=== PATIENT | male | born 1945 | race Caucasian/White ===

== ENCOUNTER 2018-02-25 14:25 | Inpatient (IN) | payer MEDICARE, MEDICAID ==
[2018-02-25] MEDS ORDERED: Acetaminophen 650 MG Supp RECTAL ONE (14:58)
--- NOTE | 2018-02-25 15:05 | CT ---
Head CT Technique: Multiple axial sections through the brain were obtained. Intravenous contrast was not utilized. Comparison: Prior head CT study of 05/01/16 and MRI brain of 05/03/16. Findings: Ventricles along with basal cisterns and sulci over the convexities are moderately prominent. Diminished density is noted within portions of the periventricular white matter compatible with small vessel ischemic demyelination change. Several small old infarcts are noted within the left occipital lobe. Several old lacunar infarcts are seen within the basal ganglia. No other abnormal parenchymal densities are seen. No evidence of intracranial hemorrhage. No midline shift or mass effect is seen. Bone window settings were reviewed which shows the visualized sinuses to appear clear. No acute calvarial abnormality is seen. Impression: 1. Senescent change as noted above. No acute intracranial abnormality is identified. Diagnostic code #2
[2018-02-25] MEDS ORDERED: Sodium Chloride 0.9% 1,000 ML IV ONE ×4 (15:19→18:05)
[2018-02-25] MEDS ORDERED: Albuterol/Ipratropium 3.0-0.5 MG/3 ML Neb Soln NEB ONE (15:26)
--- NOTE | 2018-02-25 15:54 | CR ---
Chest: Portable view of the chest was obtained. Comparison: Prior chest x-ray of 05/04/16. Heart size is slightly enlarged. Tortuous thoracic aorta is seen. Lungs are clear with no acute parenchymal densities. Bony structures are grossly intact. Impression: 1. Slight cardiomegaly. Nothing acute is appreciated on portable chest x-ray. Diagnostic code #2
[2018-02-25] MEDS ORDERED: cefTRIAXone 2 GM in Sodium Chloride 0.9% 100 ML IV ONE (17:18)
[2018-02-25] MEDS ORDERED: Pantoprazole 40 MG Vial IVPUSH ONE (17:57)
--- NOTE | 2018-02-25 18:09 | EDM.PDOC ---
ED HPI GENERAL MEDICAL PROBLEM - General Chief Complaint: Neuro Symptoms/Deficits Stated Complaint: AMBULANCE Time Seen by Provider: 02/25/18 14:49 Source of Information: Reports: Patient, Family, Usp Records History Limitations: Reports: Altered Mental Status - History of Present Illness INITIAL COMMENTS - FREE TEXT/NARRATIVE: The patient presents from [facility] by [facility] for an unresponsive episode. He was last known well about 12:30pm today. He went unresponsive and then he vomited what looked like blood. He has a fever or 103 when he arrived here. He had no seizure activity. He has no cough. He is alert now but will only answer yes or no and he will follow some commands. He is in the long-term because or a stroke with left sided weakness. He has no headache, chest pain, shortenss of breath, or cough. He has no abdominal pain. Onset: Sudden Duration: Minutes: Severity: Moderate Improves with: Reports: None Worsens with: Reports: None Associated Symptoms: Reports: Fever/Chills, Nausea/Vomiting. Denies: Chest Pain , Cough, Headaches, Shortness of Breath - Related Data Allergies Allergy/AdvReac Type Severity Reaction Status Date / Time No Known Allergies Allergy Verified 05/01/16 15:13 Home Meds: Home Meds Aspirin [Halfprin] 81 mg PO DAILY #30 tab.ec 05/07/16 [Rx] Captopril [Capoten] 12.5 mg PO Q8H #30 tablet 05/07/16 [Rx] Clopidogrel [Plavix] 75 mg PO DAILY #30 tablet 05/07/16 [Rx] Furosemide [Lasix] 10 mg PO DAILY #30 tablet 05/07/16 [Rx] Sertraline [Zoloft] 25 mg PO DAILY #30 tablet 05/07/16 [Rx] Simvastatin [Zocor] 10 mg PO BEDTIME #30 tablet 05/07/16 [Rx] Sulfamethoxazole/Trimethoprim [IJD: Sulfamethoxazole/Trimethoprim DS] 1 tab PO BID #14 tablet 05/07/16 [Rx] amLODIPine [Norvasc] 5 mg PO BEDTIME #30 tablet 05/07/16 [Rx] traZODone 50 mg PO BEDTIME #30 tablet 05/07/16 [Rx] Past Medical History - Past Health History Medical/Surgical History: Denies Medical/Surgical History HEENT History: Reports: Hard of Hearing Cardiovascular History: Reports: Hypertension Respiratory History: Reports: Asthma Other Respiratory History: thinks the asthma went away on its own;had it in high school Gastrointestinal History: Reports: Chronic Constipation Genitourinary History: Reports: Retention, Urinary Musculoskeletal History: Reports: Osteoarthritis Neurological History: Reports: CVA Other Neuro History: 2010 Psychiatric History: Reports: Depression Other Psychiatric History: insomnia - Past Surgical History HEENT Surgical History: Reports: Tonsillectomy Social & Family History - Family History Family Medical History: Noncontributory - Tobacco Use Smoking Status *Q: Unknown Ever Smoked - Caffeine Use Caffeine Use: Reports: None - Living Situation & Occupation Living situation: Reports: Single, Alone Occupation: Retired ED ROS GENERAL - Review of Systems Review Of Systems: See Below Constitutional: Reports: Fever, Chills HEENT: Reports: No Symptoms Respiratory: Reports: No Symptoms Cardiovascular: Reports: No Symptoms Endocrine: Reports: No Symptoms GI/Abdominal: Reports: Nausea, Vomiting. Denies: Abdominal Pain ED EXAM, NEURO - Physical Exam Exam: See Below Exam Limited By: No Limitations General Appearance: Alert, No Apparent Distress Ears: Normal External Exam Nose: Normal Inspection Head Exam: Atraumatic, Normocephalic Neck: Normal Inspection Respiratory/Chest: No Respiratory Distress, Rhonchi Cardiovascular: Regular Rate, Rhythm, No Edema, No Murmur GI/Abdominal: Soft, Non-Tender, No Organomegaly, No Mass Neurological: Alert, Other (Left sided weakness) EKG INTERPRETATION EKG Date: 02/25/18 Time: 14:59 Rhythm: Other (sinus tachycardia) Rate (Beats/Min): 115 [place]: Normal P-Wave: Present QRS: RBBB ST-T: Normal QT: Normal Course - Vital Signs Last Recorded V/S: Last Vital Signs Temp 103.9 F H 02/25/18 15:11 Pulse 122 H 02/25/18 14:35 Resp 40 H 02/25/18 14:35 BP 123/80 02/25/18 14:35 Pulse Ox 94 L 02/25/18 15:26 - Orders/Labs/Meds Orders: Active Orders 24 hr Category Date Time Status EKG Documentation Completion [RC] ASDIRECTED Care 02/25/18 15:27 Active RT Aerosol Therapy [RC] ASDIRECTED Care 02/25/18 15:26 Active CULTURE BLOOD [BC] Stat Lab 02/25/18 15:18 Received CULTURE BLOOD [BC] Stat Lab 02/25/18 15:29 Received CULTURE URINE [RM] Stat Lab 02/25/18 16:40 Received LACTIC ACID [CHEM] Stat Lab 02/25/18 17:58 Ordered UA W/MICROSCOPIC [URIN] Stat Lab 02/25/18 16:40 Results cefTRIAXone [Rocephin] 2 gm Med 02/25/18 17:18 Active Sodium Chloride 0.9% [Normal Saline] 100 ml IV ONETIME Blood Culture x2 Reflex Set [OM.PC] Stat Oth 02/25/18 14:57 Ordered EKG 12 Lead [EK] Stat Ther 02/25/18 15:26 Ordered Medication Orders Ceftriaxone Sodium 2 gm/ (Sodium Chloride) 100 mls @ 100 mls/hr IV ONETIME ONE Stop: 02/25/18 18:17 Labs: Laboratory Tests 02/25/18 02/25/18 02/25/18 Range/Units 14:38 14:38 14:38 WBC 8.90 (4.23-9.07) K/mm3 RBC 6.08 (4.63-6.08) M/mm3 Hgb 16.6 (13.7-17.5) gm/L Hct 50.5 (40.1-51.0) % MCV 83.1 (79.0-92.2) fl MCH 27.3 (25.7-32.2) pg MCHC 32.9 (32.2-35.5) g/dl RDW Std Deviation 43.7 (35.1-43.9) fL Plt Count 235 (163-337) K/mm3 MPV 9.7 (9.4-12.3) fl Neut % (Auto) 96.2 H (34.0-67.9) % Lymph % (Auto) 2.1 L (21.8-53.1) % [place] % (Auto) 1.5 L (5.3-12.2) % Eos % (Auto) 0 L (0.8-7.0) Baso % (Auto) 0.0 L (0.1-1.2) % Neut # (Auto) 8.56 H (1.78-5.38) K/mm3 Lymph # (Auto) 0.19 L (1.32-3.57) K/mm3 [place] # (Auto) 0.13 L (0.30-0.82) K/mm3 Eos # (Auto) 0.00 L (0.04-0.54) K/mm3 Baso # (Auto) 0.00 L (0.01-0.08) K/mm3 Manual Slide Review Abnormal smear Sodium 141 (136-145) mEq/L Potassium 3.7 (3.5-5.1) mEq/L Chloride 106 (98-107) mEq/L Carbon Dioxide 21 (21-32) mEq/L Anion Gap 17.7 H (5-15) BUN 41 H (7-18) mg/dL Creatinine 2.8 H (0.7-1.3) mg/dL Est Cr Clr Drug Dosing TNP Estimated GFR (MDRD) 22 (>60) mL/min BUN/Creatinine Ratio 14.6 (14-18) Glucose 160 H (83-115) mg/dL POC Glucose (83-110) mg/dL Lactic Acid 3.5 H (0.4-2.0) mmol/L Calcium 9.1 (8.5-10.1) mg/dL Magnesium 2.2 (1.8-2.4) mg/dl Total Bilirubin 1.4 H (0.2-1.0) mg/dL AST 25 (15-37) U/L ALT 19 (16-63) U/L Alkaline Phosphatase 92 (46-116) U/L Troponin I 0.017 (0.00-0.056) ng/mL Total Protein 6.9 (6.4-8.2) g/dl Albumin 3.6 (3.4-5.0) g/dl Globulin 3.3 gm/dL Albumin/Globulin Ratio 1.1 (1-2) Urine Color (Yellow) Urine Appearance (Clear) Urine pH (5.0-8.0) Ur Specific [place] (1.005-1.030) Urine Protein (Negative) Urine Glucose (UA) (Negative) Urine Ketones (Negative) Urine Occult Blood (Negative) Urine Nitrite (Negative) Urine Bilirubin (Negative) Urine Urobilinogen (0.2-1.0) Ur Leukocyte Esterase (Negative) 02/25/18 02/25/18 Range/Units 14:40 16:40 WBC (4.23-9.07) K/mm3 RBC (4.63-6.08) M/mm3 Hgb (13.7-17.5) gm/L Hct (40.1-51.0) % MCV (79.0-92.2) fl MCH (25.7-32.2) pg MCHC (32.2-35.5) g/dl RDW Std Deviation (35.1-43.9) fL Plt Count (163-337) K/mm3 MPV (9.4-12.3) fl Neut % (Auto) (34.0-67.9) % Lymph % (Auto) (21.8-53.1) % [place] % (Auto) (5.3-12.2) % Eos % (Auto) (0.8-7.0) Baso % (Auto) (0.1-1.2) % Neut # (Auto) (1.78-5.38) K/mm3 Lymph # (Auto) (1.32-3.57) K/mm3 [place] # (Auto) (0.30-0.82) K/mm3 Eos # (Auto) (0.04-0.54) K/mm3 Baso # (Auto) (0.01-0.08) K/mm3 Manual Slide Review Sodium (136-145) mEq/L Potassium (3.5-5.1) mEq/L Chloride (98-107) mEq/L Carbon Dioxide (21-32) mEq/L Anion Gap (5-15) BUN (7-18) mg/dL Creatinine (0.7-1.3) mg/dL Est Cr Clr Drug Dosing Estimated GFR (MDRD) (>60) mL/min BUN/Creatinine Ratio (14-18) Glucose (83-115) mg/dL POC Glucose 144 H (83-110) mg/dL Lactic Acid (0.4-2.0) mmol/L Calcium (8.5-10.1) mg/dL Magnesium (1.8-2.4) mg/dl Total Bilirubin (0.2-1.0) mg/dL AST (15-37) U/L ALT (16-63) U/L Alkaline Phosphatase (46-116) U/L Troponin I (0.00-0.056) ng/mL Total Protein (6.4-8.2) g/dl Albumin (3.4-5.0) g/dl Globulin gm/dL Albumin/Globulin Ratio (1-2) Urine Color Yellow (Yellow) Urine Appearance Cloudy H (Clear) Urine pH 7.0 (5.0-8.0) Ur Specific [place] 1.020 (1.005-1.030) Urine Protein 1+ H (Negative) Urine Glucose (UA) Negative (Negative) Urine Ketones Trace H (Negative) Urine Occult Blood 3+ H (Negative) Urine Nitrite Negative (Negative) Urine Bilirubin Negative (Negative) Urine Urobilinogen 0.2 (0.2-1.0) Ur Leukocyte Esterase 3+ H (Negative) Meds: Medications Generic Name Dose Route Start Last Admin Trade Name Freq PRN Reason Stop Dose Admin Ceftriaxone Sodium 2 gm/ 100 mls @ 100 mls/hr 02/25/18 17:18 Sodium Chloride IV 02/25/18 18:17 ONETIME ONE Discontinued Medications Generic Name Dose Route Start Last Admin Trade Name Freq PRN Reason Stop Dose Admin Acetaminophen 650 mg 02/25/18 14:58 02/25/18 15:11 Tylenol RECTAL 02/25/18 14:59 650 mg NOW ONE Administration Albuterol/Ipratropium 3 ml 02/25/18 15:26 02/25/18 15:28 Duoneb 3.0-0.5 Mg/3 Ml NEB 02/25/18 15:27 3 ml ONETIME ONE Administration Sodium Chloride 1,000 mls @ 1,000 mls/hr 02/25/18 15:19 02/25/18 16:10 Normal Saline IV 02/25/18 16:18 Not Given ONETIME ONE Sodium Chloride 1,000 mls @ 999 mls/hr 02/25/18 15:36 02/25/18 15:43 Normal Saline IV 02/25/18 16:36 999 mls/hr ONETIME ONE Administration Sodium Chloride 1,000 mls @ 999 mls/hr 02/25/18 16:53 02/25/18 16:55 Normal Saline IV 02/25/18 17:53 999 mls/hr ONETIME ONE Administration Pantoprazole Sodium 80 mg 02/25/18 17:57 Protonix Iv IVPUSH 02/25/18 17:58 .BOLUS ONE - Re-Assessments/Exams Free Text/Narrative Re-Assessment/Exam: 02/25/18 18:16 A stroke alert was called. The last time known well was 12:30 today. His temp was very high at 103.9. I am worried he is septic. I ordered a CT of his head , CXR, labs, blood cultures, UA and tylenol. His CT shows no acute changes. His CXR looks good. He did have some rhonchi when he came in and I ordered a duoneb. That did help. His CBC looked good but there was a predominance of neutrophils. His anion gap was elevated at 17.7. His creatinine was elevated at 2.8. His glucose was elevated at 160. His lactic acid was elevated at 3.5. I ordered a 30mL/kg bolus which is about 3120mls. His total bili was a little high at 1.4. his troponin was negative. His UA shows a UTI. I have ordered a urine culture. I also ordered some protonix for the hematemisis. He has a UTI and sepsis. His BP has been running low at times. He is still getting the 30ml/kg bolus. I feel he needs to be admitted. I called Dr Burroughs and he agreed to the admission. I did order rocephin after the blood culture and UA. Departure - Departure Time of Disposition: 18:25 Disposition: Admitted As Inpatient 66 Condition: Poor Clinical Impression: Unresponsive episode Sepsis Qualifiers: Sepsis type: sepsis due to unspecified organism Qualified Code(s): A41.9 - Sepsis, unspecified organism UTI (urinary tract infection) Qualifiers: Urinary tract infection type: site unspecified Hematuria presence: without hematuria Qualified Code(s): N39.0 - Urinary tract infection, site not specified Hypotension Qualifiers: Hypotension type: other hypotension type Qualified Code(s): I95.89 - Other hypotension Hematemesis Qualifiers: Nausea presence: with nausea Qualified Code(s): K92.0 - Hematemesis - Discharge Information Referrals: Richard Salazar MD [Primary Care Provider] - - My Orders Last 24 Hours: My Active Orders 02/25/18 14:57 Blood Culture x2 Reflex Set [OM.PC] Stat 02/25/18 15:18 CULTURE BLOOD [BC] Stat 02/25/18 15:26 RT Aerosol Therapy [RC] ASDIRECTED EKG 12 Lead [EK] Stat 02/25/18 15:27 EKG Documentation Completion [RC] ASDIRECTED 02/25/18 15:29 CULTURE BLOOD [BC] Stat 02/25/18 16:40 CULTURE URINE [RM] Stat UA W/MICROSCOPIC [URIN] Stat 02/25/18 17:18 cefTRIAXone [Rocephin] 2 gm Sodium Chloride 0.9% [Normal Saline] 100 ml IV ONETIME 02/25/18 17:58 LACTIC ACID [CHEM] Stat - Assessment/Plan Last 24 Hours: My Active Orders 02/25/18 14:57 Blood Culture x2 Reflex Set [OM.PC] Stat 02/25/18 15:18 CULTURE BLOOD [BC] Stat 02/25/18 15:26 RT Aerosol Therapy [RC] ASDIRECTED EKG 12 Lead [EK] Stat 02/25/18 15:27 EKG Documentation Completion [RC] ASDIRECTED 02/25/18 15:29 CULTURE BLOOD [BC] Stat 02/25/18 16:40 CULTURE URINE [RM] Stat UA W/MICROSCOPIC [URIN] Stat 02/25/18 17:18 cefTRIAXone [Rocephin] 2 gm Sodium Chloride 0.9% [Normal Saline] 100 ml IV ONETIME 02/25/18 17:58 LACTIC ACID [CHEM] Stat
[2018-02-25] MEDS ORDERED: Sodium Chloride 0.9% 1,000 ML IV SCH (19:00)
[2018-02-25] MEDS: Sodium Chloride 0.9% 1,000 ML IV SCH (19:07)
[2018-02-25] MEDS ORDERED: Bisacodyl 10 MG Supp RECTAL PRN (19:19)
[2018-02-25] MEDS ORDERED: LORazepam 2 MG/ML SDV IVPUSH PRN (19:19)
[2018-02-25] MEDS ORDERED: Sennosides 8.6 MG Tab PO PRN (19:19)
[2018-02-25] MEDS ORDERED: Metoprolol Tartrate 5 MG/5 ML SDV IVPUSH PRN (19:19)
[2018-02-25] MEDS ORDERED: Nicotine 21 MG/24 Hr Patch TRDERM PRN (19:19)
[2018-02-25] MEDS ORDERED: LORazepam 2 MG/ML SDV IV PRN (19:23)
[2018-02-25] MEDS ORDERED: Polyethylene Glycol 3350 Powder 17 GM Packet PO PRN (19:23)
[2018-02-25] MEDS ORDERED: Ondansetron 4 MG/2 ML SDV IV PRN (19:23)
[2018-02-25] MEDS ORDERED: HYDROmorphone 0.5 MG/0.5 ML SYRINGE IVPUSH PRN (19:23)
[2018-02-25] MEDS ORDERED: Acetaminophen/HYDROcodone 325-5 MG Tab PO PRN (19:23)
[2018-02-25] MEDS ORDERED: Bisacodyl 5 MG Tab PO PRN (19:23)
[2018-02-25] MEDS ORDERED: Promethazine 6.25 MG in Sodium Chloride 0.9% 50 ML IV PRN (19:23)
[2018-02-25] MEDS ORDERED: Docusate Sodium 100 MG Cap PO PRN (19:23)
[2018-02-25] MEDS ORDERED: Acetaminophen/Butalbital/Caffeine 325-50-40 MG Tab PO PRN (19:37)
[2018-02-25] MEDS ORDERED: Aluminum Hydroxide/Magnesium Hydroxide/Simethicone Susp 30 ML Cup PO PRN (19:44)
--- NOTE | 2018-02-25 20:14 | PCM.HP ---
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 No report of seizure activity. Patient is a very poor historian. HPI was obtained via secondary sources. On presentation to ED he was found to have a temperature of 103, tachycardia with a HR of 115 on EKG and Tachypneic with a RR of 40. His initial work up in ED shows a CBC remarkable for neutrophils of 26.2%, lymphocytes of 2.1%, monocytes of 1.5%, and eosinophils/basophils of 0%. His chemistry is significant for anion gap of 17.7, BUN of 41, creatinine of 2.8, glucose of 160 , lactic acid of 3.5, and total bilirubin of 1.4. His UA is strongly suggestive of urinary tract infection. His head CT scan report reads senescent change. No acute intra-cranial abnormality is identified. Patient is being admitted primarily for Sepsis secondary to UTI. He is full code - Related Data Allergies/Adverse Reactions: Allergies Allergy/AdvReac Type Severity Reaction Status Date / Time No Known Allergies Allergy Verified 05/01/16 15:13 Home Medications: Home Meds Clopidogrel [Plavix] 75 mg PO DAILY #30 tablet 05/07/16 [Rx] Furosemide [Lasix] 10 mg PO DAILY #30 tablet 05/07/16 [Rx] Simvastatin [Zocor] 10 mg PO BEDTIME #30 tablet 05/07/16 [Rx] Bisacodyl [Dulcolax] 10 mg RECTAL DAILY PRN 02/25/18 [History] Captopril [Capoten] 6.25 mg PO Q8H 02/25/18 [History] Mag Hydrox/Al Hydrox/Simeth [Liquid Antacid Suspension] 30 ml PO DAILY PRN 02/25 [History] Metoprolol Succinate 25 mg PO DAILY 02/25/18 [History] Sennosides [Senna] 2 tab PO DAILY 02/25/18 [History] Sennosides [Senna] 2 tab PO DAILY PRN 02/25/18 [History] Tamsulosin [Flomax] 2 cap PO DAILY 02/25/18 [History] traZODone 25 mg PO BEDTIME 02/25/18 [History] Past Medical History - Past Health History Medical/Surgical History: Denies Medical/Surgical History HEENT History: Reports: Hard of Hearing Cardiovascular History: Reports: Hypertension Respiratory History: Reports: Asthma Other Respiratory History: thinks the asthma went away on its own;had it in high school Gastrointestinal History: Reports: Chronic Constipation Genitourinary History: Reports: Retention, Urinary Musculoskeletal History: Reports: Osteoarthritis Neurological History: Reports: CVA Other Neuro History: 2010 Psychiatric History: Reports: Depression Other Psychiatric History: insomnia - Past Surgical History HEENT Surgical History: Reports: Tonsillectomy Social & Family History - Family History Family Medical History: Noncontributory - Tobacco Use Smoking Status *Q: Unknown Ever Smoked - Caffeine Use Caffeine Use: Reports: None - Living Situation & Occupation Living situation: Reports: Single, Alone Occupation: Retired H&P Review of Systems - Review of Systems: Review Of Systems: ROS reveals no pertinent complaints other than HPI. Exam - Exam Exam: See Below - Vital Signs Vital Signs: Last Vital Signs Temp 38.6 C H 02/25/18 19:33 Pulse 122 H 02/25/18 14:35 Resp 40 H 02/25/18 14:35 BP 123/80 02/25/18 14:35 Pulse Ox 94 L 02/25/18 15:26 Weight: 104.326 kg - Exam General: Alert, Cooperative. No: Mild Distress HEENT: Conjunctiva Clear, EOMI, Hearing Intact, Nares Patent, Normal Nasal Septum, Posterior Pharynx Clear, Pupils Equal, Pupils Reactive. No: Mucosa Moist & Ina Neck: Supple, Trachea Midline Lungs: Normal Respiratory Effort, Decreased Breath Sounds Cardiovascular: Tachycardia GI/Abdominal Exam: Normal Bowel Sounds, Soft, Non-Tender, No Organomegaly, No Distention, No Abnormal Bruit (Male) Exam: Circumcised, Cremasteric Reflex, Scrotal Swelling (mild), Scrotum Tenderness (R). No: Normal Prostate, Hernia, Inguinal Lymphadenopathy, Penile Lesions, Scrotum Tenderness (L), Suprapubic Fullness, Testicular Mass, Testicular Tenderness (L), Testicular Tenderness (R), Urethral Discharge Rectal (Males) Exam: Normal Rectal Tone, BPH. No: Prostate Nodule Back Exam: Normal Inspection, Decreased Range of Motion, Muscle Spasm Extremities: Limited Range of Motion, Other (trace edema on left lower extremity ). No: Non-Tender, Megan's Sign, Leg Pain, Redness Peripheral Pulses: 2+: Posterior Tibial (R), Dorsalis Pedis (L), Dorsalis Pedis (R) Skin: Warm, Dry, Intact, Rash (b/l groin and intergluteal cleft), Other ( hyperpigmentation on b/l lower extremity). No: Ecchymosis Neurological: Abnormal Gait. No: Normal Speech, Sensation Intact Neuro Extensive - Mental Status: Other (baseline hemiplegia and hemiparesis) Neuro Extensive - Motor, Sensory, Reflexes: Abnormal Gait, Other (has dysphonia and somewhat garbled speech). No: CN II-XII Intact (very limited and difficult to assess given his baseline neurological deficits) Psychiatric: Alert. No: Normal Affect, Suicidal Ideation - Patient Data Lab Results Last 24 hrs: Laboratory Results - last 24 hr 02/25/18 02/25/18 02/25/18 Range/Units 14:38 14:38 14:38 WBC 8.90 (4.23-9.07) K/mm3 RBC 6.08 (4.63-6.08) M/mm3 Hgb 16.6 (13.7-17.5) gm/L Hct 50.5 (40.1-51.0) % MCV 83.1 (79.0-92.2) fl MCH 27.3 (25.7-32.2) pg MCHC 32.9 (32.2-35.5) g/dl RDW Std Deviation 43.7 (35.1-43.9) fL Plt Count 235 (163-337) K/mm3 MPV 9.7 (9.4-12.3) fl Neut % (Auto) 96.2 H (34.0-67.9) % Lymph % (Auto) 2.1 L (21.8-53.1) % [place] % (Auto) 1.5 L (5.3-12.2) % Eos % (Auto) 0 L (0.8-7.0) Baso % (Auto) 0.0 L (0.1-1.2) % Neut # (Auto) 8.56 H (1.78-5.38) K/mm3 Lymph # (Auto) 0.19 L (1.32-3.57) K/mm3 [place] # (Auto) 0.13 L (0.30-0.82) K/mm3 Eos # (Auto) 0.00 L (0.04-0.54) K/mm3 Baso # (Auto) 0.00 L (0.01-0.08) K/mm3 Manual Slide Review Abnormal smear Sodium 141 (136-145) mEq/L Potassium 3.7 (3.5-5.1) mEq/L Chloride 106 (98-107) mEq/L Carbon Dioxide 21 (21-32) mEq/L Anion Gap 17.7 H (5-15) BUN 41 H (7-18) mg/dL Creatinine 2.8 H (0.7-1.3) mg/dL Est Cr Clr Drug Dosing TNP Estimated GFR (MDRD) 22 (>60) mL/min BUN/Creatinine Ratio 14.6 (14-18) Glucose 160 H (83-115) mg/dL POC Glucose (83-110) mg/dL Lactic Acid 3.5 H (0.4-2.0) mmol/L Calcium 9.1 (8.5-10.1) mg/dL Magnesium 2.2 (1.8-2.4) mg/dl Total Bilirubin 1.4 H (0.2-1.0) mg/dL AST 25 (15-37) U/L ALT 19 (16-63) U/L Alkaline Phosphatase 92 (46-116) U/L Troponin I 0.017 (0.00-0.056) ng/mL Total Protein 6.9 (6.4-8.2) g/dl Albumin 3.6 (3.4-5.0) g/dl Globulin 3.3 gm/dL Albumin/Globulin Ratio 1.1 (1-2) Urine Color (Yellow) Urine Appearance (Clear) Urine pH (5.0-8.0) Ur Specific Myra (1.005-1.030) Urine Protein (Negative) Urine Glucose (UA) (Negative) Urine Ketones (Negative) Urine Occult Blood (Negative) Urine Nitrite (Negative) Urine Bilirubin (Negative) Urine Urobilinogen (0.2-1.0) Ur Leukocyte Esterase (Negative) Urine RBC (0-5) /hpf Urine WBC (0-5) /hpf Urine WBC Clumps (NOT SEEN) /hpf Ur Epithelial Cells (0-5) /hpf Urine Bacteria (FEW) /hpf Urine Mucus (FEW) /hpf 02/25/18 02/25/18 02/25/18 Range/Units 14:40 16:40 18:15 WBC (4.23-9.07) K/mm3 RBC (4.63-6.08) M/mm3 Hgb (13.7-17.5) gm/L Hct (40.1-51.0) % MCV (79.0-92.2) fl MCH (25.7-32.2) pg MCHC (32.2-35.5) g/dl RDW Std Deviation (35.1-43.9) fL Plt Count (163-337) K/mm3 MPV (9.4-12.3) fl Neut % (Auto) (34.0-67.9) % Lymph % (Auto) (21.8-53.1) % [place] % (Auto) (5.3-12.2) % Eos % (Auto) (0.8-7.0) Baso % (Auto) (0.1-1.2) % Neut # (Auto) (1.78-5.38) K/mm3 Lymph # (Auto) (1.32-3.57) K/mm3 [place] # (Auto) (0.30-0.82) K/mm3 Eos # (Auto) (0.04-0.54) K/mm3 Baso # (Auto) (0.01-0.08) K/mm3 Manual Slide Review Sodium (136-145) mEq/L Potassium (3.5-5.1) mEq/L Chloride (98-107) mEq/L Carbon Dioxide (21-32) mEq/L Anion Gap (5-15) BUN (7-18) mg/dL Creatinine (0.7-1.3) mg/dL Est Cr Clr Drug Dosing Estimated GFR (MDRD) (>60) mL/min BUN/Creatinine Ratio (14-18) Glucose (83-115) mg/dL POC Glucose 144 H (83-110) mg/dL Lactic Acid 1.7 (0.4-2.0) mmol/L Calcium (8.5-10.1) mg/dL Magnesium (1.8-2.4) mg/dl Total Bilirubin (0.2-1.0) mg/dL AST (15-37) U/L ALT (16-63) U/L Alkaline Phosphatase (46-116) U/L Troponin I (0.00-0.056) ng/mL Total Protein (6.4-8.2) g/dl Albumin (3.4-5.0) g/dl Globulin gm/dL Albumin/Globulin Ratio (1-2) Urine Color Yellow (Yellow) Urine Appearance Cloudy H (Clear) Urine pH 7.0 (5.0-8.0) Ur Specific Myra 1.020 (1.005-1.030) Urine Protein 1+ H (Negative) Urine Glucose (UA) Negative (Negative) Urine Ketones Trace H (Negative) Urine Occult Blood 3+ H (Negative) Urine Nitrite Negative (Negative) Urine Bilirubin Negative (Negative) Urine Urobilinogen 0.2 (0.2-1.0) Ur Leukocyte Esterase 3+ H (Negative) Urine RBC 40-50 H (0-5) /hpf Urine WBC 40-50 H (0-5) /hpf Urine WBC Clumps Few (NOT SEEN) /hpf Ur Epithelial Cells 0-5 (0-5) /hpf Urine Bacteria Many H (FEW) /hpf Urine Mucus Moderate H (FEW) /hpf Result Diagrams: 02/26/18 06:07 02/26/18 06:07 EKG INTERPRETATION EKG Date: 02/25/18 Time: 14:59 Rhythm: Other (Sinus Tachycardia) Rate (Beats/Min): 115 Phil Campbell: Normal P-Wave: Present QRS: RBBB ST-T: Normal QT: Normal Problem List Initiated/Reviewed/Updated: Yes Orders Last 24hrs: Active Orders 24 hr Category Date Time Status Patient Status [ADT] Routine ADT 02/25/18 19:32 Active Cardiac Monitoring [RC] CONTINUOUS Care 02/25/18 19:23 Active EKG Documentation Completion [RC] ASDIRECTED Care 02/25/18 15:27 Active Patel Catheter Insertion [Insert Urinary Catheter] [OM. Care 02/25/18 19:30 Ordered PC] Q24H Height and Weight [RC] DAILY Care 02/25/18 19:23 Active Intake and Output [RC] QSHIFT Care 02/25/18 19:23 Active Oxygen Therapy [RC] PRN Care 02/25/18 19:23 Active RT Aerosol Therapy [RC] ASDIRECTED Care 02/25/18 15:26 Active RT Aerosol Therapy [RC] ASDIRECTED Care 02/25/18 19:30 Active Up With Assistance [RC] ASDIRECTED Care 02/25/18 19:23 Active Up ad Luz [RC] ASDIRECTED Care 02/25/18 19:23 Active Urinary Catheter Assessment [RC] ASDIRECTED Care 02/25/18 19:24 Active VTE/DVT Education [RC] PER UNIT ROUTINE Care 02/25/18 19:23 Active Vital Signs [RC] Q4H Care 02/25/18 19:23 Active Consult to Case Management/Hearing Aid Assembly Supervisor [CONS] Cons 02/25/18 19:23 Active Routine OT Evaluation and Treatment [CONS] Routine Cons 02/25/18 19:23 Active PT Evaluation and Treatment [CONS] Routine Cons 02/25/18 19:23 Active Heart Healthy Diet [DIET] Diet 02/25/18 Dinner Active BASIC METABOLIC PANEL,BMP [CHEM] AM Lab 02/26/18 05:11 Ordered BASIC METABOLIC PANEL,BMP [CHEM] AM Lab 02/27/18 05:11 Ordered BASIC METABOLIC PANEL,BMP [CHEM] AM Lab 02/28/18 05:11 Ordered BASIC METABOLIC PANEL,BMP [CHEM] AM Lab 03/01/18 05:11 Ordered BASIC METABOLIC PANEL,BMP [CHEM] AM Lab 03/02/18 05:11 Ordered C-REACTIVE PROTEIN [CHEM] AM Lab 02/26/18 05:11 Ordered C-REACTIVE PROTEIN [CHEM] AM Lab 02/27/18 05:11 Ordered C-REACTIVE PROTEIN [CHEM] AM Lab 02/28/18 05:11 Ordered C-REACTIVE PROTEIN [CHEM] AM Lab 03/01/18 05:11 Ordered C-REACTIVE PROTEIN [CHEM] AM Lab 03/02/18 05:11 Ordered CBC WITH AUTO DIFF [HEME] AM Lab 02/26/18 05:11 Ordered CBC WITH AUTO DIFF [HEME] AM Lab 02/27/18 05:11 Ordered CBC WITH AUTO DIFF [HEME] AM Lab 02/28/18 05:11 Ordered CBC WITH AUTO DIFF [HEME] AM Lab 03/01/18 05:11 Ordered CBC WITH AUTO DIFF [HEME] AM Lab 03/02/18 05:11 Ordered CULTURE BLOOD [BC] Stat Lab 02/25/18 15:18 Received CULTURE BLOOD [BC] Stat Lab 02/25/18 15:29 Received CULTURE URINE [RM] Stat Lab 02/25/18 16:40 Received MAGNESIUM [CHEM] AM Lab 02/26/18 05:11 Ordered MAGNESIUM [CHEM] AM Lab 02/27/18 05:11 Ordered MAGNESIUM [CHEM] AM Lab 02/28/18 05:11 Ordered MAGNESIUM [CHEM] AM Lab 03/01/18 05:11 Ordered MAGNESIUM [CHEM] AM Lab 03/02/18 05:11 Ordered Acetaminophen/Butalbital/Caff [Fioricet 325-50-40 MG] Med 02/25/18 19:37 Active 1 tab PO Q6H PRN Acetaminophen/HYDROcodone [[place] 325-5 MG] Med 02/25/18 19:23 Active 1 tab PO Q4H PRN Albuterol/Ipratropium [DuoNeb 3.0-0.5 MG/3 ML] Med 02/25/18 19:23 Active 3 ml NEB Q4H PRN Alum Hydrox/Mag Hydrox/Simeth [Mag-Al Plus] Med 02/25/18 19:44 Active 30 ml PO DAILY PRN Bisacodyl [Dulcolax] Med 02/25/18 19:19 Active 10 mg RECTAL DAILY PRN Bisacodyl [Dulcolax] Med 02/25/18 19:23 Active 5 mg PO DAILY PRN Captopril [Capoten] Med 02/28/18 09:00 Active 6.25 mg PO Q8H Clopidogrel [Plavix] Med 02/26/18 09:00 Active 75 mg PO DAILY Docusate Sodium [Colace] Med 02/25/18 19:23 Active 100 mg PO BID PRN Docusate Sodium/Sennosides [Senna Plus] Med 02/25/18 19:23 Active 1 tab PO BID PRN Doxazosin [Cardura] Med 02/25/18 21:00 Active 2 mg PO BID Finasteride [Proscar] Med 02/25/18 21:00 Active 5 mg PO BEDTIME Furosemide [Lasix] Med 02/28/18 09:00 Active 10 mg PO DAILY HYDROmorphone [Dilaudid] Med 02/25/18 19:23 Active 0.25 mg IVPUSH Q2H PRN Heparin Sodium Med 02/25/18 19:30 Active 5,000 units SUBCUT Q8H LORazepam [Ativan] Med 02/25/18 19:23 Active 1 mg IV Q6H PRN LORazepam [Ativan] Med 02/25/18 19:19 Active 2 mg IVPUSH Q4H PRN Magnesium Rep Pharmacy to Dose [Pharmacy to Dose - Med 02/25/18 19:30 Pending Magnesium Replacement] 1 dose .XX ASDIRECTED Metoprolol Succinate [Toprol XL] Med 02/26/18 09:00 Active 25 mg PO DAILY Metoprolol Tartrate [Lopressor] Med 02/25/18 19:19 Active 5 mg IVPUSH Q4H PRN Nicotine [Habitrol] Med 02/25/18 19:19 Active 21 mg TRDERM DAILY PRN Ondansetron [Zofran] Med 02/25/18 19:23 Active 4 mg IV Q6H PRN Polyethylene Glycol 3350 [MiraLAX] Med 02/25/18 19:23 Active 17 gm PO DAILY PRN Potassium Rep Pharmacy to Dose [Pharmacy to Dose - Med 02/25/18 19:30 Pending Potassium Replacement] 1 dose .XX ASDIRECTED Promethazine [Phenergan] 6.25 mg Med 02/25/18 19:23 Active Sodium Chloride 0.9% [Normal Saline] 50 ml IV Q6H Saccharomyces Boulardii [Florastor] Med 02/26/18 09:00 Active 250 mg PO DAILY Sennosides [Senna] Med 02/26/18 09:00 Active 17.2 mg PO DAILY Sennosides [Senna] Med 02/25/18 19:19 Active 17.2 mg PO DAILY PRN Simvastatin [Zocor] Med 02/25/18 21:00 Active 10 mg PO BEDTIME Sodium Chloride 0.9% [Normal Saline] 1,000 ml Med 02/25/18 19:00 Active IV ASDIRECTED Sodium Chloride 0.9% [Normal Saline] 1,000 ml Med 02/25/18 19:00 Active IV ASDIRECTED Tamsulosin [Flomax] Med 02/25/18 21:00 Active 0.8 mg PO BID cefTRIAXone [Rocephin] 1 gm Med 02/26/18 09:00 Active Sodium Chloride 0.9% [Normal Saline] 100 ml IV Q24H hydrALAZINE [Apresoline] Med 02/25/18 19:19 Active 20 mg IVPUSH Q4H PRN traZODone Med 02/25/18 21:00 Active 25 mg PO BEDTIME Blood Culture x2 Reflex Set [OM.PC] Stat Oth 02/25/18 14:57 Ordered Resuscitation Status Routine Resus Stat 02/25/18 19:23 Ordered EKG 12 Lead [EK] Stat Ther 02/25/18 15:26 Ordered Medication Orders Acetaminophen/Butalbital/Caffeine (Fioricet 325-50-40 Mg) 1 tab PO Q6H PRN PRN Reason: Headache Hydrocodone Bitart/Acetaminophen ([place] 325-5 Mg) 1 tab PO Q4H PRN PRN Reason: Pain (moderate 4-6) Al Hydroxide/Mg Hydroxide (Mag-Al Plus) 30 ml PO DAILY PRN PRN Reason: INDIGESTION Albuterol/Ipratropium (Duoneb 3.0-0.5 Mg/3 Ml) 3 ml NEB Q4H PRN PRN Reason: Shortness Of Breath/wheezing Bisacodyl (Dulcolax) 10 mg RECTAL DAILY PRN PRN Reason: Constipation Bisacodyl (Dulcolax) 5 mg PO DAILY PRN PRN Reason: Constipation Captopril (Capoten) 6.25 mg PO Q8H [facility] Clopidogrel Bisulfate (Plavix) 75 mg PO DAILY [facility] Docusate Sodium (Colace) 100 mg PO BID PRN PRN Reason: Constipation Doxazosin Mesylate (Cardura) 2 mg PO BID [facility] Finasteride (Proscar) 5 mg PO BEDTIME [facility] Furosemide (Lasix) 10 mg PO DAILY [facility] Heparin Sodium (Porcine) (Heparin Sodium) 5,000 units SUBCUT Q8H [facility] Hydralazine HCl (Apresoline) 20 mg IVPUSH Q4H PRN PRN Reason: Hypertension Hydromorphone HCl (Dilaudid) 0.25 mg IVPUSH Q2H PRN PRN Reason: Pain (severe 7-10) Sodium Chloride (Normal Saline) 1,000 mls @ 150 mls/hr IV ASDIRECTED [facility] Last Admin: 02/25/18 19:07 Dose: 150 mls/hr Sodium Chloride (Normal Saline) 1,000 mls @ 150 mls/hr IV ASDIRECTED [facility] Ceftriaxone Sodium 1 gm/ (Sodium Chloride) 100 mls @ 200 mls/hr IV Q24H [facility] Promethazine HCl 6.25 mg/ (Sodium Chloride) 50.25 mls @ 100 mls/hr IV Q6H PRN PRN Reason: Nausea/Vomiting Lorazepam (Ativan) 2 mg IVPUSH Q4H PRN PRN Reason: Seizures Lorazepam (Ativan) 1 mg IV Q6H PRN PRN Reason: Anxiety Magnesium Sulfate (Pharmacy To Dose - Magnesium Replacement) 1 dose .XX ASDIRECTED [facility] Metoprolol Succinate (Toprol Xl) 25 mg PO DAILY [facility] Metoprolol Tartrate (Lopressor) 5 mg IVPUSH Q4H PRN PRN Reason: Tachycardia Nicotine (Habitrol) 21 mg TRDERM DAILY PRN PRN Reason: Nicotine Dependence Ondansetron HCl (Zofran) 4 mg IV Q6H PRN PRN Reason: Nausea/Vomiting Polyethylene Glycol (Miralax) 17 gm PO DAILY PRN PRN Reason: Constipation Potassium Chloride (Pharmacy To Dose - Potassium Replacement) 1 dose .XX ASDIRECTED [facility] Saccharomyces Boulardii (Florastor) 250 mg PO DAILY [facility] Senna (Senna) 17.2 mg PO DAILY [facility] Senna (Senna) 17.2 mg PO DAILY PRN PRN Reason: Constipation Senna/Docusate Sodium (Senna Plus) 1 tab PO BID PRN PRN Reason: Constipation Simvastatin (Zocor) 10 mg PO BEDTIME [facility] Tamsulosin HCl (Flomax) 0.8 mg PO BID [facility] Trazodone HCl (Trazodone) 25 mg PO BEDTIME [facility] Assessment/Plan Comment:: Assessment/Plan: Acute: AMS - 2/2 Metabolic Encephalopathy - Head CT scan showed no acute abnormal findings - UA is strongly suggestive of UTI - She seems to be more responsive Sepsis w/ Hypotension - 2/2 UTI - Tachypneic with RR of 40, Hypoxic 88% on RA, Tachycardic with HR of 122, Febrile with a Temp as high as 39.9 C, and Hypotension of 97/60 mmHg - LA is 3.5 --> pending repeat level - WBC is normal - Currently aggressively hydrating - Blood Culture x2 - IV Rocephin 1 gram daily UTI - Risk factors: Urinary Retention, Immobility, Incontinence, Wears Pads, Hygiene Issues - Skin irritation and in the groin; smegma around his penis; foul smell Non-Oliguric Renal Failure - Risk factors: Urinary Retention, Immobility, Obstructive Uropathy, Hx/o CVA and BPH - Only on flomax daily - Currently hydration - Hold ACEI and Lasix - Patel catheter to monitor Is/Os - Avoid Neprhotic Agent - Renal U/S in AM Severe Urinary Retention - 2/2 Obstructive and Reflux Uropathy - Had over 1500ml after straight cath in ED - Prostate is enlarged but smooth - Change Flomax 0.4 mg po to BID, and add Finasteride 5 mg po HS and Doxazosin 2 mg po BID Dehydration - 2/2 Intravascular Volume Depletion - Skin turgor is delayed and oral membranes are dry - IV hydration - Monitor Is/Os Skin Breakdown - Redness and Irritation on his groin and intergluteal cleft - Risk factors: incontinence and wears pad - Skin breakdown protocol Chronic: Impaired Hearing (Sensori-neural hearing loss) 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
[2018-02-25] MEDS ORDERED: Tamsulosin 0.4 MG Cap.ER PO SCH (21:00)
[2018-02-25] MEDS: Heparin Sodium 5,000 Units/ML Vial SUBCUT SCH (21:00)
[2018-02-25] MEDS: Finasteride 5 MG Tab PO SCH (21:01)
[2018-02-25] MEDS: traZODone 50 MG Tab PO SCH (21:01)
[2018-02-25] MEDS: Tamsulosin 0.4 MG Cap.ER PO SCH (21:01)
[2018-02-25] MEDS: Doxazosin 2 MG Tab PO SCH (21:01)
[2018-02-25] MEDS: Simvastatin 10 MG Tab PO SCH (21:01)
[2018-02-26] MEDS: Heparin Sodium 5,000 Units/ML Vial SUBCUT SCH ×3 (02:44→20:14)
[2018-02-26] MEDS: Sodium Chloride 0.9% 1,000 ML IV SCH ×3 (02:47→18:00)
[2018-02-26] MEDS ORDERED: HYDROmorphone 0.5 MG/0.5 ML Syringe IVPUSH PRN (07:15)
[2018-02-26] MEDS: Saccharomyces Boulardii (Probiotic) 250 MG Cap PO SCH (08:38)
[2018-02-26] MEDS: Doxazosin 2 MG Tab PO SCH ×2 (08:38→20:14)
[2018-02-26] MEDS: Clopidogrel 75 MG Tab PO SCH (08:38)
[2018-02-26] MEDS: Tamsulosin 0.4 MG Cap.ER PO SCH ×2 (08:38→20:14)
[2018-02-26] MEDS: Sennosides 8.6 MG Tab PO SCH (08:38)
[2018-02-26] MEDS ORDERED: cefTRIAXone 1 GM in Sodium Chloride 0.9% 100 ML IV SCH (09:00)
[2018-02-26] MEDS ORDERED: Furosemide 20 MG Tab PO SCH (09:00)
[2018-02-26] MEDS: Metoprolol Succinate 25 MG Tab.ER PO SCH (09:10)
--- NOTE | 2018-02-26 10:15 | US ---
Renal ultrasound: Multiple real-time images of the kidneys were obtained. Comparison: No prior renal imaging. Findings: Extrarenal pelvis is noted within the right kidney which is felt to be incidental. Right kidney otherwise appears normal by ultrasound exam. Left kidney shows no hydronephrosis. Small echogenic finding is seen within the lower pole either due to calcification or small angiomyolipoma. No additional abnormality is seen within the left kidney. Resistivity indices are normal within both kidneys. Patel catheter seen within the bladder. Impression: 1. Extrarenal pelvis within the right kidney which is felt to be incidental. 2. Small echogenic area within the lower left kidney also felt to be incidental as described above. 3. Renal ultrasound is otherwise unremarkable. Diagnostic code #2
--- NOTE | 2018-02-26 11:22 | PCM.PN ---
<Shelley Lezama - Last Filed: 02/26/18 11:06> - General Info Date of Service: 02/26/18 Admission Dx/Problem (Free Text): Admission Diagnosis/Problem Admission Diagnosis/Problem UTI, Urinary tract infectious disease Functional Status: Reports: Pain Controlled - Review of Systems General: Reports: No Symptoms HEENT: Reports: No Symptoms Pulmonary: Reports: No Symptoms Cardiovascular: Reports: No Symptoms Gastrointestinal: Reports: No Symptoms Genitourinary: Reports: No Symptoms Musculoskeletal: Reports: No Symptoms Skin: Reports: No Symptoms Neurological: Reports: No Symptoms Psychiatric: Reports: No Symptoms Systems Review Comment:: Patient denies any pain or symptoms. Slept well with no issues through the night. He is feeling better than he was yesterday. He has no questions or concerns currently. - Patient Data Vitals - Most Recent: Last Vital Signs Temp 99.0 F 02/26/18 07:47 Pulse 74 02/26/18 09:10 Resp 25 H 02/26/18 07:47 BP 91/63 02/26/18 09:10 Pulse Ox 97 02/26/18 07:47 Weight - Most Recent: 91.172 kg I&O - Last 24 Hours: Intake & Output 02/25/18 02/26/18 02/26/18 22:59 06:59 14:59 Intake Total 180 2033 120 Output Total 1200 650 125 Balance -1020 1383 -5 Lab Results Last 24 Hours: Laboratory Results - last 24 hr 02/25/18 02/25/18 02/25/18 Range/Units 14:38 14:38 14:38 WBC 8.90 (4.23-9.07) K/mm3 RBC 6.08 (4.63-6.08) M/mm3 Hgb 16.6 (13.7-17.5) gm/L Hct 50.5 (40.1-51.0) % MCV 83.1 (79.0-92.2) fl MCH 27.3 (25.7-32.2) pg MCHC 32.9 (32.2-35.5) g/dl RDW Std Deviation 43.7 (35.1-43.9) fL Plt Count 235 (163-337) K/mm3 MPV 9.7 (9.4-12.3) fl Neut % (Auto) 96.2 H (34.0-67.9) % Lymph % (Auto) 2.1 L (21.8-53.1) % [place] % (Auto) 1.5 L (5.3-12.2) % Eos % (Auto) 0 L (0.8-7.0) Baso % (Auto) 0.0 L (0.1-1.2) % Neut # (Auto) 8.56 H (1.78-5.38) K/mm3 Lymph # (Auto) 0.19 L (1.32-3.57) K/mm3 [place] # (Auto) 0.13 L (0.30-0.82) K/mm3 Eos # (Auto) 0.00 L (0.04-0.54) K/mm3 Baso # (Auto) 0.00 L (0.01-0.08) K/mm3 Manual Slide Review Abnormal smear Sodium 141 (136-145) mEq/L Potassium 3.7 (3.5-5.1) mEq/L Chloride 106 (98-107) mEq/L Carbon Dioxide 21 (21-32) mEq/L Anion Gap 17.7 H (5-15) BUN 41 H (7-18) mg/dL Creatinine 2.8 H (0.7-1.3) mg/dL Est Cr Clr Drug Dosing TNP Estimated GFR (MDRD) 22 (>60) mL/min BUN/Creatinine Ratio 14.6 (14-18) Glucose 160 H (83-115) mg/dL POC Glucose (83-110) mg/dL Lactic Acid 3.5 H (0.4-2.0) mmol/L Calcium 9.1 (8.5-10.1) mg/dL Magnesium 2.2 (1.8-2.4) mg/dl Total Bilirubin 1.4 H (0.2-1.0) mg/dL AST 25 (15-37) U/L ALT 19 (16-63) U/L Alkaline Phosphatase 92 (46-116) U/L Troponin I 0.017 (0.00-0.056) ng/mL C-Reactive Protein (<1.0) mg/dL Total Protein 6.9 (6.4-8.2) g/dl Albumin 3.6 (3.4-5.0) g/dl Globulin 3.3 gm/dL Albumin/Globulin Ratio 1.1 (1-2) Urine Color (Yellow) Urine Appearance (Clear) Urine pH (5.0-8.0) Ur Specific [place] (1.005-1.030) Urine Protein (Negative) Urine Glucose (UA) (Negative) Urine Ketones (Negative) Urine Occult Blood (Negative) Urine Nitrite (Negative) Urine Bilirubin (Negative) Urine Urobilinogen (0.2-1.0) Ur Leukocyte Esterase (Negative) Urine RBC (0-5) /hpf Urine WBC (0-5) /hpf Urine WBC Clumps (NOT SEEN) /hpf Ur Epithelial Cells (0-5) /hpf Urine Bacteria (FEW) /hpf Urine Mucus (FEW) /hpf 02/25/18 02/25/18 02/25/18 Range/Units 14:40 16:40 18:15 WBC (4.23-9.07) K/mm3 RBC (4.63-6.08) M/mm3 Hgb (13.7-17.5) gm/L Hct (40.1-51.0) % MCV (79.0-92.2) fl MCH (25.7-32.2) pg MCHC (32.2-35.5) g/dl RDW Std Deviation (35.1-43.9) fL Plt Count (163-337) K/mm3 MPV (9.4-12.3) fl Neut % (Auto) (34.0-67.9) % Lymph % (Auto) (21.8-53.1) % [place] % (Auto) (5.3-12.2) % Eos % (Auto) (0.8-7.0) Baso % (Auto) (0.1-1.2) % Neut # (Auto) (1.78-5.38) K/mm3 Lymph # (Auto) (1.32-3.57) K/mm3 [place] # (Auto) (0.30-0.82) K/mm3 Eos # (Auto) (0.04-0.54) K/mm3 Baso # (Auto) (0.01-0.08) K/mm3 Manual Slide Review Sodium (136-145) mEq/L Potassium (3.5-5.1) mEq/L Chloride (98-107) mEq/L Carbon Dioxide (21-32) mEq/L Anion Gap (5-15) BUN (7-18) mg/dL Creatinine (0.7-1.3) mg/dL Est Cr Clr Drug Dosing Estimated GFR (MDRD) (>60) mL/min BUN/Creatinine Ratio (14-18) Glucose (83-115) mg/dL POC Glucose 144 H (83-110) mg/dL Lactic Acid 1.7 (0.4-2.0) mmol/L Calcium (8.5-10.1) mg/dL Magnesium (1.8-2.4) mg/dl Total Bilirubin (0.2-1.0) mg/dL AST (15-37) U/L ALT (16-63) U/L Alkaline Phosphatase (46-116) U/L Troponin I (0.00-0.056) ng/mL C-Reactive Protein (<1.0) mg/dL Total Protein (6.4-8.2) g/dl Albumin (3.4-5.0) g/dl Globulin gm/dL Albumin/Globulin Ratio (1-2) Urine Color Yellow (Yellow) Urine Appearance Cloudy H (Clear) Urine pH 7.0 (5.0-8.0) Ur Specific [place] 1.020 (1.005-1.030) Urine Protein 1+ H (Negative) Urine Glucose (UA) Negative (Negative) Urine Ketones Trace H (Negative) Urine Occult Blood 3+ H (Negative) Urine Nitrite Negative (Negative) Urine Bilirubin Negative (Negative) Urine Urobilinogen 0.2 (0.2-1.0) Ur Leukocyte Esterase 3+ H (Negative) Urine RBC 40-50 H (0-5) /hpf Urine WBC 40-50 H (0-5) /hpf Urine WBC Clumps Few (NOT SEEN) /hpf Ur Epithelial Cells 0-5 (0-5) /hpf Urine Bacteria Many H (FEW) /hpf Urine Mucus Moderate H (FEW) /hpf 02/26/18 02/26/18 Range/Units 06:07 06:07 WBC 33.27 H (4.23-9.07) K/mm3 RBC 4.68 (4.63-6.08) M/mm3 Hgb 13.0 L (13.7-17.5) gm/L Hct 40.6 (40.1-51.0) % MCV 86.8 (79.0-92.2) fl MCH 27.8 (25.7-32.2) pg MCHC 32.0 L (32.2-35.5) g/dl RDW Std Deviation 45.8 H (35.1-43.9) fL Plt Count 194 (163-337) K/mm3 MPV 10.3 (9.4-12.3) fl Neut % (Auto) 87.4 H (34.0-67.9) % Lymph % (Auto) 4.8 L (21.8-53.1) % [place] % (Auto) 6.6 (5.3-12.2) % Eos % (Auto) 0 L (0.8-7.0) Baso % (Auto) 0.1 (0.1-1.2) % Neut # (Auto) 29.07 H (1.78-5.38) K/mm3 Lymph # (Auto) 1.60 (1.32-3.57) K/mm3 [place] # (Auto) 2.19 H (0.30-0.82) K/mm3 Eos # (Auto) 0.01 L (0.04-0.54) K/mm3 Baso # (Auto) 0.02 (0.01-0.08) K/mm3 Manual Slide Review Abnormal smear Sodium 145 (136-145) mEq/L Potassium 4.4 (3.5-5.1) mEq/L Chloride 112 H (98-107) mEq/L Carbon Dioxide 24 (21-32) mEq/L Anion Gap 13.4 (5-15) BUN 46 H (7-18) mg/dL Creatinine 2.6 H (0.7-1.3) mg/dL Est Cr Clr Drug Dosing 27.35 Estimated GFR (MDRD) 24 (>60) mL/min BUN/Creatinine Ratio 17.7 (14-18) Glucose 101 (83-115) mg/dL POC Glucose (83-110) mg/dL Lactic Acid (0.4-2.0) mmol/L Calcium 7.9 L (8.5-10.1) mg/dL Magnesium 2.0 (1.8-2.4) mg/dl Total Bilirubin (0.2-1.0) mg/dL AST (15-37) U/L ALT (16-63) U/L Alkaline Phosphatase (46-116) U/L Troponin I (0.00-0.056) ng/mL C-Reactive Protein 21.6 H* (<1.0) mg/dL Total Protein (6.4-8.2) g/dl Albumin (3.4-5.0) g/dl Globulin gm/dL Albumin/Globulin Ratio (1-2) Urine Color (Yellow) Urine Appearance (Clear) Urine pH (5.0-8.0) Ur Specific [place] (1.005-1.030) Urine Protein (Negative) Urine Glucose (UA) (Negative) Urine Ketones (Negative) Urine Occult Blood (Negative) Urine Nitrite (Negative) Urine Bilirubin (Negative) Urine Urobilinogen (0.2-1.0) Ur Leukocyte Esterase (Negative) Urine RBC (0-5) /hpf Urine WBC (0-5) /hpf Urine WBC Clumps (NOT SEEN) /hpf Ur Epithelial Cells (0-5) /hpf Urine Bacteria (FEW) /hpf Urine Mucus (FEW) /hpf Heladio Results Last 24 Hours: Microbiology 02/25/18 16:40 Urine Culture - Preliminary Urine, Catheterized Gram Negative Rods 02/25/18 15:29 Aerobic Blood Culture - Preliminary Blood - Venous - Lab Draw Gram Negative Rods Anaerobic Blood Culture - Preliminary Gram Negative Rods 02/25/18 15:18 Aerobic Blood Culture - Preliminary Blood - Venous Gram Negative Rods Anaerobic Blood Culture - Preliminary Gram Negative Rods Med Orders - Current: Current Medications Acetaminophen/Butalbital/Caffeine (Fioricet 325-50-40 Mg) 1 tab PO Q6H PRN PRN Reason: Headache Hydrocodone Bitart/Acetaminophen ([place] 325-5 Mg) 1 tab PO Q4H PRN PRN Reason: Pain (moderate 4-6) Al Hydroxide/Mg Hydroxide (Mag-Al Plus) 30 ml PO DAILY PRN PRN Reason: INDIGESTION Albuterol/Ipratropium (Duoneb 3.0-0.5 Mg/3 Ml) 3 ml NEB Q4H PRN PRN Reason: Shortness Of Breath/wheezing Bisacodyl (Dulcolax) 10 mg RECTAL DAILY PRN PRN Reason: Constipation Bisacodyl (Dulcolax) 5 mg PO DAILY PRN PRN Reason: Constipation Captopril (Capoten) 6.25 mg PO Q8H [facility] Clopidogrel Bisulfate (Plavix) 75 mg PO DAILY [facility] Last Admin: 02/26/18 08:38 Dose: 75 mg Docusate Sodium (Colace) 100 mg PO BID PRN PRN Reason: Constipation Doxazosin Mesylate (Cardura) 2 mg PO BID [facility] Last Admin: 02/26/18 08:38 Dose: 2 mg Finasteride (Proscar) 5 mg PO BEDTIME [facility] Last Admin: 02/25/18 21:01 Dose: 5 mg Furosemide (Lasix) 10 mg PO DAILY [facility] Heparin Sodium (Porcine) (Heparin Sodium) 5,000 units SUBCUT Q8H [facility] Last Admin: 02/26/18 11:00 Dose: 5,000 units Hydralazine HCl (Apresoline) 20 mg IVPUSH Q4H PRN PRN Reason: Hypertension Hydromorphone HCl (Dilaudid) 0.25 mg IVPUSH Q2H PRN PRN Reason: Pain (severe 7-10) Ceftriaxone Sodium 1 gm/ (Sodium Chloride) 100 mls @ 200 mls/hr IV Q24H [facility] Last Admin: 02/26/18 08:35 Dose: 200 mls/hr Promethazine HCl 6.25 mg/ (Sodium Chloride) 50.25 mls @ 100 mls/hr IV Q6H PRN PRN Reason: Nausea/Vomiting Sodium Chloride (Normal Saline) 1,000 mls @ 125 mls/hr IV ASDIRECTED [facility] Last Admin: 02/26/18 10:05 Dose: 125 mls/hr Lorazepam (Ativan) 2 mg IVPUSH Q4H PRN PRN Reason: Seizures Lorazepam (Ativan) 1 mg IV Q6H PRN PRN Reason: Anxiety Magnesium Sulfate (Pharmacy To Dose - Magnesium Replacement) 0 dose .XX ASDIRECTED PRN PRN Reason: RX TO DOSE MAG Metoprolol Succinate (Toprol Xl) 25 mg PO DAILY [facility] Last Admin: 02/26/18 09:10 Dose: Not Given Metoprolol Tartrate (Lopressor) 5 mg IVPUSH Q4H PRN PRN Reason: Tachycardia Nicotine (Habitrol) 21 mg TRDERM DAILY PRN PRN Reason: Nicotine Dependence Ondansetron HCl (Zofran) 4 mg IV Q6H PRN PRN Reason: Nausea/Vomiting Polyethylene Glycol (Miralax) 17 gm PO DAILY PRN PRN Reason: Constipation Potassium Chloride (Pharmacy To Dose - Potassium Replacement) 0 dose .XX ASDIRECTED PRN PRN Reason: RX TO DOSE K Saccharomyces Boulardii (Florastor) 250 mg PO DAILY [facility] Last Admin: 02/26/18 08:38 Dose: 250 mg Senna (Senna) 17.2 mg PO DAILY [facility] Last Admin: 02/26/18 08:38 Dose: 17.2 mg Senna (Senna) 17.2 mg PO DAILY PRN PRN Reason: Constipation Senna/Docusate Sodium (Senna Plus) 1 tab PO BID PRN PRN Reason: Constipation Simvastatin (Zocor) 10 mg PO BEDTIME [facility] Last Admin: 02/25/18 21:01 Dose: 10 mg Tamsulosin HCl (Flomax) 0.4 mg PO BID [facility] Last Admin: 02/26/18 08:38 Dose: 0.4 mg Trazodone HCl (Trazodone) 25 mg PO BEDTIME [facility] Last Admin: 02/25/18 21:01 Dose: 25 mg Discontinued Medications Acetaminophen (Tylenol) 650 mg RECTAL NOW ONE Stop: 02/25/18 14:59 Last Admin: 02/25/18 15:11 Dose: 650 mg Albuterol/Ipratropium (Duoneb 3.0-0.5 Mg/3 Ml) 3 ml NEB ONETIME ONE Stop: 02/25/18 15:27 Last Admin: 02/25/18 15:28 Dose: 3 ml Captopril (Capoten) 6.25 mg PO Q8H [facility] Furosemide (Lasix) 10 mg PO DAILY [facility] Hydromorphone HCl (Dilaudid) 0.25 mg IVPUSH Q2H PRN PRN Reason: Pain (severe 7-10) Sodium Chloride (Normal Saline) 1,000 mls @ 1,000 mls/hr IV ONETIME ONE Stop: 02/25/18 16:18 Last Admin: 02/25/18 16:10 Dose: Not Given Sodium Chloride (Normal Saline) 1,000 mls @ 999 mls/hr IV ONETIME ONE Stop: 02/25/18 16:36 Last Admin: 02/25/18 15:43 Dose: 999 mls/hr Sodium Chloride (Normal Saline) 1,000 mls @ 999 mls/hr IV ONETIME ONE Stop: 02/25/18 17:53 Last Admin: 02/25/18 16:55 Dose: 999 mls/hr Ceftriaxone Sodium 2 gm/ (Sodium Chloride) 100 mls @ 100 mls/hr IV ONETIME ONE Stop: 02/25/18 18:17 Last Admin: 02/25/18 18:05 Dose: 100 mls/hr Sodium Chloride (Normal Saline) 1,000 mls @ 999 mls/hr IV ONETIME ONE Stop: 02/25/18 19:05 Last Admin: 02/25/18 17:55 Dose: 999 mls/hr Sodium Chloride (Normal Saline) 1,000 mls @ 150 mls/hr IV ASDIRECTED [facility] Last Admin: 02/26/18 02:47 Dose: 150 mls/hr Sodium Chloride (Normal Saline) 1,000 mls @ 150 mls/hr IV ASDIRECTED [facility] Last Admin: 02/25/18 21:00 Dose: 150 mls/hr Pantoprazole Sodium (Protonix Iv) 80 mg IVPUSH .BOLUS ONE Stop: 02/25/18 17:58 Last Admin: 02/25/18 18:15 Dose: 80 mg Tamsulosin HCl (Flomax) 0.8 mg PO BID [facility] - Exam Quality Assessment: Supplemental Oxygen, Urine Catheter, DVT Prophylaxis General: Alert, Cooperative, No Acute Distress HEENT: Pupils Equal, Pupils Reactive, EOMI, Mucous Membr. Moist/[place] Neck: Supple, Trachea Midline Lungs: Clear to Auscultation, Normal Respiratory Effort Cardiovascular: Regular Rate, Regular Rhythm GI/Abdominal Exam: Normal Bowel Sounds, Soft, Non-Tender (Male) Exam: Deferred Extremities: Non-Tender, Pedal Edema (mild) Peripheral Pulses: 2+: Radial (L), Radial (R), Posterior Tibial (L), Posterior Tibial (R) Skin: Rash (groin) Neurological: Other (speech difficulty; hx of CVA) Psy/Mental Status: Normal Affect, Normal Mood Physical Findings Comments:: Patient is pleasant and cooperative. He appears comfortable and in no apparent distress. He does not communicate other than responding yes or no. He has supplemental oxygen and urinary catheter. Rash present in groin region. Mild peripheral edema of legs. No other abnormalities noted. - Problem List & Annotations (1) Sepsis SNOMED Code(s): 53120694 Code(s): A41.9 - SEPSIS, UNSPECIFIED ORGANISM Status: Acute Current Visit : Yes Qualifiers: Sepsis type: sepsis due to unspecified organism Qualified Code(s): A41.9 - Sepsis, unspecified organism (2) UTI (urinary tract infection) SNOMED Code(s): 33521116 Code(s): N39.0 - URINARY TRACT INFECTION, SITE NOT SPECIFIED Status: Acute Current Visit: Yes Qualifiers: Urinary tract infection type: site unspecified Hematuria presence: without hematuria Qualified Code(s): N39.0 - Urinary tract infection, site not specified - Problem List Review Problem List Initiated/Reviewed/Updated: Yes - Plan Plan:: Assessment/Plan: Acute: AMS, improving * 2/2 Metabolic Encephalopathy * Head CT scan showed no acute abnormal findings * UA is strongly suggestive of UTI * He seems to be more responsive today * Still having difficulty communicating - consult speech therapy Sepsis w/ Hypotension * 2/2 UTI * Vitals on admission: RR of 40, Hypoxic 88% on RA, Tachycardic with HR of 122, Febrile with a Temp as high as 39.9 C, and Hypotension of 97/60 mmHg * Today: RR 25; O2 97%; HR 74; temp 37.2; BP 91/63 * LA 3.5 --> 1.7 * WBC normal on admission; now elevated at 33.27 * IV hydration has been successful * Blood culture grew gram negative rods - repeat blood culture in 24 hrs * Continue IV Rocephin 1 gram daily UTI * Risk factors: Urinary Retention, Immobility, Incontinence, Wears Pads, Hygiene Issues * Skin irritation and in the groin; smegma around his penis; foul smell * Urine culture grew gram negative rods Non-Oliguric Renal Failure * Risk factors: Urinary Retention, Immobility, Obstructive Uropathy, Hx/o CVA and BPH * Only on flomax daily * Currently hydrating * Hold ACEI and Lasix * Patel catheter to monitor Is/Os * Avoid Nephrotic Agent * Renal U/S was benign Severe Urinary Retention * 2/2 Obstructive and Reflux Uropathy * Prostate is enlarged but smooth * Change Flomax 0.4 mg po to BID, and add Finasteride 5 mg po HS and Doxazosin 2 mg po BID Dehydration * 2/2 Intravascular Volume Depletion * Skin turgor is delayed and oral membranes are dry * IV hydration * Monitor Is/Os Skin Breakdown * Redness and Irritation on his groin and intergluteal cleft * Risk factors: incontinence and wears pad * Skin breakdown protocol Chronic: Impaired Hearing ([place]-neural hearing loss) Impaired Speech/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 Dr. Burroughs has examined the patient and reviewed the note. <Balbir Burroughs T - Last Filed: 02/26/18 14:47> - Patient Data Vitals - Most Recent: Last Vital Signs Temp 38.3 C H 02/26/18 14:15 Pulse 74 02/26/18 09:10 Resp 32 H 02/26/18 12:00 BP 108/71 02/26/18 12:00 Pulse Ox 96 02/26/18 12:00 I&O - Last 24 Hours: Intake & Output 02/25/18 02/26/18 02/26/18 22:59 06:59 14:59 Intake Total 180 2033 240 Output Total 1200 650 300 Balance -1020 1383 -60 Lab Results Last 24 Hours: Laboratory Results - last 24 hr 02/25/18 02/25/18 02/25/18 Range/Units 14:38 14:38 14:38 WBC 8.90 (4.23-9.07) K/mm3 RBC 6.08 (4.63-6.08) M/mm3 Hgb 16.6 (13.7-17.5) gm/L Hct 50.5 (40.1-51.0) % MCV 83.1 (79.0-92.2) fl MCH 27.3 (25.7-32.2) pg MCHC 32.9 (32.2-35.5) g/dl RDW Std Deviation 43.7 (35.1-43.9) fL Plt Count 235 (163-337) K/mm3 MPV 9.7 (9.4-12.3) fl Neut % (Auto) 96.2 H (34.0-67.9) % Lymph % (Auto) 2.1 L (21.8-53.1) % [place] % (Auto) 1.5 L (5.3-12.2) % Eos % (Auto) 0 L (0.8-7.0) Baso % (Auto) 0.0 L (0.1-1.2) % Neut # (Auto) 8.56 H (1.78-5.38) K/mm3 Lymph # (Auto) 0.19 L (1.32-3.57) K/mm3 [place] # (Auto) 0.13 L (0.30-0.82) K/mm3 Eos # (Auto) 0.00 L (0.04-0.54) K/mm3 Baso # (Auto) 0.00 L (0.01-0.08) K/mm3 Manual Slide Review Abnormal smear Sodium 141 (136-145) mEq/L Potassium 3.7 (3.5-5.1) mEq/L Chloride 106 (98-107) mEq/L Carbon Dioxide 21 (21-32) mEq/L Anion Gap 17.7 H (5-15) BUN 41 H (7-18) mg/dL Creatinine 2.8 H (0.7-1.3) mg/dL Est Cr Clr Drug Dosing TNP Estimated GFR (MDRD) 22 (>60) mL/min BUN/Creatinine Ratio 14.6 (14-18) Glucose 160 H (83-115) mg/dL POC Glucose (83-110) mg/dL Lactic Acid 3.5 H (0.4-2.0) mmol/L Calcium 9.1 (8.5-10.1) mg/dL Magnesium 2.2 (1.8-2.4) mg/dl Total Bilirubin 1.4 H (0.2-1.0) mg/dL AST 25 (15-37) U/L ALT 19 (16-63) U/L Alkaline Phosphatase 92 (46-116) U/L Troponin I 0.017 (0.00-0.056) ng/mL C-Reactive Protein (<1.0) mg/dL Total Protein 6.9 (6.4-8.2) g/dl Albumin 3.6 (3.4-5.0) g/dl Globulin 3.3 gm/dL Albumin/Globulin Ratio 1.1 (1-2) Urine Color (Yellow) Urine Appearance (Clear) Urine pH (5.0-8.0) Ur Specific [place] (1.005-1.030) Urine Protein (Negative) Urine Glucose (UA) (Negative) Urine Ketones (Negative) Urine Occult Blood (Negative) Urine Nitrite (Negative) Urine Bilirubin (Negative) Urine Urobilinogen (0.2-1.0) Ur Leukocyte Esterase (Negative) Urine RBC (0-5) /hpf Urine WBC (0-5) /hpf Urine WBC Clumps (NOT SEEN) /hpf Ur Epithelial Cells (0-5) /hpf Urine Bacteria (FEW) /hpf Urine Mucus (FEW) /hpf 02/25/18 02/25/18 02/25/18 Range/Units 14:40 16:40 18:15 WBC (4.23-9.07) K/mm3 RBC (4.63-6.08) M/mm3 Hgb (13.7-17.5) gm/L Hct (40.1-51.0) % MCV (79.0-92.2) fl MCH (25.7-32.2) pg MCHC (32.2-35.5) g/dl RDW Std Deviation (35.1-43.9) fL Plt Count (163-337) K/mm3 MPV (9.4-12.3) fl Neut % (Auto) (34.0-67.9) % Lymph % (Auto) (21.8-53.1) % [place] % (Auto) (5.3-12.2) % Eos % (Auto) (0.8-7.0) Baso % (Auto) (0.1-1.2) % Neut # (Auto) (1.78-5.38) K/mm3 Lymph # (Auto) (1.32-3.57) K/mm3 [place] # (Auto) (0.30-0.82) K/mm3 Eos # (Auto) (0.04-0.54) K/mm3 Baso # (Auto) (0.01-0.08) K/mm3 Manual Slide Review Sodium (136-145) mEq/L Potassium (3.5-5.1) mEq/L Chloride (98-107) mEq/L Carbon Dioxide (21-32) mEq/L Anion Gap (5-15) BUN (7-18) mg/dL Creatinine (0.7-1.3) mg/dL Est Cr Clr Drug Dosing Estimated GFR (MDRD) (>60) mL/min BUN/Creatinine Ratio (14-18) Glucose (83-115) mg/dL POC Glucose 144 H (83-110) mg/dL Lactic Acid 1.7 (0.4-2.0) mmol/L Calcium (8.5-10.1) mg/dL Magnesium (1.8-2.4) mg/dl Total Bilirubin (0.2-1.0) mg/dL AST (15-37) U/L ALT (16-63) U/L Alkaline Phosphatase (46-116) U/L Troponin I (0.00-0.056) ng/mL C-Reactive Protein (<1.0) mg/dL Total Protein (6.4-8.2) g/dl Albumin (3.4-5.0) g/dl Globulin gm/dL Albumin/Globulin Ratio (1-2) Urine Color Yellow (Yellow) Urine Appearance Cloudy H (Clear) Urine pH 7.0 (5.0-8.0) Ur Specific [place] 1.020 (1.005-1.030) Urine Protein 1+ H (Negative) Urine Glucose (UA) Negative (Negative) Urine Ketones Trace H (Negative) Urine Occult Blood 3+ H (Negative) Urine Nitrite Negative (Negative) Urine Bilirubin Negative (Negative) Urine Urobilinogen 0.2 (0.2-1.0) Ur Leukocyte Esterase 3+ H (Negative) Urine RBC 40-50 H (0-5) /hpf Urine WBC 40-50 H (0-5) /hpf Urine WBC Clumps Few (NOT SEEN) /hpf Ur Epithelial Cells 0-5 (0-5) /hpf Urine Bacteria Many H (FEW) /hpf Urine Mucus Moderate H (FEW) /hpf 02/26/18 02/26/18 Range/Units 06:07 06:07 WBC 33.27 H (4.23-9.07) K/mm3 RBC 4.68 (4.63-6.08) M/mm3 Hgb 13.0 L (13.7-17.5) gm/L Hct 40.6 (40.1-51.0) % MCV 86.8 (79.0-92.2) fl MCH 27.8 (25.7-32.2) pg MCHC 32.0 L (32.2-35.5) g/dl RDW Std Deviation 45.8 H (35.1-43.9) fL Plt Count 194 (163-337) K/mm3 MPV 10.3 (9.4-12.3) fl Neut % (Auto) 87.4 H (34.0-67.9) % Lymph % (Auto) 4.8 L (21.8-53.1) % [place] % (Auto) 6.6 (5.3-12.2) % Eos % (Auto) 0 L (0.8-7.0) Baso % (Auto) 0.1 (0.1-1.2) % Neut # (Auto) 29.07 H (1.78-5.38) K/mm3 Lymph # (Auto) 1.60 (1.32-3.57) K/mm3 [place] # (Auto) 2.19 H (0.30-0.82) K/mm3 Eos # (Auto) 0.01 L (0.04-0.54) K/mm3 Baso # (Auto) 0.02 (0.01-0.08) K/mm3 Manual Slide Review Abnormal smear Sodium 145 (136-145) mEq/L Potassium 4.4 (3.5-5.1) mEq/L Chloride 112 H (98-107) mEq/L Carbon Dioxide 24 (21-32) mEq/L Anion Gap 13.4 (5-15) BUN 46 H (7-18) mg/dL Creatinine 2.6 H (0.7-1.3) mg/dL Est Cr Clr Drug Dosing 27.35 Estimated GFR (MDRD) 24 (>60) mL/min BUN/Creatinine Ratio 17.7 (14-18) Glucose 101 (83-115) mg/dL POC Glucose (83-110) mg/dL Lactic Acid (0.4-2.0) mmol/L Calcium 7.9 L (8.5-10.1) mg/dL Magnesium 2.0 (1.8-2.4) mg/dl Total Bilirubin (0.2-1.0) mg/dL AST (15-37) U/L ALT (16-63) U/L Alkaline Phosphatase (46-116) U/L Troponin I (0.00-0.056) ng/mL C-Reactive Protein 21.6 H* (<1.0) mg/dL Total Protein (6.4-8.2) g/dl Albumin (3.4-5.0) g/dl Globulin gm/dL Albumin/Globulin Ratio (1-2) Urine Color (Yellow) Urine Appearance (Clear) Urine pH (5.0-8.0) Ur Specific [place] (1.005-1.030) Urine Protein (Negative) Urine Glucose (UA) (Negative) Urine Ketones (Negative) Urine Occult Blood (Negative) Urine Nitrite (Negative) Urine Bilirubin (Negative) Urine Urobilinogen (0.2-1.0) Ur Leukocyte Esterase (Negative) Urine RBC (0-5) /hpf Urine WBC (0-5) /hpf Urine WBC Clumps (NOT SEEN) /hpf Ur Epithelial Cells (0-5) /hpf Urine Bacteria (FEW) /hpf Urine Mucus (FEW) /hpf Hel[facility] Results Last 24 Hours: Microbiology 02/25/18 16:40 Urine Culture - Preliminary Urine, Catheterized Gram Negative Rods 02/25/18 15:29 Aerobic Blood Culture - Preliminary Blood - Venous - Lab Draw Gram Negative Rods Anaerobic Blood Culture - Preliminary Gram Negative Rods 02/25/18 15:18 Aerobic Blood Culture - Preliminary Blood - Venous Gram Negative Rods Anaerobic Blood Culture - Preliminary Gram Negative Rods Med Orders - Current: Current Medications Acetaminophen (Tylenol) 650 mg PO Q6H PRN PRN Reason: Fever Last Admin: 02/26/18 13:29 Dose: 650 mg Acetaminophen/Butalbital/Caffeine (Fioricet 325-50-40 Mg) 1 tab PO Q6H PRN PRN Reason: Headache Hydrocodone Bitart/Acetaminophen ([place] 325-5 Mg) 1 tab PO Q4H PRN PRN Reason: Pain (moderate 4-6) Al Hydroxide/Mg Hydroxide (Mag-Al Plus) 30 ml PO DAILY PRN PRN Reason: INDIGESTION Albuterol/Ipratropium (Duoneb 3.0-0.5 Mg/3 Ml) 3 ml NEB Q4H PRN PRN Reason: Shortness Of Breath/wheezing Bisacodyl (Dulcolax) 10 mg RECTAL DAILY PRN PRN Reason: Constipation Bisacodyl (Dulcolax) 5 mg PO DAILY PRN PRN Reason: Constipation Captopril (Capoten) 6.25 mg PO Q8H [facility] Clopidogrel Bisulfate (Plavix) 75 mg PO DAILY [facility] Last Admin: 02/26/18 08:38 Dose: 75 mg Docusate Sodium (Colace) 100 mg PO BID PRN PRN Reason: Constipation Doxazosin Mesylate (Cardura) 2 mg PO BID [facility] Last Admin: 02/26/18 08:38 Dose: 2 mg Finasteride (Proscar) 5 mg PO BEDTIME [facility] Last Admin: 02/25/18 21:01 Dose: 5 mg Furosemide (Lasix) 10 mg PO DAILY [facility] Heparin Sodium (Porcine) (Heparin Sodium) 5,000 units SUBCUT Q8H [facility] Last Admin: 02/26/18 11:00 Dose: 5,000 units Hydralazine HCl (Apresoline) 20 mg IVPUSH Q4H PRN PRN Reason: Hypertension Hydromorphone HCl (Dilaudid) 0.25 mg IVPUSH Q2H PRN PRN Reason: Pain (severe 7-10) Ceftriaxone Sodium 1 gm/ (Sodium Chloride) 100 mls @ 200 mls/hr IV Q24H [facility] Last Admin: 02/26/18 08:35 Dose: 200 mls/hr Promethazine HCl 6.25 mg/ (Sodium Chloride) 50.25 mls @ 100 mls/hr IV Q6H PRN PRN Reason: Nausea/Vomiting Sodium Chloride (Normal Saline) 1,000 mls @ 125 mls/hr IV ASDIRECTED [facility] Last Admin: 02/26/18 10:05 Dose: 125 mls/hr Lorazepam (Ativan) 2 mg IVPUSH Q4H PRN PRN Reason: Seizures Lorazepam (Ativan) 1 mg IV Q6H PRN PRN Reason: Anxiety Magnesium Sulfate (Pharmacy To Dose - Magnesium Replacement) 0 dose .XX ASDIRECTED PRN PRN Reason: RX TO DOSE MAG Metoprolol Succinate (Toprol Xl) 25 mg PO DAILY [facility] Last Admin: 02/26/18 09:10 Dose: Not Given Metoprolol Tartrate (Lopressor) 5 mg IVPUSH Q4H PRN PRN Reason: Tachycardia Nicotine (Habitrol) 21 mg TRDERM DAILY PRN PRN Reason: Nicotine Dependence Ondansetron HCl (Zofran) 4 mg IV Q6H PRN PRN Reason: Nausea/Vomiting Polyethylene Glycol (Miralax) 17 gm PO DAILY PRN PRN Reason: Constipation Potassium Chloride (Pharmacy To Dose - Potassium Replacement) 0 dose .XX ASDIRECTED PRN PRN Reason: RX TO DOSE K Saccharomyces Boulardii (Florastor) 250 mg PO DAILY [facility] Last Admin: 02/26/18 08:38 Dose: 250 mg Senna (Senna) 17.2 mg PO DAILY [facility] Last Admin: 02/26/18 08:38 Dose: 17.2 mg Senna (Senna) 17.2 mg PO DAILY PRN PRN Reason: Constipation Senna/Docusate Sodium (Senna Plus) 1 tab PO BID PRN PRN Reason: Constipation Simvastatin (Zocor) 10 mg PO BEDTIME [facility] Last Admin: 02/25/18 21:01 Dose: 10 mg Tamsulosin HCl (Flomax) 0.4 mg PO BID [facility] Last Admin: 02/26/18 08:38 Dose: 0.4 mg Trazodone HCl (Trazodone) 25 mg PO BEDTIME [facility] Last Admin: 02/25/18 21:01 Dose: 25 mg Discontinued Medications Acetaminophen (Tylenol) 650 mg RECTAL NOW ONE Stop: 02/25/18 14:59 Last Admin: 02/25/18 15:11 Dose: 650 mg Albuterol/Ipratropium (Duoneb 3.0-0.5 Mg/3 Ml) 3 ml NEB ONETIME ONE Stop: 02/25/18 15:27 Last Admin: 02/25/18 15:28 Dose: 3 ml Captopril (Capoten) 6.25 mg PO Q8H [facility] Furosemide (Lasix) 10 mg PO DAILY [facility] Hydromorphone HCl (Dilaudid) 0.25 mg IVPUSH Q2H PRN PRN Reason: Pain (severe 7-10) Sodium Chloride (Normal Saline) 1,000 mls @ 1,000 mls/hr IV ONETIME ONE Stop: 02/25/18 16:18 Last Admin: 02/25/18 16:10 Dose: Not Given Sodium Chloride (Normal Saline) 1,000 mls @ 999 mls/hr IV ONETIME ONE Stop: 02/25/18 16:36 Last Admin: 02/25/18 15:43 Dose: 999 mls/hr Sodium Chloride (Normal Saline) 1,000 mls @ 999 mls/hr IV ONETIME ONE Stop: 02/25/18 17:53 Last Admin: 02/25/18 16:55 Dose: 999 mls/hr Ceftriaxone Sodium 2 gm/ (Sodium Chloride) 100 mls @ 100 mls/hr IV ONETIME ONE Stop: 02/25/18 18:17 Last Admin: 02/25/18 18:05 Dose: 100 mls/hr Sodium Chloride (Normal Saline) 1,000 mls @ 999 mls/hr IV ONETIME ONE Stop: 02/25/18 19:05 Last Admin: 02/25/18 17:55 Dose: 999 mls/hr Sodium Chloride (Normal Saline) 1,000 mls @ 150 mls/hr IV ASDIRECTED [facility] Last Admin: 02/26/18 02:47 Dose: 150 mls/hr Sodium Chloride (Normal Saline) 1,000 mls @ 150 mls/hr IV ASDIRECTED [facility] Last Admin: 02/25/18 21:00 Dose: 150 mls/hr Pantoprazole Sodium (Protonix Iv) 80 mg IVPUSH .BOLUS ONE Stop: 02/25/18 17:58 Last Admin: 02/25/18 18:15 Dose: 80 mg Tamsulosin HCl (Flomax) 0.8 mg PO BID HERNANDO - My Orders Last 24 Hours: My Active Orders 02/25/18 19:19 Bisacodyl [Dulcolax] 10 mg RECTAL DAILY PRN LORazepam [Ativan] 2 mg IVPUSH Q4H PRN Metoprolol Tartrate [Lopressor] 5 mg IVPUSH Q4H PRN Nicotine [Habitrol] 21 mg TRDERM DAILY PRN Sennosides [Senna] 17.2 mg PO DAILY PRN hydrALAZINE [Apresoline] 20 mg IVPUSH Q4H PRN 02/25/18 19:23 Height and Weight [RC] 04 Intake and Output [RC] Q2HR Oxygen Therapy [RC] PRN Up With Assistance [RC] ASDIRECTED VTE/DVT Education [RC] Vital Signs [RC] Q4HR Consult to Case Management/Fine Artist [CONS] Routine OT Evaluation and Treatment [CONS] Routine PT Evaluation and Treatment [CONS] Routine Acetaminophen/HYDROcodone [Raven 325-5 MG] 1 tab PO Q4H PRN Albuterol/Ipratropium [DuoNeb 3.0-0.5 MG/3 ML] 3 ml NEB Q4H PRN Bisacodyl [Dulcolax] 5 mg PO DAILY PRN Docusate Sodium [Colace] 100 mg PO BID PRN Docusate Sodium/Sennosides [Senna Plus] 1 tab PO BID PRN LORazepam [Ativan] 1 mg IV Q6H PRN Ondansetron [Zofran] 4 mg IV Q6H PRN Polyethylene Glycol 3350 [MiraLAX] 17 gm PO DAILY PRN Promethazine [Phenergan] 6.25 mg Sodium Chloride 0.9% [Normal Saline] 50 ml IV Q6H Resuscitation Status Routine 02/25/18 19:30 Heparin Sodium 5,000 units SUBCUT Q8H Magnesium Rep Pharmacy to Dose [Pharmacy to Dose - Magnesium Replacement] 0 dose .XX ASDIRECTED PRN Potassium Rep Pharmacy to Dose [Pharmacy to Dose - Potassium Replacement] 0 dose .XX ASDIRECTED PRN 02/25/18 19:37 Acetaminophen/Butalbital/Caff [Fioricet 325-50-40 MG] 1 tab PO Q6H PRN 02/25/18 19:44 Alum Hydrox/Mag Hydrox/Simeth [Mag-Al Plus] 30 ml PO DAILY PRN 02/25/18 20:35 Urinary Catheter Assessment [RC] Q4HR 02/25/18 20:36 Precautions [COMM] Routine 02/25/18 20:45 Insert Patel Catheter [Insert Urinary Catheter] [OM.PC] Q24H 02/25/18 21:00 Doxazosin [Cardura] 2 mg PO BID Finasteride [Proscar] 5 mg PO BEDTIME Simvastatin [Zocor] 10 mg PO BEDTIME Tamsulosin [Flomax] 0.4 mg PO BID traZODone 25 mg PO BEDTIME 02/25/18 Dinner Heart Healthy Diet [DIET] 02/26/18 07:15 HYDROmorphone [Dilaudid] 0.25 mg IVPUSH Q2H PRN 02/26/18 09:00 Clopidogrel [Plavix] 75 mg PO DAILY Metoprolol Succinate [Toprol XL] 25 mg PO DAILY Saccharomyces Boulardii [Florastor] 250 mg PO DAILY Sennosides [Senna] 17.2 mg PO DAILY cefTRIAXone [Rocephin] 1 gm Sodium Chloride 0.9% [Normal Saline] 100 ml IV Q24H 02/26/18 10:15 Sodium Chloride 0.9% [Normal Saline] 1,000 ml IV ASDIRECTED 02/26/18 10:30 EKG 12 Lead [EK] Routine 02/26/18 12:48 Acetaminophen [Tylenol] 650 mg PO Q6H PRN 02/27/18 05:11 BASIC METABOLIC PANEL,BMP [CHEM] AM C-REACTIVE PROTEIN [CHEM] AM CBC WITH AUTO DIFF [HEME] AM MAGNESIUM [CHEM] AM 02/28/18 05:11 BASIC METABOLIC PANEL,BMP [CHEM] AM C-REACTIVE PROTEIN [CHEM] AM CBC WITH AUTO DIFF [HEME] AM MAGNESIUM [CHEM] AM 02/28/18 09:00 Captopril [Capoten] 6.25 mg PO Q8H Furosemide [Lasix] 10 mg PO DAILY 03/01/18 05:11 BASIC METABOLIC PANEL,BMP [CHEM] AM C-REACTIVE PROTEIN [CHEM] AM CBC WITH AUTO DIFF [HEME] AM MAGNESIUM [CHEM] AM 03/02/18 05:11 BASIC METABOLIC PANEL,BMP [CHEM] AM C-REACTIVE PROTEIN [CHEM] AM CBC WITH AUTO DIFF [HEME] AM MAGNESIUM [CHEM] AM - Plan Plan:: The patient was seen and examined at bedside in concert with the medical student. The assessment and plans were discussed and agreed upon with me. No significant overnight or acute issues. He looks much better clinically this AM. His blood culture came back positive for GNRs. He is more engaging and he now talks. He is afebrile but his WBC is now 33K. Acute: AMS, Improving * 2/2 Metabolic Encephalopathy * Head CT scan showed no acute abnormal findings * UA is strongly suggestive of UTI * He seems to be more responsive today * Still having difficulty communicating - consult speech therapy Bacteremia w/ Hypotension, Improved * 2/2 UTI * Vitals on admission: RR of 40, Hypoxic 88% on RA, Tachycardic with HR of 122, Febrile with a Temp as high as 39.9 C, and Hypotension of 97/60 mmHg * Today: RR 25; O2 97%; HR 74; temp 37.2; BP 91/63 * LA 3.5 --> 1.7 * WBC normal on admission; now elevated at 33.27 * IV hydration has been successful * Blood culture grew gram negative rods - repeat blood culture in 24 hrs * Continue IV Rocephin 1 gram daily; if he gets worse--> will switch to BS Zosyn /Levaquin UTI * Risk factors: Urinary Retention, Immobility, Incontinence, Wears Pads, Hygiene Issues * Skin irritation and in the groin; smegma around his penis; foul smell * Urine culture grew gram negative rods Non-Oliguric Renal Failure, Slowly improving * Risk factors: Urinary Retention, Immobility, Obstructive Uropathy, Hx/o CVA and BPH * Only on flomax daily--> changed to BID * Currently hydrating * Hold ACEI and Lasix * Patel catheter to monitor Is/Os * Avoid Nephrotic Agent * Renal U/S was benign Severe Urinary Retention * 2/2 Obstructive and Reflux Uropathy * Prostate is enlarged but smooth * Change Flomax 0.4 mg po to BID, and add Finasteride 5 mg po HS and Doxazosin 2 mg po BID Skin Breakdown * Redness and Irritation on his groin and intergluteal cleft * Risk factors: incontinence and wears pad * Skin breakdown protocol Resolved: S/p Dehydration * 2/2 Intravascular Volume Depletion * Skin turgor is delayed and oral membranes are dry * IV hydration * Monitor Is/Os Chronic: Impaired Hearing (Sensori-neural hearing loss) Impaired Speech/Dysphonia 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
[2018-02-26] MEDS: Acetaminophen 325 MG Tab PO PRN (13:29)
[2018-02-26] MEDS ORDERED: Piperacillin/Tazobactam 4.5 GM in Sodium Chloride 0.9% 100 ML IV ONE (15:00)
[2018-02-26] MEDS ORDERED: Levofloxacin/Dextrose 5%-Water 500 MG in Premix Bag 1 BAG IV ONE (15:30)
[2018-02-26] MEDS: Albuterol/Ipratropium 3.0-0.5 MG/3 ML Neb Soln NEB PRN (16:17)
[2018-02-26] MEDS: Finasteride 5 MG Tab PO SCH (20:14)
[2018-02-26] MEDS: Simvastatin 10 MG Tab PO SCH (20:14)
[2018-02-26] MEDS: traZODone 50 MG Tab PO SCH (20:14)
[2018-02-26] MEDS: Piperacillin/Tazobactam 4.5 GM in Sodium Chloride 0.9% 100 ML IV SCH (22:54)
[2018-02-27] MEDS: Sodium Chloride 0.9% 1,000 ML IV SCH ×3 (01:59→18:51)
[2018-02-27] MEDS: Heparin Sodium 5,000 Units/ML Vial SUBCUT SCH ×3 (03:20→20:16)
[2018-02-27] MEDS: Piperacillin/Tazobactam 4.5 GM in Sodium Chloride 0.9% 100 ML IV SCH (06:05)
[2018-02-27] MEDS: Tamsulosin 0.4 MG Cap.ER PO SCH ×2 (08:26→20:16)
[2018-02-27] MEDS: Saccharomyces Boulardii (Probiotic) 250 MG Cap PO SCH (08:26)
[2018-02-27] MEDS: Sennosides 8.6 MG Tab PO SCH (08:27)
[2018-02-27] MEDS: Doxazosin 2 MG Tab PO SCH ×2 (08:27→20:16)
[2018-02-27] MEDS: Clopidogrel 75 MG Tab PO SCH (08:27)
[2018-02-27] MEDS: Metoprolol Succinate 25 MG Tab.ER PO SCH (08:27)
[2018-02-27] MEDS ORDERED: diphenhydrAMINE 50 MG Cap PO ONE (08:55)
[2018-02-27] MEDS ORDERED: methylPREDNISolone Sodium Succinate 40 MG/1 ML SDV IVPUSH ONE (09:30)
[2018-02-27] MEDS ORDERED: Famotidine 20 MG/2 ML SDV IVPUSH STA (09:30)
--- NOTE | 2018-02-27 09:45 | PCM.PN ---
<Shelley Lezama - Last Filed: 02/27/18 10:45> - General Info Date of Service: 02/27/18 Admission Dx/Problem (Free Text): Admission Diagnosis/Problem Admission Diagnosis/Problem UTI, Urinary tract infectious disease Functional Status: Reports: Pain Controlled, Tolerating Diet - Review of Systems General: Reports: No Symptoms HEENT: Reports: No Symptoms Pulmonary: Reports: No Symptoms Cardiovascular: Reports: No Symptoms Gastrointestinal: Reports: No Symptoms Genitourinary: Reports: No Symptoms Musculoskeletal: Reports: No Symptoms Skin: Reports: No Symptoms Neurological: Reports: No Symptoms Psychiatric: Reports: No Symptoms Systems Review Comment:: Patient is doing well. Slept well through the night with no new issues. He reports no pain and no symptoms. - Patient Data Vitals - Most Recent: Last Vital Signs Temp 98.4 F 02/27/18 08:00 Pulse 71 02/27/18 08:27 Resp 20 02/27/18 08:00 BP 141/88 H 02/27/18 08:27 Pulse Ox 100 02/27/18 08:00 Weight - Most Recent: 96.162 kg I&O - Last 24 Hours: Intake & Output 02/26/18 02/27/18 02/27/18 22:59 06:59 14:59 Intake Total 4406 1368 200 Output Total 394 810 Balance 4012 558 200 Lab Results Last 24 Hours: Laboratory Results - last 24 hr 02/27/18 02/27/18 Range/Units 06:09 06:09 WBC 24.09 H (4.23-9.07) K/mm3 RBC 4.60 L (4.63-6.08) M/mm3 Hgb 12.6 L (13.7-17.5) gm/L Hct 39.7 L (40.1-51.0) % MCV 86.3 (79.0-92.2) fl MCH 27.4 (25.7-32.2) pg MCHC 31.7 L (32.2-35.5) g/dl RDW Std Deviation 46.6 H (35.1-43.9) fL Plt Count 176 (163-337) K/mm3 MPV 10.6 (9.4-12.3) fl Neut % (Auto) 88.5 H (34.0-67.9) % Lymph % (Auto) 4.9 L (21.8-53.1) % [place] % (Auto) 5.1 L (5.3-12.2) % Eos % (Auto) 0.8 (0.8-7.0) Baso % (Auto) 0.1 (0.1-1.2) % Neut # (Auto) 21.29 H (1.78-5.38) K/mm3 Lymph # (Auto) 1.19 L (1.32-3.57) K/mm3 [place] # (Auto) 1.24 H (0.30-0.82) K/mm3 Eos # (Auto) 0.20 (0.04-0.54) K/mm3 Baso # (Auto) 0.03 (0.01-0.08) K/mm3 Manual Slide Review Abnormal smear Sodium 147 H (136-145) mEq/L Potassium 3.9 (3.5-5.1) mEq/L Chloride 115 H (98-107) mEq/L Carbon Dioxide 24 (21-32) mEq/L Anion Gap 11.9 (5-15) BUN 54 H (7-18) mg/dL Creatinine 1.8 H (0.7-1.3) mg/dL Est Cr Clr Drug Dosing 39.51 mL/min Estimated GFR (MDRD) 37 (>60) mL/min BUN/Creatinine Ratio 30.0 H (14-18) Glucose 97 (83-115) mg/dL Calcium 7.9 L (8.5-10.1) mg/dL Magnesium 2.2 (1.8-2.4) mg/dl C-Reactive Protein 22.4 H* (<1.0) mg/dL Heladio Results Last 24 Hours: Microbiology 02/25/18 16:40 Urine Culture - Preliminary Urine, Catheterized Escherichia Coli 02/25/18 15:29 Aerobic Blood Culture - Preliminary Blood - Venous - Lab Draw Gram Negative Rods Anaerobic Blood Culture - Preliminary Gram Negative Rods 02/25/18 15:18 Aerobic Blood Culture - Preliminary Blood - Venous Gram Negative Rods Anaerobic Blood Culture - Preliminary Gram Negative Rods Med Orders - Current: Current Medications Acetaminophen (Tylenol) 650 mg PO Q6H PRN PRN Reason: Fever Last Admin: 02/26/18 13:29 Dose: 650 mg Acetaminophen/Butalbital/Caffeine (Fioricet 325-50-40 Mg) 1 tab PO Q6H PRN PRN Reason: Headache Hydrocodone Bitart/Acetaminophen ([place] 325-5 Mg) 1 tab PO Q4H PRN PRN Reason: Pain (moderate 4-6) Al Hydroxide/Mg Hydroxide (Mag-Al Plus) 30 ml PO DAILY PRN PRN Reason: INDIGESTION Albuterol/Ipratropium (Duoneb 3.0-0.5 Mg/3 Ml) 3 ml NEB Q4H PRN PRN Reason: Shortness Of Breath/wheezing Last Admin: 02/26/18 16:17 Dose: 3 ml Bisacodyl (Dulcolax) 10 mg RECTAL DAILY PRN PRN Reason: Constipation Bisacodyl (Dulcolax) 5 mg PO DAILY PRN PRN Reason: Constipation Captopril (Capoten) 6.25 mg PO Q8H [facility] Clopidogrel Bisulfate (Plavix) 75 mg PO DAILY [facility] Last Admin: 02/27/18 08:27 Dose: 75 mg Docusate Sodium (Colace) 100 mg PO BID PRN PRN Reason: Constipation Doxazosin Mesylate (Cardura) 2 mg PO BID [facility] Last Admin: 02/27/18 08:27 Dose: 2 mg Famotidine (Pepcid) 20 mg PO BID [facility] Stop: 02/28/18 09:01 Finasteride (Proscar) 5 mg PO BEDTIME [facility] Last Admin: 02/26/18 20:14 Dose: 5 mg Furosemide (Lasix) 10 mg PO DAILY [facility] Heparin Sodium (Porcine) (Heparin Sodium) 5,000 units SUBCUT Q8H [facility] Last Admin: 02/27/18 03:20 Dose: 5,000 units Hydralazine HCl (Apresoline) 20 mg IVPUSH Q4H PRN PRN Reason: Hypertension Hydromorphone HCl (Dilaudid) 0.25 mg IVPUSH Q2H PRN PRN Reason: Pain (severe 7-10) Promethazine HCl 6.25 mg/ (Sodium Chloride) 50.25 mls @ 100 mls/hr IV Q6H PRN PRN Reason: Nausea/Vomiting Sodium Chloride (Normal Saline) 1,000 mls @ 125 mls/hr IV ASDIRECTED [facility] Last Admin: 02/27/18 01:59 Dose: 125 mls/hr Levofloxacin/Dextrose 500 mg/ (Premix) 100 mls @ 100 mls/hr IV Q24H [facility] Lorazepam (Ativan) 2 mg IVPUSH Q4H PRN PRN Reason: Seizures Lorazepam (Ativan) 1 mg IV Q6H PRN PRN Reason: Anxiety Magnesium Sulfate (Pharmacy To Dose - Magnesium Replacement) 0 dose .XX ASDIRECTED PRN PRN Reason: RX TO DOSE MAG Metoprolol Succinate (Toprol Xl) 25 mg PO DAILY [facility] Last Admin: 02/27/18 08:27 Dose: 25 mg Metoprolol Tartrate (Lopressor) 5 mg IVPUSH Q4H PRN PRN Reason: Tachycardia Nicotine (Habitrol) 21 mg TRDERM DAILY PRN PRN Reason: Nicotine Dependence Ondansetron HCl (Zofran) 4 mg IV Q6H PRN PRN Reason: Nausea/Vomiting Polyethylene Glycol (Miralax) 17 gm PO DAILY PRN PRN Reason: Constipation Potassium Chloride (Pharmacy To Dose - Potassium Replacement) 0 dose .XX ASDIRECTED PRN PRN Reason: RX TO DOSE K Saccharomyces Boulardii (Florastor) 250 mg PO DAILY [facility] Last Admin: 02/27/18 08:26 Dose: 250 mg Senna (Senna) 17.2 mg PO DAILY [facility] Last Admin: 02/27/18 08:27 Dose: Not Given Senna (Senna) 17.2 mg PO DAILY PRN PRN Reason: Constipation Senna/Docusate Sodium (Senna Plus) 1 tab PO BID PRN PRN Reason: Constipation Simvastatin (Zocor) 10 mg PO BEDTIME [facility] Last Admin: 02/26/18 20:14 Dose: 10 mg Tamsulosin HCl (Flomax) 0.4 mg PO BID [facility] Last Admin: 02/27/18 08:26 Dose: 0.4 mg Trazodone HCl (Trazodone) 25 mg PO BEDTIME [facility] Last Admin: 02/26/18 20:14 Dose: 25 mg Discontinued Medications Acetaminophen (Tylenol) 650 mg RECTAL NOW ONE Stop: 02/25/18 14:59 Last Admin: 02/25/18 15:11 Dose: 650 mg Albuterol/Ipratropium (Duoneb 3.0-0.5 Mg/3 Ml) 3 ml NEB ONETIME ONE Stop: 02/25/18 15:27 Last Admin: 02/25/18 15:28 Dose: 3 ml Captopril (Capoten) 6.25 mg PO Q8H [facility] Diphenhydramine HCl (Benadryl) 50 mg PO ONETIME ONE Stop: 02/27/18 08:56 Last Admin: 02/27/18 08:54 Dose: 50 mg Famotidine (Pepcid) 20 mg IVPUSH ONETIME STA Stop: 02/27/18 09:31 Furosemide (Lasix) 10 mg PO DAILY [facility] Hydromorphone HCl (Dilaudid) 0.25 mg IVPUSH Q2H PRN PRN Reason: Pain (severe 7-10) Sodium Chloride (Normal Saline) 1,000 mls @ 1,000 mls/hr IV ONETIME ONE Stop: 02/25/18 16:18 Last Admin: 02/25/18 16:10 Dose: Not Given Sodium Chloride (Normal Saline) 1,000 mls @ 999 mls/hr IV ONETIME ONE Stop: 02/25/18 16:36 Last Admin: 02/25/18 15:43 Dose: 999 mls/hr Sodium Chloride (Normal Saline) 1,000 mls @ 999 mls/hr IV ONETIME ONE Stop: 02/25/18 17:53 Last Admin: 02/25/18 16:55 Dose: 999 mls/hr Ceftriaxone Sodium 2 gm/ (Sodium Chloride) 100 mls @ 100 mls/hr IV ONETIME ONE Stop: 02/25/18 18:17 Last Admin: 02/25/18 18:05 Dose: 100 mls/hr Sodium Chloride (Normal Saline) 1,000 mls @ 999 mls/hr IV ONETIME ONE Stop: 02/25/18 19:05 Last Admin: 02/25/18 17:55 Dose: 999 mls/hr Sodium Chloride (Normal Saline) 1,000 mls @ 150 mls/hr IV ASDIRECTED [facility] Last Admin: 02/26/18 02:47 Dose: 150 mls/hr Sodium Chloride (Normal Saline) 1,000 mls @ 150 mls/hr IV ASDIRECTED [facility] Last Admin: 02/25/18 21:00 Dose: 150 mls/hr Ceftriaxone Sodium 1 gm/ (Sodium Chloride) 100 mls @ 200 mls/hr IV Q24H [facility] Last Admin: 02/26/18 08:35 Dose: 200 mls/hr Levofloxacin/Dextrose 500 mg/ (Premix) 100 mls @ 100 mls/hr IV ONETIME ONE Stop: 02/26/18 16:29 Last Admin: 02/26/18 15:26 Dose: 100 mls/hr Piperacillin Sod/Tazobactam (Sod 4.5 gm/ Sodium Chloride) 100 mls @ 200 mls/hr IV ONETIME ONE Stop: 02/26/18 15:29 Last Admin: 02/26/18 15:27 Dose: 200 mls/hr Piperacillin Sod/Tazobactam (Sod 4.5 gm/ Sodium Chloride) 100 mls @ 25 mls/hr IV Q8H [facility] Last Admin: 02/27/18 06:05 Dose: 25 mls/hr Methylprednisolone Sodium Succinate (Solu-Medrol) 40 mg IVPUSH ONETIME ONE Stop: 02/27/18 09:31 Pantoprazole Sodium (Protonix Iv) 80 mg IVPUSH .BOLUS ONE Stop: 02/25/18 17:58 Last Admin: 02/25/18 18:15 Dose: 80 mg Tamsulosin HCl (Flomax) 0.8 mg PO BID [facility] - Exam Quality Assessment: Supplemental Oxygen, Urine Catheter, DVT Prophylaxis General: Alert, Cooperative, No Acute Distress HEENT: Pupils Equal, Pupils Reactive, EOMI, Mucous Membr. Moist/[place] Neck: Supple, Trachea Midline Lungs: Clear to Auscultation, Normal Respiratory Effort Cardiovascular: Regular Rate, Regular Rhythm GI/Abdominal Exam: Normal Bowel Sounds, Soft, Non-Tender, No Distention (Male) Exam: Deferred Extremities: Normal Inspection, Non-Tender, No Pedal Edema Peripheral Pulses: 2+: Radial (L), Radial (R), Posterior Tibial (L), Posterior Tibial (R) Skin: Warm, Dry, Intact, Other (rash groin) Neurological: No New Focal Deficit, Other (hx of CVA; speech deficit) Psy/Mental Status: Alert, Normal Affect, Normal Mood Physical Findings Comments:: Patient appears to be doing well today. He is alert and sitting up in his chair. He does not communicate other than nodding, hand gestures, responding yes /no. He has a urinary catheter and supplemental oxygen. Rash is still present in groin region. He also developed a rash on his trunk, arms, and legs after recieving last rocephin dose - this is now completely resolved. No other abnormalities found upon exam. - Problem List & Annotations (1) Sepsis SNOMED Code(s): 52270337 Code(s): A41.9 - SEPSIS, UNSPECIFIED ORGANISM Status: Acute Current Visit : Yes Qualifiers: Sepsis type: sepsis due to unspecified organism Qualified Code(s): A41.9 - Sepsis, unspecified organism (2) UTI (urinary tract infection) SNOMED Code(s): 39478765 Code(s): N39.0 - URINARY TRACT INFECTION, SITE NOT SPECIFIED Status: Acute Current Visit: Yes Qualifiers: Urinary tract infection type: site unspecified Hematuria presence: without hematuria Qualified Code(s): N39.0 - Urinary tract infection, site not specified - Problem List Review Problem List Initiated/Reviewed/Updated: Yes - Plan Plan:: Acute: AMS, Improving * 2/2 Metabolic Encephalopathy * Head CT scan showed no acute abnormal findings * UA is strongly suggestive of UTI * He seems to be more responsive - saw speech therapy today Bacteremia w/ Hypotension, Improved * 2/2 UTI * Vitals on admission: RR of 40, Hypoxic 88% on RA, Tachycardic with HR of 122, Febrile with a Temp as high as 39.9 C, and Hypotension of 97/60 mmHg * Today: RR 20; O2 100%; HR 71; temp 37.2; BP 141/88 * LA 3.5 --> 1.7 * WBC normal on admission; 33.27 yesterday --> 24.09 today * IV hydration has been successful * Blood culture grew gram negative rods - repeat blood culture this afternoon after 1500 * Developed rash on trunk, arms, and legs after dose of zosyn this AM - given benadryl, famotodine, and steroids; continue levaquin UTI * Risk factors: Urinary Retention, Immobility, Incontinence, Wears Pads, Hygiene Issues * Skin irritation and in the groin; smegma around his penis; foul smell * Urine culture grew gram negative rods - E. coli, rhodes-sensitive Non-Oliguric Renal Failure, Slowly improving * Risk factors: Urinary Retention, Immobility, Obstructive Uropathy, Hx/o CVA and BPH * Only on flomax daily--> changed to BID * Currently hydrating * Hold ACEI and Lasix * Paz catheter to monitor Is/Os * Avoid Nephrotic Agent * Renal U/S was benign * BUN/Cr ratio 30 * GFR 24 --> 37 Severe Urinary Retention * 2/2 Obstructive and Reflux Uropathy * Prostate is enlarged but smooth * Change Flomax 0.4 mg po to BID, and add Finasteride 5 mg po HS and Doxazosin 2 mg po BID Skin Breakdown * Redness and Irritation on his groin and intergluteal cleft * Risk factors: incontinence and wears pad * Skin breakdown protocol Resolved: S/p Dehydration * 2/2 Intravascular Volume Depletion * Skin turgor is delayed and oral membranes are dry * IV hydration * Monitor Is/Os Chronic: Impaired Hearing (Sens[place]-neural hearing loss) 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 Dr. Burroughs has examined the patient and reviewed the note. <Balbir Burroughs T - Last Filed: 02/27/18 13:26> - Patient Data Vitals - Most Recent: Last Vital Signs Temp 36.9 C 02/27/18 08:00 Pulse 71 02/27/18 08:27 Resp 20 02/27/18 08:00 BP 141/88 H 02/27/18 08:27 Pulse Ox 100 02/27/18 08:00 I&O - Last 24 Hours: Intake & Output 02/26/18 02/27/18 02/27/18 22:59 06:59 14:59 Intake Total 4406 1368 2480 Output Total 394 810 400 Balance 4012 558 2080 Lab Results Last 24 Hours: Laboratory Results - last 24 hr 02/27/18 02/27/18 Range/Units 06:09 06:09 WBC 24.09 H (4.23-9.07) K/mm3 RBC 4.60 L (4.63-6.08) M/mm3 Hgb 12.6 L (13.7-17.5) gm/L Hct 39.7 L (40.1-51.0) % MCV 86.3 (79.0-92.2) fl MCH 27.4 (25.7-32.2) pg MCHC 31.7 L (32.2-35.5) g/dl RDW Std Deviation 46.6 H (35.1-43.9) fL Plt Count 176 (163-337) K/mm3 MPV 10.6 (9.4-12.3) fl Neut % (Auto) 88.5 H (34.0-67.9) % Lymph % (Auto) 4.9 L (21.8-53.1) % [place] % (Auto) 5.1 L (5.3-12.2) % Eos % (Auto) 0.8 (0.8-7.0) Baso % (Auto) 0.1 (0.1-1.2) % Neut # (Auto) 21.29 H (1.78-5.38) K/mm3 Lymph # (Auto) 1.19 L (1.32-3.57) K/mm3 [place] # (Auto) 1.24 H (0.30-0.82) K/mm3 Eos # (Auto) 0.20 (0.04-0.54) K/mm3 Baso # (Auto) 0.03 (0.01-0.08) K/mm3 Manual Slide Review Abnormal smear Sodium 147 H (136-145) mEq/L Potassium 3.9 (3.5-5.1) mEq/L Chloride 115 H (98-107) mEq/L Carbon Dioxide 24 (21-32) mEq/L Anion Gap 11.9 (5-15) BUN 54 H (7-18) mg/dL Creatinine 1.8 H (0.7-1.3) mg/dL Est Cr Clr Drug Dosing 39.51 mL/min Estimated GFR (MDRD) 37 (>60) mL/min BUN/Creatinine Ratio 30.0 H (14-18) Glucose 97 (83-115) mg/dL Calcium 7.9 L (8.5-10.1) mg/dL Magnesium 2.2 (1.8-2.4) mg/dl C-Reactive Protein 22.4 H* (<1.0) mg/dL Heladio Results Last 24 Hours: Microbiology 02/25/18 16:40 Urine Culture - Preliminary Urine, Catheterized Escherichia Coli Med Orders - Current: Current Medications Acetaminophen (Tylenol) 650 mg PO Q6H PRN PRN Reason: Fever Last Admin: 02/26/18 13:29 Dose: 650 mg Acetaminophen/Butalbital/Caffeine (Fioricet 325-50-40 Mg) 1 tab PO Q6H PRN PRN Reason: Headache Hydrocodone Bitart/Acetaminophen ([place] 325-5 Mg) 1 tab PO Q4H PRN PRN Reason: Pain (moderate 4-6) Al Hydroxide/Mg Hydroxide (Mag-Al Plus) 30 ml PO DAILY PRN PRN Reason: INDIGESTION Albuterol/Ipratropium (Duoneb 3.0-0.5 Mg/3 Ml) 3 ml NEB Q4H PRN PRN Reason: Shortness Of Breath/wheezing Last Admin: 02/26/18 16:17 Dose: 3 ml Bisacodyl (Dulcolax) 10 mg RECTAL DAILY PRN PRN Reason: Constipation Bisacodyl (Dulcolax) 5 mg PO DAILY PRN PRN Reason: Constipation Captopril (Capoten) 6.25 mg PO Q8H [facility] Clopidogrel Bisulfate (Plavix) 75 mg PO DAILY [facility] Last Admin: 02/27/18 08:27 Dose: 75 mg Docusate Sodium (Colace) 100 mg PO BID PRN PRN Reason: Constipation Doxazosin Mesylate (Cardura) 2 mg PO BID [facility] Last Admin: 02/27/18 08:27 Dose: 2 mg Famotidine (Pepcid) 20 mg PO BID [facility] Stop: 02/28/18 09:01 Finasteride (Proscar) 5 mg PO BEDTIME [facility] Last Admin: 02/26/18 20:14 Dose: 5 mg Furosemide (Lasix) 10 mg PO DAILY [facility] Heparin Sodium (Porcine) (Heparin Sodium) 5,000 units SUBCUT Q8H [facility] Last Admin: 02/27/18 10:31 Dose: 5,000 units Hydralazine HCl (Apresoline) 20 mg IVPUSH Q4H PRN PRN Reason: Hypertension Hydromorphone HCl (Dilaudid) 0.25 mg IVPUSH Q2H PRN PRN Reason: Pain (severe 7-10) Promethazine HCl 6.25 mg/ (Sodium Chloride) 50.25 mls @ 100 mls/hr IV Q6H PRN PRN Reason: Nausea/Vomiting Sodium Chloride (Normal Saline) 1,000 mls @ 125 mls/hr IV ASDIRECTED [facility] Last Admin: 02/27/18 10:25 Dose: 125 mls/hr Levofloxacin/Dextrose 500 mg/ (Premix) 100 mls @ 100 mls/hr IV Q24H [facility] Lorazepam (Ativan) 2 mg IVPUSH Q4H PRN PRN Reason: Seizures Lorazepam (Ativan) 1 mg IV Q6H PRN PRN Reason: Anxiety Magnesium Sulfate (Pharmacy To Dose - Magnesium Replacement) 0 dose .XX ASDIRECTED PRN PRN Reason: RX TO DOSE MAG Metoprolol Succinate (Toprol Xl) 25 mg PO DAILY [facility] Last Admin: 02/27/18 08:27 Dose: 25 mg Metoprolol Tartrate (Lopressor) 5 mg IVPUSH Q4H PRN PRN Reason: Tachycardia Nicotine (Habitrol) 21 mg TRDERM DAILY PRN PRN Reason: Nicotine Dependence Ondansetron HCl (Zofran) 4 mg IV Q6H PRN PRN Reason: Nausea/Vomiting Polyethylene Glycol (Miralax) 17 gm PO DAILY PRN PRN Reason: Constipation Potassium Chloride (Pharmacy To Dose - Potassium Replacement) 0 dose .XX ASDIRECTED PRN PRN Reason: RX TO DOSE K Saccharomyces Boulardii (Florastor) 250 mg PO DAILY [facility] Last Admin: 02/27/18 08:26 Dose: 250 mg Senna (Senna) 17.2 mg PO DAILY [facility] Last Admin: 02/27/18 08:27 Dose: Not Given Senna (Senna) 17.2 mg PO DAILY PRN PRN Reason: Constipation Senna/Docusate Sodium ([place] Plus) 1 tab PO BID PRN PRN Reason: Constipation Simvastatin (Zocor) 10 mg PO BEDTIME [facility] Last Admin: 02/26/18 20:14 Dose: 10 mg Tamsulosin HCl (Flomax) 0.4 mg PO BID [facility] Last Admin: 02/27/18 08:26 Dose: 0.4 mg Trazodone HCl (Trazodone) 25 mg PO BEDTIME [facility] Last Admin: 02/26/18 20:14 Dose: 25 mg Discontinued Medications Acetaminophen (Tylenol) 650 mg RECTAL NOW ONE Stop: 02/25/18 14:59 Last Admin: 02/25/18 15:11 Dose: 650 mg Albuterol/Ipratropium (Duoneb 3.0-0.5 Mg/3 Ml) 3 ml NEB ONETIME ONE Stop: 02/25/18 15:27 Last Admin: 02/25/18 15:28 Dose: 3 ml Captopril (Capoten) 6.25 mg PO Q8H [facility] Diphenhydramine HCl (Benadryl) 50 mg PO ONETIME ONE Stop: 02/27/18 08:56 Last Admin: 02/27/18 08:54 Dose: 50 mg Famotidine (Pepcid) 20 mg IVPUSH ONETIME [facility] Stop: 02/27/18 09:31 Last Admin: 02/27/18 09:52 Dose: 20 mg Furosemide (Lasix) 10 mg PO DAILY [facility] Hydromorphone HCl (Dilaudid) 0.25 mg IVPUSH Q2H PRN PRN Reason: Pain (severe 7-10) Sodium Chloride (Normal Saline) 1,000 mls @ 1,000 mls/hr IV ONETIME ONE Stop: 02/25/18 16:18 Last Admin: 02/25/18 16:10 Dose: Not Given Sodium Chloride (Normal Saline) 1,000 mls @ 999 mls/hr IV ONETIME ONE Stop: 02/25/18 16:36 Last Admin: 02/25/18 15:43 Dose: 999 mls/hr Sodium Chloride (Normal Saline) 1,000 mls @ 999 mls/hr IV ONETIME ONE Stop: 02/25/18 17:53 Last Admin: 02/25/18 16:55 Dose: 999 mls/hr Ceftriaxone Sodium 2 gm/ (Sodium Chloride) 100 mls @ 100 mls/hr IV ONETIME ONE Stop: 02/25/18 18:17 Last Admin: 02/25/18 18:05 Dose: 100 mls/hr Sodium Chloride (Normal Saline) 1,000 mls @ 999 mls/hr IV ONETIME ONE Stop: 02/25/18 19:05 Last Admin: 02/25/18 17:55 Dose: 999 mls/hr Sodium Chloride (Normal Saline) 1,000 mls @ 150 mls/hr IV ASDIRECTED [facility] Last Admin: 02/26/18 02:47 Dose: 150 mls/hr Sodium Chloride (Normal Saline) 1,000 mls @ 150 mls/hr IV ASDIRECTED [facility] Last Admin: 02/25/18 21:00 Dose: 150 mls/hr Ceftriaxone Sodium 1 gm/ (Sodium Chloride) 100 mls @ 200 mls/hr IV Q24H [facility] Last Admin: 02/26/18 08:35 Dose: 200 mls/hr Levofloxacin/Dextrose 500 mg/ (Premix) 100 mls @ 100 mls/hr IV ONETIME ONE Stop: 02/26/18 16:29 Last Admin: 02/26/18 15:26 Dose: 100 mls/hr Piperacillin Sod/Tazobactam (Sod 4.5 gm/ Sodium Chloride) 100 mls @ 200 mls/hr IV ONETIME ONE Stop: 02/26/18 15:29 Last Admin: 02/26/18 15:27 Dose: 200 mls/hr Piperacillin Sod/Tazobactam (Sod 4.5 gm/ Sodium Chloride) 100 mls @ 25 mls/hr IV Q8H [facility] Last Admin: 02/27/18 06:05 Dose: 25 mls/hr Methylprednisolone Sodium Succinate (Solu-Medrol) 40 mg IVPUSH ONETIME ONE Stop: 02/27/18 09:31 Last Admin: 02/27/18 09:51 Dose: 40 mg Pantoprazole Sodium (Protonix Iv) 80 mg IVPUSH .BOLUS ONE Stop: 02/25/18 17:58 Last Admin: 02/25/18 18:15 Dose: 80 mg Tamsulosin HCl (Flomax) 0.8 mg PO BID [facility] - My Orders Last 24 Hours: My Active Orders 02/26/18 12:48 Acetaminophen [Tylenol] 650 mg PO Q6H PRN 02/26/18 17:46 Consult to Speech Language Pathology [MACHINE BUILDER Evaluation and Treatment] [CONS] Routine 02/27/18 10:33 Patient Status [ADT] Routine 02/27/18 15:00 CULTURE BLOOD [BC] Routine CULTURE BLOOD [BC] Routine Blood Culture x2 Reflex Set [OM.PC] PER UNIT ROUTINE 02/27/18 15:30 Levofloxacin/Dextrose 5%-Water [Levaquin in D5W 500 MG/100 ML] 500 mg Premix Bag 1 bag IV Q24H 02/27/18 21:00 Famotidine [Pepcid] 20 mg PO BID 02/28/18 05:11 BASIC METABOLIC PANEL,BMP [CHEM] AM C-REACTIVE PROTEIN [CHEM] AM CBC WITH AUTO DIFF [HEME] AM MAGNESIUM [CHEM] AM 02/28/18 09:00 Captopril [Capoten] 6.25 mg PO Q8H Furosemide [Lasix] 10 mg PO DAILY 03/01/18 05:11 BASIC METABOLIC PANEL,BMP [CHEM] AM C-REACTIVE PROTEIN [CHEM] AM CBC WITH AUTO DIFF [HEME] AM MAGNESIUM [CHEM] AM 03/02/18 05:11 BASIC METABOLIC PANEL,BMP [CHEM] AM C-REACTIVE PROTEIN [CHEM] AM CBC WITH AUTO DIFF [HEME] AM MAGNESIUM [CHEM] AM - Plan Plan:: The patient was seen and examined at bedside in concert with the medical student. The assessment and plans were discussed and agreed upon with me. No overnight issues. His pressures have been better. However developed skin rash this morning and received oral benadryl. He reports no complaints. Assessment/Plan: Acute: Bacteremia w/o Hypotension * 2/2 UTI * Vitals on admission: RR of 40, Hypoxic 88% on RA, Tachycardic with HR of 122, Febrile with a Temp as high as 39.9 C, and Hypotension of 97/60 mmHg * Today: RR 20; O2 100%; HR 71; temp 37.2; BP 141/88 * LA 3.5 --> 1.7 * WBC normal on admission; 33.27 yesterday --> 24.09 today * IV hydration has been successful * Blood culture grew gram negative rods - repeat blood culture this afternoon after 1500 * Continue IV Levaquin Hypersensitivity Reaction * Developed rash on trunk, arms, and legs after dose of zosyn this AM * Given benadryl, famotodine, and steroids * Will flag Zosyn as part of his ADR/Allergies UTI 2/2 E. coli * Risk factors: Urinary Retention, Immobility, Incontinence, Wears Pads, Hygiene Issues * Skin irritation and in the groin; smegma around his penis; foul smell * Urine culture grew gram negative rods - E. coli, rhodes-sensitive Non-Oliguric Renal Failure, Continue to Improve * Risk factors: Urinary Retention, Immobility, Obstructive Uropathy, Hx/o CVA and BPH * Only on flomax daily--> changed to BID * Currently hydrating * Hold ACEI and Lasix * Paz catheter to monitor Is/Os * Continue to Avoid Nephrotic Agent * Renal U/S was benign * BUN/Cr ratio 30; Cr 2.8 --> now 1.8 * GFR 24 --> now 37 Severe Urinary Retention, Stable * 2/2 Obstructive and Reflux Uropathy * Prostate is enlarged but smooth * Change Flomax 0.4 mg po to BID, and add Finasteride 5 mg po HS and Doxazosin 2 mg po BID * Will clamp his paz cath and measure residual urine; we might be able to d/c his paz catheter Skin Breakdown * Redness and Irritation on his groin and intergluteal cleft * Risk factors: incontinence and wears pad * Skin breakdown protocol Resolved: S/p Dehydration * 2/2 Intravascular Volume Depletion * Skin turgor is delayed and oral membranes are dry * IV hydration * Monitor Is/Os S/p AMS, At baseline * 2/2 Metabolic Encephalopathy * Head CT scan showed no acute abnormal findings * UA is strongly suggestive of UTI * He seems to be more responsive - saw speech therapy today Chronic: Impaired Hearing (Sensori-neural hearing loss) Impaired Speech/Dysphonia 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 No family members present at bedside.
[2018-02-27] MEDS: hydrALAZINE 20 MG/ML SDV IVPUSH PRN (14:50)
[2018-02-27] MEDS ORDERED: Levofloxacin/Dextrose 5%-Water 500 MG in Premix Bag 1 BAG IV SCH (15:30)
[2018-02-27] MEDS: Simvastatin 10 MG Tab PO SCH (20:16)
[2018-02-27] MEDS: Famotidine 20 MG Tab PO SCH (20:16)
[2018-02-27] MEDS: traZODone 50 MG Tab PO SCH (20:17)
[2018-02-27] MEDS: Finasteride 5 MG Tab PO SCH (20:17)
[2018-02-28] MEDS: Sodium Chloride 0.9% 1,000 ML IV SCH ×3 (02:58→19:35)
[2018-02-28] MEDS: Heparin Sodium 5,000 Units/ML Vial SUBCUT SCH ×3 (03:36→19:36)
[2018-02-28] MEDS: Tamsulosin 0.4 MG Cap.ER PO SCH ×2 (09:15→20:08)
[2018-02-28] MEDS: Saccharomyces Boulardii (Probiotic) 250 MG Cap PO SCH (09:15)
[2018-02-28] MEDS: Doxazosin 2 MG Tab PO SCH ×2 (09:15→20:09)
[2018-02-28] MEDS: Clopidogrel 75 MG Tab PO SCH (09:15)
[2018-02-28] MEDS: Furosemide 20 MG Tab PO SCH (09:16)
[2018-02-28] MEDS: Metoprolol Succinate 25 MG Tab.ER PO SCH (09:16)
[2018-02-28] MEDS: Famotidine 20 MG Tab PO SCH (09:16)
[2018-02-28] MEDS: Sennosides 8.6 MG Tab PO SCH (09:26)
[2018-02-28] MEDS: hydrALAZINE 20 MG/ML SDV IVPUSH PRN (11:27)
--- NOTE | 2018-02-28 11:33 | PCM.PN ---
- General Info Date of Service: 02/28/18 Admission Dx/Problem (Free Text): Admission Diagnosis/Problem Admission Diagnosis/Problem UTI, Urinary tract infectious disease Subjective Update: Follow Up Functional Status: Reports: Pain Controlled, Tolerating Diet, Ambulating, Urinating. Denies: New Symptoms - Review of Systems General: Denies: Fever, Weakness, Fatigue, Malaise, Chills HEENT: Reports: No Symptoms Pulmonary: Denies: Shortness of Breath Cardiovascular: Denies: Chest Pain, Dyspnea on Exertion, Lightheadedness Gastrointestinal: Denies: Abdominal Pain, Nausea, Vomiting Genitourinary: Reports: No Symptoms Musculoskeletal: Reports: No Symptoms Skin: Denies: Cyanosis, Mottled, Pallor, Diaphoresis, Bruising Neurological: Reports: Gait Disturbance. Denies: Confusion, Difficulty Walking , Weakness Psychiatric: Denies: Depression, Anxiety, Agitation, Hallucinations Systems Review Comment:: No overnight or acute issues. He rested well last night. He has no acute issues. He remains afebrile and his WBC is now down to 20.11. His CRP is now at 10.1 - Patient Data Vitals - Most Recent: Last Vital Signs Temp 36.6 C 02/28/18 11:24 Pulse 68 02/28/18 11:24 Resp 20 02/28/18 11:24 BP 168/91 H 02/28/18 11:24 Pulse Ox 98 02/28/18 11:24 Weight - Most Recent: 94.982 kg I&O - Last 24 Hours: Intake & Output 02/27/18 02/28/18 02/28/18 22:59 06:59 14:59 Intake Total 1000 1790 120 Output Total 950 650 Balance 50 1140 120 Lab Results Last 24 Hours: Laboratory Results - last 24 hr 02/28/18 02/28/18 Range/Units 06:18 06:18 WBC 20.11 H (4.23-9.07) K/mm3 RBC 4.62 L (4.63-6.08) M/mm3 Hgb 12.7 L (13.7-17.5) gm/L Hct 39.4 L (40.1-51.0) % MCV 85.3 (79.0-92.2) fl MCH 27.5 (25.7-32.2) pg MCHC 32.2 (32.2-35.5) g/dl RDW Std Deviation 44.7 H (35.1-43.9) fL Plt Count 181 (163-337) K/mm3 MPV 10.6 (9.4-12.3) fl Neut % (Auto) 88.1 H (34.0-67.9) % Lymph % (Auto) 6.7 L (21.8-53.1) % [place] % (Auto) 4.7 L (5.3-12.2) % Eos % (Auto) 0.2 L (0.8-7.0) Baso % (Auto) 0.0 L (0.1-1.2) % Neut # (Auto) 17.72 H (1.78-5.38) K/mm3 Lymph # (Auto) 1.34 (1.32-3.57) K/mm3 [place] # (Auto) 0.94 H (0.30-0.82) K/mm3 Eos # (Auto) 0.04 (0.04-0.54) K/mm3 Baso # (Auto) 0.01 (0.01-0.08) K/mm3 Manual Slide Review Abnormal smear Sodium 145 (136-145) mEq/L Potassium 4.0 (3.5-5.1) mEq/L Chloride 114 H (98-107) mEq/L Carbon Dioxide 23 (21-32) mEq/L Anion Gap 12.0 (5-15) BUN 41 H (7-18) mg/dL Creatinine 1.3 (0.7-1.3) mg/dL Est Cr Clr Drug Dosing 54.48 mL/min Estimated GFR (MDRD) 54 (>60) mL/min BUN/Creatinine Ratio 31.5 H (14-18) Glucose 102 (83-115) mg/dL Calcium 8.2 L (8.5-10.1) mg/dL Magnesium 2.0 (1.8-2.4) mg/dl C-Reactive Protein 10.1 H* (<1.0) mg/dL Heladio Results Last 24 Hours: Microbiology 02/25/18 16:40 Urine Culture - Preliminary Urine, Catheterized Escherichia Coli Gram Positive Cocci 02/27/18 16:05 Anaerobic Blood Culture - Final Blood - Venous - Lab Draw 02/25/18 15:29 Aerobic Blood Culture - Final Blood - Venous - Lab Draw Escherichia Coli Anaerobic Blood Culture - Preliminary Escherichia Coli 02/25/18 15:18 Aerobic Blood Culture - Final Blood - Venous Escherichia Coli Anaerobic Blood Culture - Preliminary Escherichia Coli Med Orders - Current: Current Medications Acetaminophen (Tylenol) 650 mg PO Q6H PRN PRN Reason: Fever Last Admin: 02/26/18 13:29 Dose: 650 mg Acetaminophen/Butalbital/Caffeine (Fioricet 325-50-40 Mg) 1 tab PO Q6H PRN PRN Reason: Headache Hydrocodone Bitart/Acetaminophen ([place] 325-5 Mg) 1 tab PO Q4H PRN PRN Reason: Pain (moderate 4-6) Al Hydroxide/Mg Hydroxide (Mag-Al Plus) 30 ml PO DAILY PRN PRN Reason: INDIGESTION Albuterol/Ipratropium (Duoneb 3.0-0.5 Mg/3 Ml) 3 ml NEB Q4H PRN PRN Reason: Shortness Of Breath/wheezing Last Admin: 02/26/18 16:17 Dose: 3 ml Bisacodyl (Dulcolax) 10 mg RECTAL DAILY PRN PRN Reason: Constipation Bisacodyl (Dulcolax) 5 mg PO DAILY PRN PRN Reason: Constipation Captopril (Capoten) 6.25 mg PO Q8H [facility] Last Admin: 02/28/18 09:17 Dose: 6.25 mg Clopidogrel Bisulfate (Plavix) 75 mg PO DAILY [facility] Last Admin: 02/28/18 09:15 Dose: 75 mg Docusate Sodium (Colace) 100 mg PO BID PRN PRN Reason: Constipation Doxazosin Mesylate (Cardura) 2 mg PO BID [facility] Last Admin: 02/28/18 09:15 Dose: 2 mg Finasteride (Proscar) 5 mg PO BEDTIME [facility] Last Admin: 02/27/18 20:17 Dose: 5 mg Furosemide (Lasix) 10 mg PO DAILY [facility] Last Admin: 02/28/18 09:16 Dose: 10 mg Heparin Sodium (Porcine) (Heparin Sodium) 5,000 units SUBCUT Q8H [facility] Last Admin: 02/28/18 11:05 Dose: 5,000 units Hydralazine HCl (Apresoline) 20 mg IVPUSH Q4H PRN PRN Reason: Hypertension Last Admin: 02/28/18 11:27 Dose: 20 mg Hydromorphone HCl (Dilaudid) 0.25 mg IVPUSH Q2H PRN PRN Reason: Pain (severe 7-10) Promethazine HCl 6.25 mg/ (Sodium Chloride) 50.25 mls @ 100 mls/hr IV Q6H PRN PRN Reason: Nausea/Vomiting Sodium Chloride (Normal Saline) 1,000 mls @ 125 mls/hr IV ASDIRECTED [facility] Last Admin: 02/28/18 11:04 Dose: 125 mls/hr Levofloxacin/Dextrose 750 mg/ (Premix) 150 mls @ 150 mls/hr IV Q24H [facility] Lorazepam (Ativan) 2 mg IVPUSH Q4H PRN PRN Reason: Seizures Lorazepam (Ativan) 1 mg IV Q6H PRN PRN Reason: Anxiety Magnesium Sulfate (Pharmacy To Dose - Magnesium Replacement) 0 dose .XX ASDIRECTED PRN PRN Reason: RX TO DOSE MAG Metoprolol Succinate (Toprol Xl) 25 mg PO DAILY [facility] Last Admin: 02/28/18 09:16 Dose: 25 mg Metoprolol Tartrate (Lopressor) 5 mg IVPUSH Q4H PRN PRN Reason: Tachycardia Nicotine (Habitrol) 21 mg TRDERM DAILY PRN PRN Reason: Nicotine Dependence Nystatin (Nystop) 0 gm TOP TID [facility] Ondansetron HCl (Zofran) 4 mg IV Q6H PRN PRN Reason: Nausea/Vomiting Polyethylene Glycol (Miralax) 17 gm PO DAILY PRN PRN Reason: Constipation Potassium Chloride (Pharmacy To Dose - Potassium Replacement) 0 dose .XX ASDIRECTED PRN PRN Reason: RX TO DOSE K Saccharomyces Boulardii (Florastor) 250 mg PO DAILY [facility] Last Admin: 02/28/18 09:15 Dose: 250 mg Senna (Senna) 17.2 mg PO DAILY [facility] Last Admin: 02/28/18 09:26 Dose: 17.2 mg Senna (Senna) 17.2 mg PO DAILY PRN PRN Reason: Constipation Senna/Docusate Sodium (Senna Plus) 1 tab PO BID PRN PRN Reason: Constipation Simvastatin (Zocor) 10 mg PO BEDTIME [facility] Last Admin: 02/27/18 20:16 Dose: 10 mg Tamsulosin HCl (Flomax) 0.4 mg PO BID [facility] Last Admin: 02/28/18 09:15 Dose: 0.4 mg Trazodone HCl (Trazodone) 25 mg PO BEDTIME [facility] Last Admin: 02/27/18 20:17 Dose: 25 mg Discontinued Medications Acetaminophen (Tylenol) 650 mg RECTAL NOW ONE Stop: 02/25/18 14:59 Last Admin: 02/25/18 15:11 Dose: 650 mg Albuterol/Ipratropium (Duoneb 3.0-0.5 Mg/3 Ml) 3 ml NEB ONETIME ONE Stop: 02/25/18 15:27 Last Admin: 02/25/18 15:28 Dose: 3 ml Captopril (Capoten) 6.25 mg PO Q8H [facility] Diphenhydramine HCl (Benadryl) 50 mg PO ONETIME ONE Stop: 02/27/18 08:56 Last Admin: 02/27/18 08:54 Dose: 50 mg Famotidine (Pepcid) 20 mg IVPUSH ONETIME STA Stop: 02/27/18 09:31 Last Admin: 02/27/18 09:52 Dose: 20 mg Famotidine (Pepcid) 20 mg PO BID [facility] Stop: 02/28/18 09:01 Last Admin: 02/28/18 09:16 Dose: 20 mg Furosemide (Lasix) 10 mg PO DAILY [facility] Hydromorphone HCl (Dilaudid) 0.25 mg IVPUSH Q2H PRN PRN Reason: Pain (severe 7-10) Sodium Chloride (Normal Saline) 1,000 mls @ 1,000 mls/hr IV ONETIME ONE Stop: 02/25/18 16:18 Last Admin: 02/25/18 16:10 Dose: Not Given Sodium Chloride (Normal Saline) 1,000 mls @ 999 mls/hr IV ONETIME ONE Stop: 02/25/18 16:36 Last Admin: 02/25/18 15:43 Dose: 999 mls/hr Sodium Chloride (Normal Saline) 1,000 mls @ 999 mls/hr IV ONETIME ONE Stop: 02/25/18 17:53 Last Admin: 02/25/18 16:55 Dose: 999 mls/hr Ceftriaxone Sodium 2 gm/ (Sodium Chloride) 100 mls @ 100 mls/hr IV ONETIME ONE Stop: 02/25/18 18:17 Last Admin: 02/25/18 18:05 Dose: 100 mls/hr Sodium Chloride (Normal Saline) 1,000 mls @ 999 mls/hr IV ONETIME ONE Stop: 02/25/18 19:05 Last Admin: 02/25/18 17:55 Dose: 999 mls/hr Sodium Chloride (Normal Saline) 1,000 mls @ 150 mls/hr IV ASDIRECTED [facility] Last Admin: 02/26/18 02:47 Dose: 150 mls/hr Sodium Chloride (Normal Saline) 1,000 mls @ 150 mls/hr IV ASDIRECTED [facility] Last Admin: 02/25/18 21:00 Dose: 150 mls/hr Ceftriaxone Sodium 1 gm/ (Sodium Chloride) 100 mls @ 200 mls/hr IV Q24H [facility] Last Admin: 02/26/18 08:35 Dose: 200 mls/hr Levofloxacin/Dextrose 500 mg/ (Premix) 100 mls @ 100 mls/hr IV ONETIME ONE Stop: 02/26/18 16:29 Last Admin: 02/26/18 15:26 Dose: 100 mls/hr Levofloxacin/Dextrose 500 mg/ (Premix) 100 mls @ 100 mls/hr IV Q24H [facility] Last Admin: 02/27/18 14:32 Dose: 100 mls/hr Piperacillin Sod/Tazobactam (Sod 4.5 gm/ Sodium Chloride) 100 mls @ 200 mls/hr IV ONETIME ONE Stop: 02/26/18 15:29 Last Admin: 02/26/18 15:27 Dose: 200 mls/hr Piperacillin Sod/Tazobactam (Sod 4.5 gm/ Sodium Chloride) 100 mls @ 25 mls/hr IV Q8H [facility] Last Admin: 02/27/18 06:05 Dose: 25 mls/hr Methylprednisolone Sodium Succinate (Solu-Medrol) 40 mg IVPUSH ONETIME ONE Stop: 02/27/18 09:31 Last Admin: 02/27/18 09:51 Dose: 40 mg Pantoprazole Sodium (Protonix Iv) 80 mg IVPUSH .BOLUS ONE Stop: 02/25/18 17:58 Last Admin: 02/25/18 18:15 Dose: 80 mg Tamsulosin HCl (Flomax) 0.8 mg PO BID [facility] - Exam General: Alert, Cooperative, No Acute Distress HEENT: Pupils Equal, Pupils Reactive, EOMI, Mucous Membr. Moist/[place] Neck: Supple, Trachea Midline, No JVD Lungs: Normal Respiratory Effort, Decreased Breath Sounds Cardiovascular: Regular Rate, Regular Rhythm GI/Abdominal Exam: Normal Bowel Sounds, Soft, Non-Tender, No Organomegaly, No Distention, No Abnormal Bruit (Male) Exam: Other (indwelling paz catheter) Back Exam: Normal Inspection, Decreased Range of Motion Extremities: Normal Inspection, Normal Range of Motion, Non-Tender, No Pedal Edema, Normal Capillary Refill Peripheral Pulses: 2+: Dorsalis Pedis (L), Dorsalis Pedis (R) Skin: Warm, Dry, Intact Neurological: No New Focal Deficit Psy/Mental Status: Alert, Normal Mood. No: Normal Affect - Problem List Review Problem List Initiated/Reviewed/Updated: Yes - My Orders Last 24 Hours: My Active Orders 02/27/18 15:00 Blood Culture x2 Reflex Set [OM.PC] PER UNIT ROUTINE 02/27/18 15:18 CULTURE BLOOD [BC] Routine 02/27/18 16:05 CULTURE BLOOD [BC] Routine 02/28/18 09:00 Captopril [Capoten] 6.25 mg PO Q8H Furosemide [Lasix] 10 mg PO DAILY 02/28/18 14:30 Levofloxacin/Dextrose 5%-Water [Levaquin in D5W 750 MG/150 ML] 750 mg Premix Bag 1 bag IV Q24H 02/28/18 15:00 Nystatin [Nystop] 0 gm TOP TID 03/01/18 05:11 BASIC METABOLIC PANEL,BMP [CHEM] AM C-REACTIVE PROTEIN [CHEM] AM CBC WITH AUTO DIFF [HEME] AM MAGNESIUM [CHEM] AM 03/02/18 05:11 BASIC METABOLIC PANEL,BMP [CHEM] AM C-REACTIVE PROTEIN [CHEM] AM CBC WITH AUTO DIFF [HEME] AM MAGNESIUM [CHEM] AM - Plan Plan:: Assessment/Plan: Acute: Bacteremia w/o Hypotension * 2/2 UTI * Vitals on admission: RR of 40, Hypoxic 88% on RA, Tachycardic with HR of 122, Febrile with a Temp as high as 39.9 C, and Hypotension of 97/60 mmHg * Today: RR 20; O2 100%; HR 71; temp 37.2; BP 141/88 * LA 3.5 --> 1.7 * WBC normal on admission; 33.27--> 24.09 --> now 20.11 * Continue maintenance IV hydration * Blood culture grew gram negative rods - pending repeat blood culture result * Continue IV Levaquin UTI 2/2 E. coli * Risk factors: Urinary Retention, Immobility, Incontinence, Wears Pads, Hygiene Issues * Skin irritation and in the groin; smegma around his penis; foul smell * Urine culture grew gram negative rods - E. coli, rhodes-sensitive Non-Oliguric Renal Failure, Continue to Improve * Risk factors: Urinary Retention, Immobility, Obstructive Uropathy, Hx/o CVA and BPH * Only on flomax daily--> changed to BID * Currently hydrating * Hold ACEI and Lasix * Paz catheter to monitor Is/Os * Continue to Avoid Nephrotic Agent * Renal U/S was benign * BUN/Cr ratio 30; Cr 2.8 --> 1.8--> 1.2 * GFR 24 --> 37--> now 54 Severe Urinary Retention, Stable * 2/2 Obstructive and Reflux Uropathy * Prostate is enlarged but smooth * Change Flomax 0.4 mg po to BID, and add Finasteride 5 mg po HS and Doxazosin 2 mg po BID * Will clamp his paz cath and measure residual urine; we might be able to d/c his paz catheter Skin Breakdown * Redness and Irritation on his groin and intergluteal cleft * Risk factors: incontinence and wears pad * Skin breakdown protocol Resolved: S/p Dehydration * 2/2 Intravascular Volume Depletion * Skin turgor is delayed and oral membranes are dry * IV hydration * Monitor Is/Os S/p AMS, At baseline * 2/2 Metabolic Encephalopathy * Head CT scan showed no acute abnormal findings * UA is strongly suggestive of UTI * He seems to be more responsive - saw speech therapy today S/p Hypersensitivity Reaction * Developed rash on trunk, arms, and legs after dose of zosyn this AM * Given benadryl, famotodine, and steroids * Will flag Zosyn as part of his ADR/Allergies Chronic: 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
[2018-02-28] MEDS: Nystatin Topical Powder 15 GM Bottle TOP SCH ×2 (14:16→20:12)
[2018-02-28] MEDS: Levofloxacin/Dextrose 5%-Water 750 MG in Premix Bag 1 BAG IV SCH (14:26)
[2018-02-28] MEDS: Simvastatin 10 MG Tab PO SCH (20:08)
[2018-02-28] MEDS: Finasteride 5 MG Tab PO SCH (20:09)
[2018-02-28] MEDS: traZODone 50 MG Tab PO SCH (20:10)
[2018-03-01] MEDS: Sodium Chloride 0.9% 1,000 ML IV SCH (03:39)
[2018-03-01] MEDS: Heparin Sodium 5,000 Units/ML Vial SUBCUT SCH ×3 (03:41→18:32)
[2018-03-01] MEDS: hydrALAZINE 20 MG/ML SDV IVPUSH PRN (06:33)
[2018-03-01] MEDS: Sennosides 8.6 MG Tab PO SCH (08:01)
[2018-03-01] MEDS: Doxazosin 2 MG Tab PO SCH ×2 (08:02→20:11)
[2018-03-01] MEDS: Furosemide 20 MG Tab PO SCH (08:02)
[2018-03-01] MEDS: Clopidogrel 75 MG Tab PO SCH (08:02)
[2018-03-01] MEDS: Acetaminophen 325 MG Tab PO PRN (08:03)
[2018-03-01] MEDS: Saccharomyces Boulardii (Probiotic) 250 MG Cap PO SCH (08:04)
[2018-03-01] MEDS: Tamsulosin 0.4 MG Cap.ER PO SCH ×2 (08:05→20:13)
[2018-03-01] MEDS: Metoprolol Succinate 25 MG Tab.ER PO SCH (08:05)
[2018-03-01] MEDS: Albuterol/Ipratropium 3.0-0.5 MG/3 ML Neb Soln NEB PRN (08:13)
--- NOTE | 2018-03-01 08:21 | PCM.PN ---
- General Info Date of Service: 03/01/18 Admission Dx/Problem (Free Text): Admission Diagnosis/Problem Admission Diagnosis/Problem UTI, Urinary tract infectious disease Subjective Update: Follow Up Functional Status: Reports: Pain Controlled, Tolerating Diet, Ambulating, Urinating. Denies: New Symptoms - Review of Systems General: Denies: Fever, Weakness, Fatigue, Malaise, Chills HEENT: Reports: No Symptoms Pulmonary: Denies: Shortness of Breath Cardiovascular: Denies: Chest Pain, Dyspnea on Exertion, Lightheadedness Gastrointestinal: Denies: Abdominal Pain, Decreased Appetite, Difficulty Swallowing, Nausea, Vomiting Genitourinary: Reports: No Symptoms Musculoskeletal: Reports: No Symptoms Skin: Denies: Cyanosis, Mottled, Pallor, Diaphoresis Neurological: Reports: Gait Disturbance. Denies: Confusion, Difficulty Walking , Weakness Psychiatric: Denies: Depression, Anxiety, Agitation, Hallucinations Systems Review Comment:: No overnight or acute issues. He slept well last night. He remains afebrile w/ improving WBC level. He looks good and has no complaints. - Patient Data Vitals - Most Recent: Last Vital Signs Temp 38.0 C 03/01/18 08:03 Pulse 91 03/01/18 08:05 Resp 18 03/01/18 03:00 BP 155/89 H 03/01/18 08:05 Pulse Ox 97 03/01/18 08:17 Weight - Most Recent: 96.162 kg I&O - Last 24 Hours: Intake & Output 02/28/18 03/01/18 03/01/18 22:59 06:59 14:59 Intake Total 2273 1798 Output Total 2125 750 Balance 148 1048 Lab Results Last 24 Hours: Laboratory Results - last 24 hr 03/01/18 03/01/18 Range/Units 05:40 05:40 WBC 11.53 H (4.23-9.07) K/mm3 RBC 4.69 (4.63-6.08) M/mm3 Hgb 12.8 L (13.7-17.5) gm/L Hct 40.3 (40.1-51.0) % MCV 85.9 (79.0-92.2) fl MCH 27.3 (25.7-32.2) pg MCHC 31.8 L (32.2-35.5) g/dl RDW Std Deviation 46.0 H (35.1-43.9) fL Plt Count 213 (163-337) K/mm3 MPV 10.5 (9.4-12.3) fl Neut % (Auto) 75.0 H (34.0-67.9) % Lymph % (Auto) 16.7 L (21.8-53.1) % [place] % (Auto) 5.6 (5.3-12.2) % Eos % (Auto) 2.2 (0.8-7.0) Baso % (Auto) 0.2 (0.1-1.2) % Neut # (Auto) 8.65 H (1.78-5.38) K/mm3 Lymph # (Auto) 1.92 (1.32-3.57) K/mm3 [place] # (Auto) 0.65 (0.30-0.82) K/mm3 Eos # (Auto) 0.25 (0.04-0.54) K/mm3 Baso # (Auto) 0.02 (0.01-0.08) K/mm3 Sodium 144 (136-145) mEq/L Potassium 3.8 (3.5-5.1) mEq/L Chloride 112 H (98-107) mEq/L Carbon Dioxide 25 (21-32) mEq/L Anion Gap 10.8 (5-15) BUN 29 H (7-18) mg/dL Creatinine 1.1 (0.7-1.3) mg/dL Est Cr Clr Drug Dosing 64.39 mL/min Estimated GFR (MDRD) > 60 (>60) mL/min BUN/Creatinine Ratio 26.4 H (14-18) Glucose 89 (83-115) mg/dL Calcium 8.1 L (8.5-10.1) mg/dL Magnesium 1.8 (1.8-2.4) mg/dl C-Reactive Protein 4.6 H* (<1.0) mg/dL Heladio Results Last 24 Hours: Microbiology 02/28/18 14:00 Anaerobic Blood Culture - Final Blood 02/25/18 15:18 Aerobic Blood Culture - Final Blood - Venous Escherichia Coli Anaerobic Blood Culture - Final Escherichia Coli 02/25/18 15:29 Aerobic Blood Culture - Final Blood - Venous - Lab Draw Escherichia Coli Anaerobic Blood Culture - Final Escherichia Coli 02/27/18 16:05 Aerobic Blood Culture - Preliminary Blood - Venous - Lab Draw NO GROWTH AFTER 1 DAY Anaerobic Blood Culture - Final 02/27/18 15:18 Aerobic Blood Culture - Preliminary Blood - Venous NO GROWTH AFTER 1 DAY Anaerobic Blood Culture - Preliminary NO GROWTH AFTER 1 DAY 02/25/18 16:40 Urine Culture - Preliminary Urine, Catheterized Escherichia Coli Gram Positive Cocci Med Orders - Current: Current Medications Acetaminophen (Tylenol) 650 mg PO Q6H PRN PRN Reason: Fever Last Admin: 03/01/18 08:03 Dose: 650 mg Acetaminophen/Butalbital/Caffeine (Fioricet 325-50-40 Mg) 1 tab PO Q6H PRN PRN Reason: Headache Hydrocodone Bitart/Acetaminophen ([place] 325-5 Mg) 1 tab PO Q4H PRN PRN Reason: Pain (moderate 4-6) Al Hydroxide/Mg Hydroxide (Mag-Al Plus) 30 ml PO DAILY PRN PRN Reason: INDIGESTION Albuterol/Ipratropium (Duoneb 3.0-0.5 Mg/3 Ml) 3 ml NEB Q4H PRN PRN Reason: Shortness Of Breath/wheezing Last Admin: 03/01/18 08:13 Dose: 3 ml Bisacodyl (Dulcolax) 10 mg RECTAL DAILY PRN PRN Reason: Constipation Bisacodyl (Dulcolax) 5 mg PO DAILY PRN PRN Reason: Constipation Captopril (Capoten) 6.25 mg PO Q8H [facility] Last Admin: 03/01/18 08:04 Dose: 6.25 mg Clopidogrel Bisulfate (Plavix) 75 mg PO DAILY [facility] Last Admin: 03/01/18 08:02 Dose: 75 mg Docusate Sodium (Colace) 100 mg PO BID PRN PRN Reason: Constipation Doxazosin Mesylate (Cardura) 2 mg PO BID [facility] Last Admin: 03/01/18 08:02 Dose: 2 mg Finasteride (Proscar) 5 mg PO BEDTIME [facility] Last Admin: 02/28/18 20:09 Dose: 5 mg Furosemide (Lasix) 10 mg PO DAILY [facility] Last Admin: 03/01/18 08:02 Dose: 10 mg Heparin Sodium (Porcine) (Heparin Sodium) 5,000 units SUBCUT Q8H [facility] Last Admin: 03/01/18 03:41 Dose: 5,000 units Hydralazine HCl (Apresoline) 20 mg IVPUSH Q4H PRN PRN Reason: Hypertension Last Admin: 03/01/18 06:33 Dose: 20 mg Hydromorphone HCl (Dilaudid) 0.25 mg IVPUSH Q2H PRN PRN Reason: Pain (severe 7-10) Promethazine HCl 6.25 mg/ (Sodium Chloride) 50.25 mls @ 100 mls/hr IV Q6H PRN PRN Reason: Nausea/Vomiting Sodium Chloride (Normal Saline) 1,000 mls @ 125 mls/hr IV ASDIRECTED [facility] Last Admin: 03/01/18 03:39 Dose: 125 mls/hr Levofloxacin/Dextrose 750 mg/ (Premix) 150 mls @ 100 mls/hr IV Q24H [facility] Last Admin: 02/28/18 14:26 Dose: 100 mls/hr Lorazepam (Ativan) 2 mg IVPUSH Q4H PRN PRN Reason: Seizures Lorazepam (Ativan) 1 mg IV Q6H PRN PRN Reason: Anxiety Magnesium Sulfate (Pharmacy To Dose - Magnesium Replacement) 0 dose .XX ASDIRECTED PRN PRN Reason: RX TO DOSE MAG Metoprolol Succinate (Toprol Xl) 25 mg PO DAILY [facility] Last Admin: 03/01/18 08:05 Dose: 25 mg Metoprolol Tartrate (Lopressor) 5 mg IVPUSH Q4H PRN PRN Reason: Tachycardia Nicotine (Habitrol) 21 mg TRDERM DAILY PRN PRN Reason: Nicotine Dependence Nystatin (Nystop) 0 gm TOP TID [facility] Last Admin: 02/28/18 20:12 Dose: 1 gm Ondansetron HCl (Zofran) 4 mg IV Q6H PRN PRN Reason: Nausea/Vomiting Polyethylene Glycol (Miralax) 17 gm PO DAILY PRN PRN Reason: Constipation Potassium Chloride (Pharmacy To Dose - Potassium Replacement) 0 dose .XX ASDIRECTED PRN PRN Reason: RX TO DOSE K Saccharomyces Boulardii (Florastor) 250 mg PO DAILY [facility] Last Admin: 03/01/18 08:04 Dose: 250 mg Senna (Senna) 17.2 mg PO DAILY [facility] Last Admin: 03/01/18 08:01 Dose: 17.2 mg Senna (Senna) 17.2 mg PO DAILY PRN PRN Reason: Constipation Senna/Docusate Sodium (Senna Plus) 1 tab PO BID PRN PRN Reason: Constipation Simvastatin (Zocor) 10 mg PO BEDTIME [facility] Last Admin: 02/28/18 20:08 Dose: 10 mg Tamsulosin HCl (Flomax) 0.4 mg PO BID [facility] Last Admin: 03/01/18 08:05 Dose: 0.4 mg Trazodone HCl (Trazodone) 25 mg PO BEDTIME [facility] Last Admin: 02/28/18 20:10 Dose: 25 mg Discontinued Medications Acetaminophen (Tylenol) 650 mg RECTAL NOW ONE Stop: 02/25/18 14:59 Last Admin: 02/25/18 15:11 Dose: 650 mg Albuterol/Ipratropium (Duoneb 3.0-0.5 Mg/3 Ml) 3 ml NEB ONETIME ONE Stop: 02/25/18 15:27 Last Admin: 02/25/18 15:28 Dose: 3 ml Captopril (Capoten) 6.25 mg PO Q8H [facility] Diphenhydramine HCl (Benadryl) 50 mg PO ONETIME ONE Stop: 02/27/18 08:56 Last Admin: 02/27/18 08:54 Dose: 50 mg Famotidine (Pepcid) 20 mg IVPUSH ONETIME STA Stop: 02/27/18 09:31 Last Admin: 02/27/18 09:52 Dose: 20 mg Famotidine (Pepcid) 20 mg PO BID HERNANDO Stop: 02/28/18 09:01 Last Admin: 02/28/18 09:16 Dose: 20 mg Furosemide (Lasix) 10 mg PO DAILY [facility] Hydromorphone HCl (Dilaudid) 0.25 mg IVPUSH Q2H PRN PRN Reason: Pain (severe 7-10) Sodium Chloride (Normal Saline) 1,000 mls @ 1,000 mls/hr IV ONETIME ONE Stop: 02/25/18 16:18 Last Admin: 02/25/18 16:10 Dose: Not Given Sodium Chloride (Normal Saline) 1,000 mls @ 999 mls/hr IV ONETIME ONE Stop: 02/25/18 16:36 Last Admin: 02/25/18 15:43 Dose: 999 mls/hr Sodium Chloride (Normal Saline) 1,000 mls @ 999 mls/hr IV ONETIME ONE Stop: 02/25/18 17:53 Last Admin: 02/25/18 16:55 Dose: 999 mls/hr Ceftriaxone Sodium 2 gm/ (Sodium Chloride) 100 mls @ 100 mls/hr IV ONETIME ONE Stop: 02/25/18 18:17 Last Admin: 02/25/18 18:05 Dose: 100 mls/hr Sodium Chloride (Normal Saline) 1,000 mls @ 999 mls/hr IV ONETIME ONE Stop: 02/25/18 19:05 Last Admin: 02/25/18 17:55 Dose: 999 mls/hr Sodium Chloride (Normal Saline) 1,000 mls @ 150 mls/hr IV ASDIRECTED [facility] Last Admin: 02/26/18 02:47 Dose: 150 mls/hr Sodium Chloride (Normal Saline) 1,000 mls @ 150 mls/hr IV ASDIRECTED [facility] Last Admin: 02/25/18 21:00 Dose: 150 mls/hr Ceftriaxone Sodium 1 gm/ (Sodium Chloride) 100 mls @ 200 mls/hr IV Q24H [facility] Last Admin: 02/26/18 08:35 Dose: 200 mls/hr Levofloxacin/Dextrose 500 mg/ (Premix) 100 mls @ 100 mls/hr IV ONETIME ONE Stop: 02/26/18 16:29 Last Admin: 02/26/18 15:26 Dose: 100 mls/hr Levofloxacin/Dextrose 500 mg/ (Premix) 100 mls @ 100 mls/hr IV Q24H [facility] Last Admin: 02/27/18 14:32 Dose: 100 mls/hr Piperacillin Sod/Tazobactam (Sod 4.5 gm/ Sodium Chloride) 100 mls @ 200 mls/hr IV ONETIME ONE Stop: 02/26/18 15:29 Last Admin: 02/26/18 15:27 Dose: 200 mls/hr Piperacillin Sod/Tazobactam (Sod 4.5 gm/ Sodium Chloride) 100 mls @ 25 mls/hr IV Q8H [facility] Last Admin: 02/27/18 06:05 Dose: 25 mls/hr Methylprednisolone Sodium Succinate (Solu-Medrol) 40 mg IVPUSH ONETIME ONE Stop: 02/27/18 09:31 Last Admin: 02/27/18 09:51 Dose: 40 mg Pantoprazole Sodium (Protonix Iv) 80 mg IVPUSH .BOLUS ONE Stop: 02/25/18 17:58 Last Admin: 02/25/18 18:15 Dose: 80 mg Tamsulosin HCl (Flomax) 0.8 mg PO BID HERNANDO - Exam General: Alert, Oriented, Cooperative, No Acute Distress HEENT: Pupils Equal, Pupils Reactive, EOMI, Mucous Membr. Moist/[place] Neck: Supple, Trachea Midline, No JVD Lungs: Clear to Auscultation, Normal Respiratory Effort, Decreased Breath Sounds Cardiovascular: Regular Rate, Regular Rhythm GI/Abdominal Exam: Normal Bowel Sounds, Soft, Non-Tender, No Organomegaly, No Distention, No Abnormal Bruit, No Mass (Male) Exam: Other (indwelling paz catheter) Back Exam: Normal Inspection, Decreased Range of Motion Extremities: Normal Inspection, Normal Range of Motion, Non-Tender, No Pedal Edema, Other (Trace edema on left lower extremity) Skin: Warm, Dry, Intact Neurological: No New Focal Deficit. No: Normal Gait, Normal Speech Psy/Mental Status: Alert. No: Normal Affect, Normal Mood - Problem List Review Problem List Initiated/Reviewed/Updated: Yes - My Orders Last 24 Hours: My Active Orders 02/28/18 09:00 Captopril [Capoten] 6.25 mg PO Q8H Furosemide [Lasix] 10 mg PO DAILY 02/28/18 14:00 CULTURE BLOOD [BC] Routine 02/28/18 14:30 Levofloxacin/Dextrose 5%-Water [Levaquin in D5W 750 MG/150 ML] 750 mg Premix Bag 1 bag IV Q24H 02/28/18 15:00 Nystatin [Nystop] 0 gm TOP TID 03/02/18 05:11 BASIC METABOLIC PANEL,BMP [CHEM] AM C-REACTIVE PROTEIN [CHEM] AM CBC WITH AUTO DIFF [HEME] AM MAGNESIUM [CHEM] AM - Plan Plan:: Assessment/Plan: Acute: Bacteremia w/o Hypotension * 2/2 UTI * Vitals on admission: RR of 40, Hypoxic 88% on RA, Tachycardic with HR of 122, Febrile with a Temp as high as 39.9 C, and Hypotension of 97/60 mmHg * Today: RR 20; O2 100%; HR 71; temp 37.2; BP 141/88 * LA 3.5 --> 1.7 * WBC normal on admission; 33.27--> 24.09 --> 20.11---> now 11.53 * CRP 21.6--> 22.4 --> 10.1 --> now 4.6 * Continue maintenance IV hydration * Blood culture grew gram negative rods - repeat blood culture so far negative for 24hrs * Continue Levaquin but will switch to oral dosing UTI 2/2 E. coli * Risk factors: Urinary Retention, Immobility, Incontinence, Wears Pads, Hygiene Issues * Skin irritation and in the groin; smegma around his penis; foul smell * Urine culture grew gram negative rods - E. coli and Aerococcus Urinae, rhodes- sensitive Severe Urinary Retention, Stable * 2/2 Obstructive and Reflux Uropathy * Had over 1500 ml after straight cath in ED * Prostate is enlarged but smooth * Continue Flomax 0.4 mg po to BID, Finasteride 5 mg po HS and Doxazosin 2 mg po BID * We clamp his paz cath and measured residual urine--> 250 ml in < 2 hrs * Will keep paz catheter in Skin Breakdown, Improved * Redness and Irritation on his groin and intergluteal cleft * Risk factors: incontinence and wears pad * Skin breakdown protocol Resolved: S/p Dehydration * 2/2 Intravascular Volume Depletion * Skin turgor is delayed and oral membranes are dry * IV hydration * Monitor Is/Os S/p AMS, At baseline * 2/2 Metabolic Encephalopathy * Head CT scan showed no acute abnormal findings * UA is strongly suggestive of UTI * He seems to be more responsive - saw speech therapy today S/p Hypersensitivity Reaction * Developed rash on trunk, arms, and legs after dose of zosyn this AM * Given benadryl, famotodine, and steroids * Will flag Zosyn as part of his ADR/Allergies S/p Non-Oliguric Renal Failure, at baseline * Risk factors: Urinary Retention, Immobility, Obstructive Uropathy, Hx/o CVA and BPH * Only on flomax daily--> changed to BID * Currently hydrating; saline lock * Hold ACEI and Lasix; resume home meds * Paz catheter to monitor Is/Os * Continue to Avoid Nephrotic Agent * Renal U/S was benign * BUN/Cr ratio 30; Cr 2.8 --> 1.8--> 1.2--> now 1.1 * GFR 24 --> 37--> 54--> now > 60 * Consider removing paz catheter Chronic: Impaired Hearing ([place]-neural hearing loss) 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
[2018-03-01] MEDS: Nystatin Topical Powder 15 GM Bottle TOP SCH ×3 (09:00→20:14)
[2018-03-01] MEDS: Levofloxacin/Dextrose 5%-Water 750 MG in Premix Bag 1 BAG IV SCH (14:47)
[2018-03-01] MEDS: Finasteride 5 MG Tab PO SCH (20:12)
[2018-03-01] MEDS: traZODone 50 MG Tab PO SCH (20:12)
[2018-03-01] MEDS: Simvastatin 10 MG Tab PO SCH (20:13)
[2018-03-02] MEDS: Heparin Sodium 5,000 Units/ML Vial SUBCUT SCH ×3 (04:17→18:38)
[2018-03-02] MEDS: hydrALAZINE 20 MG/ML SDV IVPUSH PRN (04:28)
[2018-03-02] MEDS: Saccharomyces Boulardii (Probiotic) 250 MG Cap PO SCH (08:03)
[2018-03-02] MEDS: Furosemide 20 MG Tab PO SCH (08:04)
[2018-03-02] MEDS: Tamsulosin 0.4 MG Cap.ER PO SCH ×2 (08:05→20:29)
[2018-03-02] MEDS: Clopidogrel 75 MG Tab PO SCH (08:06)
[2018-03-02] MEDS: Doxazosin 2 MG Tab PO SCH ×2 (08:07→20:30)
[2018-03-02] MEDS: Nystatin Topical Powder 15 GM Bottle TOP SCH ×3 (08:08→20:32)
[2018-03-02] MEDS: Metoprolol Succinate 25 MG Tab.ER PO SCH (08:08)
[2018-03-02] MEDS: Sennosides 8.6 MG Tab PO SCH (08:09)
[2018-03-02] MEDS: Acetaminophen 325 MG Tab PO PRN (08:17)
[2018-03-02] MEDS ORDERED: Bumetanide 1 MG/4 ML MDV IVPUSH ONE ×2 (08:17→18:00)
--- NOTE | 2018-03-02 08:52 | PCM.PN ---
- General Info Date of Service: 03/02/18 Admission Dx/Problem (Free Text): Admission Diagnosis/Problem Admission Diagnosis/Problem UTI, Urinary tract infectious disease Subjective Update: Follow Up Functional Status: Reports: Pain Controlled, Tolerating Diet, Ambulating, Urinating, New Symptoms - Review of Systems General: Denies: Fever, Weakness, Fatigue, Malaise, Chills HEENT: Reports: No Symptoms Pulmonary: Denies: Shortness of Breath Cardiovascular: Denies: Chest Pain, Dyspnea on Exertion, Lightheadedness Gastrointestinal: Denies: Abdominal Pain, Diarrhea, Vomiting Genitourinary: Reports: No Symptoms Musculoskeletal: Reports: No Symptoms Skin: Denies: Cyanosis, Mottled, Pallor, Diaphoresis, Pruritis Neurological: Denies: Confusion, Numbness, Difficulty Walking, Gait Disturbance Psychiatric: Denies: No Symptoms Systems Review Comment:: No overnight or acute issues. He rested well last night. He reports no complaints. This AM per nurse, he had a choking spell and got got of breath during breakfast. He is now clinically stable. His WBC and CRP levels continue to trend down. - Patient Data Vitals - Most Recent: Last Vital Signs Temp 38.0 C 03/02/18 08:17 Pulse 107 H 03/02/18 08:08 Resp 17 03/02/18 03:00 BP 146/86 H 03/02/18 08:08 Pulse Ox 94 L 03/02/18 03:00 Weight - Most Recent: 96.071 kg I&O - Last 24 Hours: Intake & Output 03/01/18 03/02/18 03/02/18 22:59 06:59 14:59 Intake Total 1130 300 Output Total 1050 875 Balance 80 -575 Lab Results Last 24 Hours: Laboratory Results - last 24 hr 03/02/18 03/02/18 Range/Units 05:52 05:52 WBC 11.30 H (4.23-9.07) K/mm3 RBC 5.19 (4.63-6.08) M/mm3 Hgb 14.2 (13.7-17.5) gm/L Hct 43.8 (40.1-51.0) % MCV 84.4 (79.0-92.2) fl MCH 27.4 (25.7-32.2) pg MCHC 32.4 (32.2-35.5) g/dl RDW Std Deviation 44.4 H (35.1-43.9) fL Plt Count 230 (163-337) K/mm3 MPV 10.5 (9.4-12.3) fl Neut % (Auto) 70.9 H (34.0-67.9) % Lymph % (Auto) 16.6 L (21.8-53.1) % Norton % (Auto) 8.3 (5.3-12.2) % Eos % (Auto) 2.5 (0.8-7.0) Baso % (Auto) 0.2 (0.1-1.2) % Neut # (Auto) 8.01 H (1.78-5.38) K/mm3 Lymph # (Auto) 1.88 (1.32-3.57) K/mm3 Norton # (Auto) 0.94 H (0.30-0.82) K/mm3 Eos # (Auto) 0.28 (0.04-0.54) K/mm3 Baso # (Auto) 0.02 (0.01-0.08) K/mm3 Manual Slide Review Abnormal smear Sodium 138 (136-145) mEq/L Potassium 3.6 (3.5-5.1) mEq/L Chloride 107 (98-107) mEq/L Carbon Dioxide 25 (21-32) mEq/L Anion Gap 9.6 (5-15) BUN 26 H (7-18) mg/dL Creatinine 1.1 (0.7-1.3) mg/dL Est Cr Clr Drug Dosing 64.39 mL/min Estimated GFR (MDRD) > 60 (>60) mL/min BUN/Creatinine Ratio 23.6 H (14-18) Glucose 95 (83-115) mg/dL Calcium 8.5 (8.5-10.1) mg/dL Magnesium 1.7 L (1.8-2.4) mg/dl C-Reactive Protein 3.2 H* (<1.0) mg/dL Heladio Results Last 24 Hours: Microbiology 02/25/18 16:40 Urine Culture - Final Urine, Catheterized Escherichia Coli Aerococcus Urinae 02/27/18 16:05 Aerobic Blood Culture - Preliminary Blood - Venous - Lab Draw NO GROWTH AFTER 2 DAYS Anaerobic Blood Culture - Final 02/27/18 15:18 Aerobic Blood Culture - Preliminary Blood - Venous NO GROWTH AFTER 2 DAYS Anaerobic Blood Culture - Preliminary NO GROWTH AFTER 2 DAYS 02/28/18 14:00 Aerobic Blood Culture - Preliminary Blood NO GROWTH AFTER 1 DAY Anaerobic Blood Culture - Final 02/25/18 15:18 Aerobic Blood Culture - Final Blood - Venous Escherichia Coli Anaerobic Blood Culture - Final Escherichia Coli 02/25/18 15:29 Aerobic Blood Culture - Final Blood - Venous - Lab Draw Escherichia Coli Anaerobic Blood Culture - Final Escherichia Coli Med Orders - Current: Current Medications Acetaminophen (Tylenol) 650 mg PO Q6H PRN PRN Reason: Fever Last Admin: 03/02/18 08:17 Dose: 650 mg Acetaminophen/Butalbital/Caffeine (Fioricet 325-50-40 Mg) 1 tab PO Q6H PRN PRN Reason: Headache Hydrocodone Bitart/Acetaminophen (Talala 325-5 Mg) 1 tab PO Q4H PRN PRN Reason: Pain (moderate 4-6) Al Hydroxide/Mg Hydroxide (Mag-Al Plus) 30 ml PO DAILY PRN PRN Reason: INDIGESTION Albuterol/Ipratropium (Duoneb 3.0-0.5 Mg/3 Ml) 3 ml NEB Q4H PRN PRN Reason: Shortness Of Breath/wheezing Last Admin: 03/01/18 08:13 Dose: 3 ml Bisacodyl (Dulcolax) 10 mg RECTAL DAILY PRN PRN Reason: Constipation Bisacodyl (Dulcolax) 5 mg PO DAILY PRN PRN Reason: Constipation Captopril (Capoten) 6.25 mg PO Q8H [facility] Last Admin: 03/02/18 08:07 Dose: 6.25 mg Clopidogrel Bisulfate (Plavix) 75 mg PO DAILY [facility] Last Admin: 03/02/18 08:06 Dose: 75 mg Docusate Sodium (Colace) 100 mg PO BID PRN PRN Reason: Constipation Doxazosin Mesylate (Cardura) 2 mg PO BID [facility] Last Admin: 03/02/18 08:07 Dose: 2 mg Finasteride (Proscar) 5 mg PO BEDTIME [facility] Last Admin: 03/01/18 20:12 Dose: 5 mg Heparin Sodium (Porcine) (Heparin Sodium) 5,000 units SUBCUT Q8H [facility] Last Admin: 03/02/18 04:17 Dose: 5,000 units Hydralazine HCl (Apresoline) 20 mg IVPUSH Q4H PRN PRN Reason: Hypertension Last Admin: 03/02/18 04:28 Dose: 20 mg Hydromorphone HCl (Dilaudid) 0.25 mg IVPUSH Q2H PRN PRN Reason: Pain (severe 7-10) Promethazine HCl 6.25 mg/ (Sodium Chloride) 50.25 mls @ 100 mls/hr IV Q6H PRN PRN Reason: Nausea/Vomiting Sodium Chloride (Normal Saline) 1,000 mls @ 125 mls/hr IV ASDIRECTED [facility] Last Admin: 03/01/18 03:39 Dose: 125 mls/hr Levofloxacin (Levaquin) 500 mg PO Q24H [facility] Lorazepam (Ativan) 2 mg IVPUSH Q4H PRN PRN Reason: Seizures Lorazepam (Ativan) 1 mg IV Q6H PRN PRN Reason: Anxiety Magnesium Sulfate (Pharmacy To Dose - Magnesium Replacement) 0 dose .XX ASDIRECTED PRN PRN Reason: RX TO DOSE MAG Metoprolol Succinate (Toprol Xl) 25 mg PO DAILY [facility] Last Admin: 03/02/18 08:08 Dose: 25 mg Metoprolol Tartrate (Lopressor) 5 mg IVPUSH Q4H PRN PRN Reason: Tachycardia Nicotine (Habitrol) 21 mg TRDERM DAILY PRN PRN Reason: Nicotine Dependence Nystatin (Nystop) 0 gm TOP TID [facility] Last Admin: 03/02/18 08:08 Dose: 15 gm Ondansetron HCl (Zofran) 4 mg IV Q6H PRN PRN Reason: Nausea/Vomiting Last Admin: 03/02/18 08:33 Dose: 4 mg Polyethylene Glycol (Miralax) 17 gm PO DAILY PRN PRN Reason: Constipation Potassium Chloride (Pharmacy To Dose - Potassium Replacement) 0 dose .XX ASDIRECTED PRN PRN Reason: RX TO DOSE K Saccharomyces Boulardii (Florastor) 250 mg PO DAILY [facility] Last Admin: 03/02/18 08:03 Dose: 250 mg Senna (Senna) 17.2 mg PO DAILY [facility] Last Admin: 03/02/18 08:09 Dose: Not Given Senna (Senna) 17.2 mg PO DAILY PRN PRN Reason: Constipation Senna/Docusate Sodium (Senna Plus) 1 tab PO BID PRN PRN Reason: Constipation Simvastatin (Zocor) 10 mg PO BEDTIME [facility] Last Admin: 03/01/18 20:13 Dose: 10 mg Tamsulosin HCl (Flomax) 0.4 mg PO BID [facility] Last Admin: 03/02/18 08:05 Dose: 0.4 mg Trazodone HCl (Trazodone) 25 mg PO BEDTIME [facility] Last Admin: 03/01/18 20:12 Dose: 25 mg Discontinued Medications Acetaminophen (Tylenol) 650 mg RECTAL NOW ONE Stop: 02/25/18 14:59 Last Admin: 02/25/18 15:11 Dose: 650 mg Albuterol/Ipratropium (Duoneb 3.0-0.5 Mg/3 Ml) 3 ml NEB ONETIME ONE Stop: 02/25/18 15:27 Last Admin: 02/25/18 15:28 Dose: 3 ml Bumetanide (Bumex) 0.5 mg IVPUSH ONETIME ONE Stop: 03/02/18 08:18 Last Admin: 03/02/18 08:40 Dose: 0.5 mg Captopril (Capoten) 6.25 mg PO Q8H [facility] Diphenhydramine HCl (Benadryl) 50 mg PO ONETIME ONE Stop: 02/27/18 08:56 Last Admin: 02/27/18 08:54 Dose: 50 mg Famotidine (Pepcid) 20 mg IVPUSH ONETIME STA Stop: 02/27/18 09:31 Last Admin: 02/27/18 09:52 Dose: 20 mg Famotidine (Pepcid) 20 mg PO BID [facility] Stop: 02/28/18 09:01 Last Admin: 02/28/18 09:16 Dose: 20 mg Furosemide (Lasix) 10 mg PO DAILY [facility] Furosemide (Lasix) 10 mg PO DAILY [facility] Last Admin: 03/02/18 08:04 Dose: 10 mg Hydromorphone HCl (Dilaudid) 0.25 mg IVPUSH Q2H PRN PRN Reason: Pain (severe 7-10) Sodium Chloride (Normal Saline) 1,000 mls @ 1,000 mls/hr IV ONETIME ONE Stop: 02/25/18 16:18 Last Admin: 02/25/18 16:10 Dose: Not Given Sodium Chloride (Normal Saline) 1,000 mls @ 999 mls/hr IV ONETIME ONE Stop: 02/25/18 16:36 Last Admin: 02/25/18 15:43 Dose: 999 mls/hr Sodium Chloride (Normal Saline) 1,000 mls @ 999 mls/hr IV ONETIME ONE Stop: 02/25/18 17:53 Last Admin: 02/25/18 16:55 Dose: 999 mls/hr Ceftriaxone Sodium 2 gm/ (Sodium Chloride) 100 mls @ 100 mls/hr IV ONETIME ONE Stop: 02/25/18 18:17 Last Admin: 02/25/18 18:05 Dose: 100 mls/hr Sodium Chloride (Normal Saline) 1,000 mls @ 999 mls/hr IV ONETIME ONE Stop: 02/25/18 19:05 Last Admin: 02/25/18 17:55 Dose: 999 mls/hr Sodium Chloride (Normal Saline) 1,000 mls @ 150 mls/hr IV ASDIRECTED [facility] Last Admin: 02/26/18 02:47 Dose: 150 mls/hr Sodium Chloride (Normal Saline) 1,000 mls @ 150 mls/hr IV ASDIRECTED [facility] Last Admin: 02/25/18 21:00 Dose: 150 mls/hr Ceftriaxone Sodium 1 gm/ (Sodium Chloride) 100 mls @ 200 mls/hr IV Q24H [facility] Last Admin: 02/26/18 08:35 Dose: 200 mls/hr Levofloxacin/Dextrose 500 mg/ (Premix) 100 mls @ 100 mls/hr IV ONETIME ONE Stop: 02/26/18 16:29 Last Admin: 02/26/18 15:26 Dose: 100 mls/hr Levofloxacin/Dextrose 500 mg/ (Premix) 100 mls @ 100 mls/hr IV Q24H [facility] Last Admin: 02/27/18 14:32 Dose: 100 mls/hr Piperacillin Sod/Tazobactam (Sod 4.5 gm/ Sodium Chloride) 100 mls @ 200 mls/hr IV ONETIME ONE Stop: 02/26/18 15:29 Last Admin: 02/26/18 15:27 Dose: 200 mls/hr Piperacillin Sod/Tazobactam (Sod 4.5 gm/ Sodium Chloride) 100 mls @ 25 mls/hr IV Q8H [facility] Last Admin: 02/27/18 06:05 Dose: 25 mls/hr Levofloxacin/Dextrose 750 mg/ (Premix) 150 mls @ 100 mls/hr IV Q24H [facility] Last Admin: 03/01/18 14:47 Dose: 100 mls/hr Methylprednisolone Sodium Succinate (Solu-Medrol) 40 mg IVPUSH ONETIME ONE Stop: 02/27/18 09:31 Last Admin: 02/27/18 09:51 Dose: 40 mg Pantoprazole Sodium (Protonix Iv) 80 mg IVPUSH .BOLUS ONE Stop: 02/25/18 17:58 Last Admin: 02/25/18 18:15 Dose: 80 mg Tamsulosin HCl (Flomax) 0.8 mg PO BID [facility] - Exam General: Alert, Cooperative, No Acute Distress HEENT: Pupils Equal, Pupils Reactive, EOMI, Mucous Membr. Moist/[place] Neck: Supple, Trachea Midline Lungs: Clear to Auscultation, Normal Respiratory Effort Cardiovascular: Regular Rate, Regular Rhythm GI/Abdominal Exam: Normal Bowel Sounds, Soft, Non-Tender, No Organomegaly, No Distention, No Abnormal Bruit (Male) Exam: Scrotal Swelling, Suprapubic Fullness, Other (Penile edema). No : Normal Inspection, Penile Lesions, Rash, Scrotum Tenderness (L), Scrotum Tenderness (R), Testicular Mass, Testicular Tenderness (L), Testicular Tenderness (R), Urethral Discharge Back Exam: Normal Inspection, Decreased Range of Motion Extremities: Normal Inspection, Normal Range of Motion, Non-Tender, Normal Capillary Refill, Other (Peripheral edema on left lower extremity) Peripheral Pulses: 2+: Dorsalis Pedis (L), Dorsalis Pedis (R) Skin: Warm, Dry, Intact Neurological: No New Focal Deficit. No: Normal Gait Psy/Mental Status: Alert. No: Normal Affect (flat), Depressed, Suicidal Ideation, Homicidal Ideation, Hallucinations, Withdrawal Symptoms - Problem List & Annotations (1) Bacteremia SNOMED Code(s): 9193757 Code(s): R78.81 - BACTEREMIA Status: Acute Current Visit: Yes (2) Urinary retention due to benign prostatic hyperplasia SNOMED Code(s): 356083717 Code(s): N40.1 - BENIGN PROSTATIC HYPERPLASIA WITH LOWER URINARY TRACT SYMP; R33.8 - OTHER RETENTION OF URINE Status: Acute Current Visit: Yes (3) Altered mental status SNOMED Code(s): 071332579 Code(s): R41.82 - ALTERED MENTAL STATUS, UNSPECIFIED Status: Acute Current Visit: Yes (4) Hypersensitivity SNOMED Code(s): 041693090 Code(s): T78.40XA - ALLERGY, UNSPECIFIED, INITIAL ENCOUNTER Status: Acute Current Visit: Yes (5) Acute renal failure SNOMED Code(s): 51227132 Code(s): N17.9 - ACUTE KIDNEY FAILURE, UNSPECIFIED Status: Acute Current Visit: Yes (6) BPH (benign prostatic hyperplasia) SNOMED Code(s): 236867208 Code(s): N40.0 - BENIGN PROSTATIC HYPERPLASIA WITHOUT LOWER URINRY TRACT SYMP Status: Acute Current Visit: Yes (7) Hypotension SNOMED Code(s): 86142698 Code(s): I95.9 - HYPOTENSION, UNSPECIFIED Status: Acute Current Visit: Yes Qualifiers: Hypotension type: other hypotension type Qualified Code(s): I95.89 - Other hypotension (8) UTI (urinary tract infection) SNOMED Code(s): 60201405 Code(s): N39.0 - URINARY TRACT INFECTION, SITE NOT SPECIFIED Status: Acute Current Visit: Yes Qualifiers: Urinary tract infection type: site unspecified Hematuria presence: without hematuria Qualified Code(s): N39.0 - Urinary tract infection, site not specified - Problem List Review Problem List Initiated/Reviewed/Updated: Yes - My Orders Last 24 Hours: My Active Orders 03/01/18 09:11 Chest 1V Frontal [CR] Stat 03/01/18 12:03 Consult to Physician [CONS] Routine 03/02/18 14:00 levoFLOXacin [Levaquin] 500 mg PO Q24H - Plan Plan:: Assessment/Plan: Acute: Bacteremia w/o Hypotension * 2/2 UTI * Vitals on admission: RR of 40, Hypoxic 88% on RA, Tachycardic with HR of 122, Febrile with a Temp as high as 39.9 C, and Hypotension of 97/60 mmHg * Today: RR 20; O2 100%; HR 71; temp 37.2; BP 141/88 * LA 3.5 --> 1.7 * WBC normal on admission; 33.27--> 24.09 --> 20.11---> 11.53_-> now 11.30 * CRP 21.6--> 22.4 --> 10.1 --> 4.6--> now 3.2 * Continue maintenance IV hydration * Blood culture grew E. coli - repeat blood culture so far negative for 48hrs for 1 set of bottle * Continue Levaquin but will switch to oral dosing UTI 2/2 E. coli and Aerococcus Urinae * Risk factors: Urinary Retention, Immobility, Incontinence, Wears Pads, Hygiene Issues * Skin irritation and in the groin; smegma around his penis; foul smell * Urine culture grew gram negative rods - E. coli and Aerococcus Urinae, rhodes- sensitive Severe Urinary Retention, Stable * 2/2 Obstructive and Reflux Uropathy * Had over 1500 ml after straight cath in ED * Prostate is enlarged but smooth * Continue Flomax 0.4 mg po to BID, Finasteride 5 mg po HS and Doxazosin 2 mg po BID * We clamp his paz cath and measured residual urine--> 250 ml in < 2 hrs; We removed paz catheter to find out if he can void w/o significant retention---> after 2 hrs bladder scan showed almost 1L of urine in the bladder and when he was taken to the toilet to void; it took him forever * Will resume paz catheter in and definitely need to see urology after discharge Mild Penile and Moderate Scrotal Swelling * Present since admission * He is now back on diuretic * Defer to urology for further evaluation HTN * Not well controlled * Resume loop diuretic * Saline lock * Norvasc 10 mg po HS and 5 mg po one time dose now Choking Spell * Has baseline dysphagia and dysphonia * STOPER eval : no evidenced of dysphagia * Suspect some form of impairment from remote hx/o stroke * Aspiration precaution and advised patient to take time with chewing, grinding and swallowing Resolved: S/p Dehydration * 2/2 Intravascular Volume Depletion * Skin turgor is delayed and oral membranes are dry * IV hydration * Monitor Is/Os S/p AMS, At baseline * 2/2 Metabolic Encephalopathy * Head CT scan showed no acute abnormal findings * UA is strongly suggestive of UTI * He seems to be more responsive - saw speech therapy today S/p Hypersensitivity Reaction * Developed rash on trunk, arms, and legs after dose of zosyn this AM * Given benadryl, famotodine, and steroids * Will flag Zosyn as part of his ADR/Allergies S/p Non-Oliguric Renal Failure, at baseline * Risk factors: Urinary Retention, Immobility, Obstructive Uropathy, Hx/o CVA and BPH * Only on flomax daily--> changed to BID * Currently hydrating; saline lock * Hold ACEI and Lasix; resume home meds * Paz catheter to monitor Is/Os * Continue to Avoid Nephrotic Agent * Renal U/S was benign * BUN/Cr ratio 30; Cr 2.8 --> 1.8--> 1.2--> now 1.1 * GFR 24 --> 37--> 54--> now > 60 * Consider removing paz catheter S/p Skin Breakdown * Redness and Irritation on his groin and intergluteal cleft--> significantly improved * Risk factors: incontinence and wears pad * Skin breakdown protocol Chronic: Impaired Hearing (Sens[place]-neural hearing loss) Impaired Speech/Dysphonia 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 Robert for acute depression: recommended d/c trazodone and start prozac 10 mg po daily SW/CM for d/c planning Additional orders as above Encourage to ambulate as tolerated Code status: 1 LOS > 96 hrs pending 48 hrs result 2nd set of repeat blood culture
[2018-03-02] MEDS ORDERED: Magnesium Oxide 400 MG Tab PO ONE (09:00)
[2018-03-02] MEDS: FLUoxetine 10 MG Cap PO SCH (10:24)
[2018-03-02] MEDS: Levofloxacin 500 MG Tab PO SCH (13:11)
[2018-03-02] MEDS ORDERED: amLODIPine 5 MG Tab PO ONE (13:26)
[2018-03-02] MEDS: Finasteride 5 MG Tab PO SCH (20:29)
[2018-03-02] MEDS: Simvastatin 10 MG Tab PO SCH (20:30)
[2018-03-02] MEDS ORDERED: amLODIPine 10 MG Tab PO SCH (21:00)
[2018-03-03] MEDS: Heparin Sodium 5,000 Units/ML Vial SUBCUT SCH ×2 (03:25→11:38)
--- NOTE | 2018-03-03 07:13 | CR ---
Chest: Portable view of the chest was obtained. Comparison: Prior chest x-ray of 02/25/18. Heart size at the upper limits of normal for portable technique. Tortuous thoracic aorta is seen. Upper mediastinum is slightly widened which appears stable. Minimal basilar atelectasis is noted. Blunting of the lateral left costophrenic angle is seen most likely due to minimal pleural effusion. Impression: 1. Mild bibasilar atelectasis and questionable minimal left-sided pleural effusion. Diagnostic code #3 I agree with preliminary report from [facility], finalized on 03/01/18, 12:18 PM Central Time
[2018-03-03] MEDS: Clopidogrel 75 MG Tab PO SCH (08:38)
[2018-03-03] MEDS: Metoprolol Succinate 25 MG Tab.ER PO SCH (08:38)
[2018-03-03] MEDS: Saccharomyces Boulardii (Probiotic) 250 MG Cap PO SCH (08:38)
[2018-03-03] MEDS: FLUoxetine 10 MG Cap PO SCH (08:38)
[2018-03-03] MEDS: Sennosides 8.6 MG Tab PO SCH (08:38)
[2018-03-03] MEDS: Tamsulosin 0.4 MG Cap.ER PO SCH (08:39)
[2018-03-03] MEDS: Doxazosin 2 MG Tab PO SCH (08:39)
[2018-03-03] MEDS: Nystatin Topical Powder 15 GM Bottle TOP SCH (08:44)
[2018-03-03 12:34] VITALS: BP 135/73
[2018-03-03] MEDS: Levofloxacin 500 MG Tab PO SCH (13:03)
--- NOTE | 2018-03-03 13:11 | PCM.DCSUM1 ---
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 No report of seizure activity. Patient is a very poor historian. HPI was obtained via secondary sources. On presentation to ED he was found to have a temperature of 103, tachycardia with a HR of 115 on EKG and Tachypneic with a RR of 40. His initial work up in ED shows a CBC remarkable for neutrophils of 26.2%, lymphocytes of 2.1%, monocytes of 1.5%, and eosinophils/basophils of 0%. His chemistry is significant for anion gap of 17.7, BUN of 41, creatinine of 2.8, glucose of 160 , lactic acid of 3.5, and total bilirubin of 1.4. His UA is strongly suggestive of urinary tract infection. His head CT scan report reads senescent change. No acute intra-cranial abnormality is identified. Patient is being admitted primarily for Sepsis secondary to UTI. He is full code Diagnosis: Stroke: No Modified Kb Scale: No Symptoms at All Modified Kb Scale Score: 0 - Discharge Data Discharge Date: 03/03/18 Discharge Disposition: DC/Tfer to [facility] Condition: Good - Discharge Diagnosis/Problem(s) (1) Bacteremia SNOMED Code(s): 4912790 ICD Code: R78.81 - BACTEREMIA Status: Resolved Current Visit: Yes (2) Urinary retention due to benign prostatic hyperplasia SNOMED Code(s): 072120400 ICD Code: N40.1 - BENIGN PROSTATIC HYPERPLASIA WITH LOWER URINARY TRACT SYMP ; R33.8 - OTHER RETENTION OF URINE Status: Acute Current Visit: Yes (3) Altered mental status SNOMED Code(s): 531866963 ICD Code: R41.82 - ALTERED MENTAL STATUS, UNSPECIFIED Status: Resolved Current Visit: Yes Qualifiers: Altered mental status type: transient alteration of awareness Qualified Code(s): R40.4 - Transient alteration of awareness (4) Hypersensitivity SNOMED Code(s): 316742428 ICD Code: T78.40XA - ALLERGY, UNSPECIFIED, INITIAL ENCOUNTER Status: Resolved Current Visit: Yes (5) Acute renal failure SNOMED Code(s): 82456674 ICD Code: N17.9 - ACUTE KIDNEY FAILURE, UNSPECIFIED Status: Resolved Current Visit: Yes Qualifiers: Acute renal failure type: with acute tubular necrosis Qualified Code(s): N17.0 - Acute kidney failure with tubular necrosis (6) Hypotension SNOMED Code(s): 57917919 ICD Code: I95.9 - HYPOTENSION, UNSPECIFIED Status: Resolved Current Visit : Yes Qualifiers: Hypotension type: other hypotension type Qualified Code(s): I95.89 - Other hypotension (7) UTI (urinary tract infection) SNOMED Code(s): 04087406 ICD Code: N39.0 - URINARY TRACT INFECTION, SITE NOT SPECIFIED Status: Acute Current Visit: Yes Qualifiers: Urinary tract infection type: site unspecified Hematuria presence: without hematuria Qualified Code(s): N39.0 - Urinary tract infection, site not specified (8) Dehydration SNOMED Code(s): 02576659 ICD Code: E86.0 - DEHYDRATION Status: Resolved Current Visit: Yes (9) Skin breakdown SNOMED Code(s): 651705567 ICD Code: L90.9 - ATROPHIC DISORDER OF SKIN, UNSPECIFIED Status: Resolved Current Visit: Yes (10) HTN, goal below 140/90 SNOMED Code(s): 50531788 ICD Code: I10 - ESSENTIAL (PRIMARY) HYPERTENSION Status: Acute Current Visit: Yes - Patient Summary/Data Operative Procedure(s) Performed: None Complications: None Consults: Consultations 02/25/18 19:23 Consult to Case Management/Revenue Liaison [CONS] Routine OT Evaluation and Treatment [CONS] Routine PT Evaluation and Treatment [CONS] Routine 02/26/18 17:46 Consult to Speech Language Pathology [ENVELOPE MAKER Evaluation and Treatment] [CONS] Routine 03/01/18 12:03 Consult to Physician [CONS] Routine Labs Pending at D/C: None Recommended Follow-up Testing/Procedures: None Planned Operative Procedure(s) after DC: None - Patient Instructions Diet: Heart Healthy Diet, Usual Diet as Tolerated Diet, Other: Please drink adequate fluids Activity: As Tolerated Driving: Do Not Drive Showering/Bathing: May Shower Notify Provider of: Fever, Increased Pain, Nausea and/or Vomiting Other/Special Instructions: - Please take all new medications as directed. - Resume all home medications and routine home activities as tolerated. - Recommend daily shower and or wash of your private area to reduce incidence of UTI. - Check vitals and follow parameters before taking blood pressure medications. - Recommend drinking adequate fluids to prevent dehydration. - Recommend stopping Trazodone per Psychiatrist. - Recommend seeing Urology for further eval of Severe Urinary Retention. - Call or follow up with your PCP for any questions or concerns after discharge. - Follow up with your PCP in 1- 2 week(s). - Come back or seek immediate care should your symptoms persist or get worse - Discharge Plan *PRESCRIPTION DRUG MONITORING PROGRAM REVIEWED*: Not Applicable *COPY OF PRESCRIPTION DRUG MONITORING REPORT IN PATIENT JOSSY: Not Applicable Prescriptions/Med Rec: amLODIPine Besylate [Norvasc] 5 mg PO BID #60 tablet Captopril [Capoten] 12.5 mg PO BID #60 tab Finasteride 5 mg PO BEDTIME #30 tablet hydroCHLOROthiazide [Hydrochlorothiazide] 12.5 mg PO BID #60 cap levoFLOXacin [Levaquin] 500 mg PO Q24H #3 tablet Nystatin [Nystop] 3 gm TOP TID #1 bottle Saccharomyces Boulardii [Florastor] 250 mg PO DAILY #3 cap Home Medications: Home Meds Clopidogrel [Plavix] 75 mg PO DAILY #30 tablet 05/07/16 [Rx] Simvastatin [Zocor] 10 mg PO BEDTIME #30 tablet 05/07/16 [Rx] Bisacodyl [Dulcolax] 10 mg RECTAL DAILY PRN 02/25/18 [History] Mag Hydrox/Al Hydrox/Simeth [Liquid Antacid Suspension] 30 ml PO DAILY PRN 02/25 [History] Sennosides [Senna] 2 tab PO DAILY 02/25/18 [History] Tamsulosin [Flomax] 2 cap PO DAILY 02/25/18 [History] traZODone 25 mg PO BEDTIME 02/25/18 [History] Captopril [Capoten] 12.5 mg PO BID #60 tab 03/03/18 [Rx] FLUoxetine [PROzac] 10 mg PO DAILY #60 cap 03/03/18 [Rx] Finasteride 5 mg PO BEDTIME #30 tablet 03/03/18 [Rx] Metoprolol Succinate 25 mg PO DAILY #0 03/03/18 [Rx] Nystatin [Nystop] 3 gm TOP TID #1 bottle 03/03/18 [Rx] Saccharomyces Boulardii [Florastor] 250 mg PO DAILY #3 cap 03/03/18 [Rx] amLODIPine Besylate [Norvasc] 5 mg PO BID #60 tablet 03/03/18 [Rx] hydroCHLOROthiazide [Hydrochlorothiazide] 12.5 mg PO BID #60 cap 03/03/18 [Rx] levoFLOXacin [Levaquin] 500 mg PO Q24H #3 tablet 03/03/18 [Rx] Patient Handouts: Acute Kidney Injury, Adult, Hypotension, [id number], Allergies, Adult, [id number], Confusion, Benign Prostatic Hyperplasia, Urinary Tract Infection, Adult, [id number], Hypertension, [id number]-[id number], Dehydration, Elderly, [id number]-[id number], Bacteremia Referrals: Richard Salazar MD [Primary Care Provider] - - Discharge Summary/Plan Comment DC Time >30 min.: Yes (45 mins) Discharge Summary/Plan Comment: Discharge to Home - General Info Date of Service: 03/03/18 Admission Dx/Problem (Free Text: Admission Diagnosis/Problem Admission Diagnosis/Problem UTI, Urinary tract infectious disease Subjective Update: Follow Up Functional Status: Reports: Pain Controlled, Tolerating Diet, Ambulating, Urinating - Review of Systems General: Denies: Fever HEENT: Reports: No Symptoms Pulmonary: Denies: Shortness of Breath Gastrointestinal: Denies: Abdominal Pain, Nausea, Vomiting Genitourinary: Reports: Retention Musculoskeletal: Reports: No Symptoms Skin: Denies: Cyanosis, Mottled, Pallor, Diaphoresis, Bruising Neurological: Denies: Confusion, Difficulty Walking, Weakness, Gait Disturbance Psychiatric: Denies: Depression, Anxiety, Agitation, Hallucinations - Patient Data Vitals - Most Recent: Last Vital Signs Temp 37.1 C 03/03/18 12:33 Pulse 86 03/03/18 08:38 Resp 16 03/03/18 12:33 BP 135/73 03/03/18 12:33 Pulse Ox 93 L 03/03/18 12:33 Weight - Most Recent: 96.162 kg I&O - Last 24 hours: Intake & Output 03/02/18 03/03/18 03/03/18 22:59 06:59 14:59 Intake Total 240 600 920 Output Total 924 505 435 Balance -685 34 485 Lab Results - Last 24 hrs: Laboratory Results - last 24 hr 03/03/18 03/03/18 Range/Units 05:12 05:12 WBC 12.18 H (4.23-9.07) K/mm3 RBC 5.00 (4.63-6.08) M/mm3 Hgb 13.6 L (13.7-17.5) gm/L Hct 42.3 (40.1-51.0) % MCV 84.6 (79.0-92.2) fl MCH 27.2 (25.7-32.2) pg MCHC 32.2 (32.2-35.5) g/dl RDW Std Deviation 44.9 H (35.1-43.9) fL Plt Count 267 (163-337) K/mm3 MPV 9.9 (9.4-12.3) fl Neut % (Auto) 70.1 H (34.0-67.9) % Lymph % (Auto) 13.6 L (21.8-53.1) % Desha % (Auto) 11.0 (5.3-12.2) % Eos % (Auto) 2.1 (0.8-7.0) Baso % (Auto) 0.2 (0.1-1.2) % Neut # (Auto) 8.54 H (1.78-5.38) K/mm3 Lymph # (Auto) 1.66 (1.32-3.57) K/mm3 Desha # (Auto) 1.34 H (0.30-0.82) K/mm3 Eos # (Auto) 0.25 (0.04-0.54) K/mm3 Baso # (Auto) 0.02 (0.01-0.08) K/mm3 Manual Slide Review Abnormal smear Sodium 140 (136-145) mEq/L Potassium 3.7 (3.5-5.1) mEq/L Chloride 108 H (98-107) mEq/L Carbon Dioxide 27 (21-32) mEq/L Anion Gap 8.7 (5-15) BUN 29 H (7-18) mg/dL Creatinine 1.2 (0.7-1.3) mg/dL Est Cr Clr Drug Dosing 59.02 mL/min Estimated GFR (MDRD) 60 (>60) mL/min BUN/Creatinine Ratio 24.2 H (14-18) Glucose 101 (83-115) mg/dL Calcium 8.6 (8.5-10.1) mg/dL Magnesium 1.9 (1.8-2.4) mg/dl C-Reactive Protein 3.1 H* (<1.0) mg/dL TOMY Results - Last 24 hrs: Microbiology 02/27/18 16:05 Aerobic Blood Culture - Preliminary Blood - Venous - Lab Draw NO GROWTH AFTER 3 DAYS Anaerobic Blood Culture - Final 02/27/18 15:18 Aerobic Blood Culture - Preliminary Blood - Venous NO GROWTH AFTER 3 DAYS Anaerobic Blood Culture - Preliminary NO GROWTH AFTER 3 DAYS 02/28/18 14:00 Aerobic Blood Culture - Preliminary Blood NO GROWTH AFTER 2 DAYS Anaerobic Blood Culture - Final 02/25/18 16:40 Urine Culture - Final Urine, Catheterized Escherichia Coli Aerococcus Urinae Med Orders - Current: Current Medications Acetaminophen (Tylenol) 650 mg PO Q6H PRN PRN Reason: Fever Last Admin: 03/02/18 08:17 Dose: 650 mg Acetaminophen/Butalbital/Caffeine (Fioricet 325-50-40 Mg) 1 tab PO Q6H PRN PRN Reason: Headache Hydrocodone Bitart/Acetaminophen (Burns 325-5 Mg) 1 tab PO Q4H PRN PRN Reason: Pain (moderate 4-6) Al Hydroxide/Mg Hydroxide (Mag-Al Plus) 30 ml PO DAILY PRN PRN Reason: INDIGESTION Albuterol/Ipratropium (Duoneb 3.0-0.5 Mg/3 Ml) 3 ml NEB Q4H PRN PRN Reason: Shortness Of Breath/wheezing Last Admin: 03/01/18 08:13 Dose: 3 ml Amlodipine Besylate (Norvasc) 10 mg PO BEDTIME [facility] Last Admin: 03/02/18 20:31 Dose: 10 mg Bisacodyl (Dulcolax) 10 mg RECTAL DAILY PRN PRN Reason: Constipation Bisacodyl (Dulcolax) 5 mg PO DAILY PRN PRN Reason: Constipation Captopril (Capoten) 6.25 mg PO Q8H [facility] Last Admin: 03/03/18 08:39 Dose: 6.25 mg Clopidogrel Bisulfate (Plavix) 75 mg PO DAILY [facility] Last Admin: 03/03/18 08:38 Dose: 75 mg Docusate Sodium (Colace) 100 mg PO BID PRN PRN Reason: Constipation Doxazosin Mesylate (Cardura) 2 mg PO BID [facility] Last Admin: 03/03/18 08:39 Dose: 2 mg Finasteride (Proscar) 5 mg PO BEDTIME [facility] Last Admin: 03/02/18 20:29 Dose: 5 mg Fluoxetine HCl (Prozac) 10 mg PO DAILY [facility] Last Admin: 03/03/18 08:38 Dose: 10 mg Heparin Sodium (Porcine) (Heparin Sodium) 5,000 units SUBCUT Q8H [facility] Last Admin: 03/03/18 11:38 Dose: 5,000 units Hydralazine HCl (Apresoline) 20 mg IVPUSH Q4H PRN PRN Reason: Hypertension Last Admin: 03/02/18 04:28 Dose: 20 mg Hydromorphone HCl (Dilaudid) 0.25 mg IVPUSH Q2H PRN PRN Reason: Pain (severe 7-10) Promethazine HCl 6.25 mg/ (Sodium Chloride) 50.25 mls @ 100 mls/hr IV Q6H PRN PRN Reason: Nausea/Vomiting Sodium Chloride (Normal Saline) 1,000 mls @ 125 mls/hr IV ASDIRECTED [facility] Last Admin: 03/01/18 03:39 Dose: 125 mls/hr Levofloxacin (Levaquin) 500 mg PO Q24H [facility] Last Admin: 03/03/18 13:03 Dose: 500 mg Lorazepam (Ativan) 2 mg IVPUSH Q4H PRN PRN Reason: Seizures Lorazepam (Ativan) 1 mg IV Q6H PRN PRN Reason: Anxiety Magnesium Sulfate (Pharmacy To Dose - Magnesium Replacement) 0 dose .XX ASDIRECTED PRN PRN Reason: RX TO DOSE MAG Metoprolol Succinate (Toprol Xl) 25 mg PO DAILY [facility] Last Admin: 03/03/18 08:38 Dose: 25 mg Metoprolol Tartrate (Lopressor) 5 mg IVPUSH Q4H PRN PRN Reason: Tachycardia Nicotine (Habitrol) 21 mg TRDERM DAILY PRN PRN Reason: Nicotine Dependence Nystatin (Nystop) 0 gm TOP TID [facility] Last Admin: 03/03/18 08:44 Dose: 1 gm Ondansetron HCl (Zofran) 4 mg IV Q6H PRN PRN Reason: Nausea/Vomiting Last Admin: 03/02/18 08:33 Dose: 4 mg Polyethylene Glycol (Miralax) 17 gm PO DAILY PRN PRN Reason: Constipation Potassium Chloride (Pharmacy To Dose - Potassium Replacement) 0 dose .XX ASDIRECTED PRN PRN Reason: RX TO DOSE K Saccharomyces Boulardii (Florastor) 250 mg PO DAILY [facility] Last Admin: 03/03/18 08:38 Dose: 250 mg Senna (Senna) 17.2 mg PO DAILY [facility] Last Admin: 03/03/18 08:38 Dose: 17.2 mg Senna (Senna) 17.2 mg PO DAILY PRN PRN Reason: Constipation Senna/Docusate Sodium (Senna Plus) 1 tab PO BID PRN PRN Reason: Constipation Simvastatin (Zocor) 10 mg PO BEDTIME [facility] Last Admin: 03/02/18 20:30 Dose: 10 mg Tamsulosin HCl (Flomax) 0.4 mg PO BID [facility] Last Admin: 03/03/18 08:39 Dose: 0.4 mg Discontinued Medications Acetaminophen (Tylenol) 650 mg RECTAL NOW ONE Stop: 02/25/18 14:59 Last Admin: 02/25/18 15:11 Dose: 650 mg Albuterol/Ipratropium (Duoneb 3.0-0.5 Mg/3 Ml) 3 ml NEB ONETIME ONE Stop: 02/25/18 15:27 Last Admin: 02/25/18 15:28 Dose: 3 ml Amlodipine Besylate (Norvasc) 5 mg PO ONETIME ONE Stop: 03/02/18 13:27 Last Admin: 03/02/18 14:48 Dose: 5 mg Bumetanide (Bumex) 0.5 mg IVPUSH ONETIME ONE Stop: 03/02/18 08:18 Last Admin: 03/02/18 08:40 Dose: 0.5 mg Bumetanide (Bumex) 0.5 mg IVPUSH ONETIME ONE Stop: 03/02/18 18:01 Last Admin: 03/02/18 17:11 Dose: 0.5 mg Captopril (Capoten) 6.25 mg PO Q8H [facility] Diphenhydramine HCl (Benadryl) 50 mg PO ONETIME ONE Stop: 02/27/18 08:56 Last Admin: 02/27/18 08:54 Dose: 50 mg Famotidine (Pepcid) 20 mg IVPUSH ONETIME STA Stop: 02/27/18 09:31 Last Admin: 02/27/18 09:52 Dose: 20 mg Famotidine (Pepcid) 20 mg PO BID [facility] Stop: 02/28/18 09:01 Last Admin: 02/28/18 09:16 Dose: 20 mg Furosemide (Lasix) 10 mg PO DAILY [facility] Furosemide (Lasix) 10 mg PO DAILY [facility] Last Admin: 03/02/18 08:04 Dose: 10 mg Hydromorphone HCl (Dilaudid) 0.25 mg IVPUSH Q2H PRN PRN Reason: Pain (severe 7-10) Sodium Chloride (Normal Saline) 1,000 mls @ 1,000 mls/hr IV ONETIME ONE Stop: 02/25/18 16:18 Last Admin: 02/25/18 16:10 Dose: Not Given Sodium Chloride (Normal Saline) 1,000 mls @ 999 mls/hr IV ONETIME ONE Stop: 02/25/18 16:36 Last Admin: 02/25/18 15:43 Dose: 999 mls/hr Sodium Chloride (Normal Saline) 1,000 mls @ 999 mls/hr IV ONETIME ONE Stop: 02/25/18 17:53 Last Admin: 02/25/18 16:55 Dose: 999 mls/hr Ceftriaxone Sodium 2 gm/ (Sodium Chloride) 100 mls @ 100 mls/hr IV ONETIME ONE Stop: 02/25/18 18:17 Last Admin: 02/25/18 18:05 Dose: 100 mls/hr Sodium Chloride (Normal Saline) 1,000 mls @ 999 mls/hr IV ONETIME ONE Stop: 02/25/18 19:05 Last Admin: 02/25/18 17:55 Dose: 999 mls/hr Sodium Chloride (Normal Saline) 1,000 mls @ 150 mls/hr IV ASDIRECTED [facility] Last Admin: 02/26/18 02:47 Dose: 150 mls/hr Sodium Chloride (Normal Saline) 1,000 mls @ 150 mls/hr IV ASDIRECTED [facility] Last Admin: 02/25/18 21:00 Dose: 150 mls/hr Ceftriaxone Sodium 1 gm/ (Sodium Chloride) 100 mls @ 200 mls/hr IV Q24H [facility] Last Admin: 02/26/18 08:35 Dose: 200 mls/hr Levofloxacin/Dextrose 500 mg/ (Premix) 100 mls @ 100 mls/hr IV ONETIME ONE Stop: 02/26/18 16:29 Last Admin: 02/26/18 15:26 Dose: 100 mls/hr Levofloxacin/Dextrose 500 mg/ (Premix) 100 mls @ 100 mls/hr IV Q24H [facility] Last Admin: 02/27/18 14:32 Dose: 100 mls/hr Piperacillin Sod/Tazobactam (Sod 4.5 gm/ Sodium Chloride) 100 mls @ 200 mls/hr IV ONETIME ONE Stop: 02/26/18 15:29 Last Admin: 02/26/18 15:27 Dose: 200 mls/hr Piperacillin Sod/Tazobactam (Sod 4.5 gm/ Sodium Chloride) 100 mls @ 25 mls/hr IV Q8H [facility] Last Admin: 02/27/18 06:05 Dose: 25 mls/hr Levofloxacin/Dextrose 750 mg/ (Premix) 150 mls @ 100 mls/hr IV Q24H [facility] Last Admin: 03/01/18 14:47 Dose: 100 mls/hr Magnesium Oxide (Magnesium Oxide) 800 mg PO ONETIME ONE Stop: 03/02/18 09:01 Last Admin: 03/02/18 10:22 Dose: 800 mg Methylprednisolone Sodium Succinate (Solu-Medrol) 40 mg IVPUSH ONETIME ONE Stop: 02/27/18 09:31 Last Admin: 02/27/18 09:51 Dose: 40 mg Pantoprazole Sodium (Protonix Iv) 80 mg IVPUSH .BOLUS ONE Stop: 02/25/18 17:58 Last Admin: 02/25/18 18:15 Dose: 80 mg Tamsulosin HCl (Flomax) 0.8 mg PO BID [facility] Trazodone HCl (Trazodone) 25 mg PO BEDTIME [facility] Last Admin: 03/01/18 20:12 Dose: 25 mg - Exam General: Reports: Alert, Cooperative, No Acute Distress HEENT: Reports: Pupils Equal, Pupils Reactive, Mucous Membr. Moist/[place], Other ( Poor dentition) Neck: Reports: Supple, Trachea Midline Lungs: Reports: Normal Respiratory Effort, Decreased Breath Sounds Cardiovascular: Reports: Regular Rate, Regular Rhythm GI/Abdominal Exam: Normal Bowel Sounds, Soft, Non-Tender, No Organomegaly, No Distention, No Abnormal Bruit (Male) Exam: Deferred Rectal (Males) Exam: Deferred Back Exam: Reports: Normal Inspection, Decreased Range of Motion Extremities: Normal Inspection, Normal Range of Motion, Non-Tender, No Pedal Edema, Normal Capillary Refill Skin: Reports: Warm, Dry, Intact Neurological: Reports: No New Focal Deficit Psy/Mental Status: Reports: Alert, Depressed. Denies: Normal Affect
--- NOTE | 2018-03-04 07:42 | CONS ---
CONSULTING PHYSICIAN: Kaushik Robert MD DATE OF CONSULTATION: 03/02/2018 IDENTIFICATION: The patient is a 72-year-old male who is admitted to the inpatient MICU at [facility] in [place], [place]. He is seen for psychiatric evaluation. CHIEF COMPLAINT: "Good question." HISTORY OF PRESENT ILLNESS: The patient is a 72-year-old male, retirement resident from [facility], who is admitted to the hospital on 02/25/2018 with urosepsis. The patient had a stroke in 2014. He has been diagnosed with neurogenic bladder. He also has a history of hypertension. Treatment team is asking that the patient be assessed for possible depression. On interview, the patient is difficult to interview and staff does assist with interviewing process. For his part, the patient is alert and oriented x2 to person and place, as well as to month and year, but not to day of the week. He reports that his mood is good. Denies any vegetative symptoms of depression. Staff is reporting that he will eat and the patient is stating that he does have appetite, but staff is stating that he will only eat when food is placed in front of him, but otherwise he denies that he is hungry or wanting food. The patient has been a resident at [facility] and staff is reporting that he has become more restricted at this point in time, even though the patient is denying any symptoms of depression. He denies any suicidal or homicidal. He denies any psychotic, delusional, or paranoid symptoms. PSYCHIATRIC MEDICATIONS: At presentation, trazodone 25 mg at bedtime. ALLERGIES: 1. Piperacillin. 2. Tazobactam. PAST MEDICAL HISTORY: 1. Status post CVA in 2014. 2. Urosepsis, currently being treated. 3. Neurogenic bladder. 4. Hypertension. REVIEW OF SYSTEMS: Aside from neuro, genitourinary and cardiovascular, all other major organ systems are negative at this point in time for acute difficulties or complications. FAMILY HISTORY: None report. PAST PSYCHIATRIC AND CD HISTORY: The patient is denying, although again the patient does have order for trazodone 25 mg at bedtime and it is not clear who had been prescribing this on outside, whether it was psychiatric provider or his primary care provider. SOCIAL HISTORY: The patient is originally from [place], [place]. He used to be a rancher. He lives at [facility]. He is not , has no children. MENTAL STATUS EXAM: The patient is a 72-year-old white male, in no apparent distress. Speech is significant for increased latency of response, shortened duration of utterance. Psychomotor activity is within normal limits. There are no abnormal motor movements or tics. Gait and station are not observed. This patient is lying in bed during the consult. The patient is cognitively oriented x2 to person and place. He does know the month and the year, but not specific day or date. Mood is okay. Affect is laconic, but cooperative overall for the purposes of the inpatient consult. There is no behavioral or stated evidence of acute suicidal or homicidal ideation or acute psychotic, delusional, or paranoid symptoms. Thought processes slow. There are no manic symptoms or loose associations evident. Judgment and insight appear somewhat impaired secondary to sequela from his CVA. Motivation for help appears fair to poor. VITALS: 142/69, 97, 20, and 98.7 degrees. IMPRESSION: Hudson I: 1. Depression, not otherwise specified, F32.9. 2. Rule out major depressive disorder. 3. Rule out pseudodementia versus sequelae from stroke that is causing some symptoms of thought blocking. Hudson II: None. Hudson III: 1. Status post cerebrovascular accident in 2014. 2. Urosepsis, currently being treated. 3. Neurogenic bladder. 4. History of hypertension. Hudson IV: Severe. Hudson V: 55 to 60. PLAN: 1. Discontinue trazodone. 2. Begin trial of Prozac 10 mg q.a.m. to help with symptoms of depression and mood. 3. Other medications as dosed and prescribed by the patient's primary inpatient medical treatment team. 4. We will continue follow up with the patient on an as-needed basis while he remains on the inpatient MICU at [facility] in [place], [place]. 5. We will follow up with the patient sooner if any complications in the interim. 6. If the patient has breakthrough symptoms of insomnia, I would anticipate having trazodone or similar agent restarted to help with any type of sleep difficulty. However, in the past, trazodone has had an adverse effect with people who have been status post CVA, so this agent might be better being discontinued going forward if possible. 7. Recommend the patient follow up with Outpatient Psychiatry once he is medically stabilized and discharged back to his retirement residence to assess the overall efficacy of his newly initiated and adjusted psychiatric medication regimen. 8. Crisis plan is in place. MARYCHUY /[id number]
== END 2018-03-03 14:00 | DRG 871 ==
LOC: JD.ED 14:25 → JD.ICU 19:32 → UNDOADMIN 19:36 → JD.ICU 19:36 → UNDODISIN 03-03 14:00
PROVIDERS: ADMIT Internal Medicine; ATTEND Internal Medicine
DX: A41.51 Sepsis due to Escherichia coli [E. coli] (principal); G93.41 Metabolic encephalopathy; A41.9 Sepsis, unspecified organism; N39.0 Urinary tract infection, site not specified; K92.0 Hematemesis; N13.8 Other obstructive and reflux uropathy; N17.9 Acute kidney failure, unspecified; I69.354 Hemiplegia and hemiparesis following cerebral infarction affecting left non-dominant side; H91.90 Unspecified hearing loss, unspecified ear; I10 Essential (primary) hypertension; K59.09 Other constipation; R33.9 Retention of urine, unspecified; N31.9 Neuromuscular dysfunction of bladder, unspecified; I69.398 Other sequelae of cerebral infarction; H90.5 Unspecified sensorineural hearing loss; E78.5 Hyperlipidemia, unspecified; M62.81 Muscle weakness (generalized); R09.02 Hypoxemia; N40.1 Benign prostatic hyperplasia with lower urinary tract symptoms; N39.498 Other specified urinary incontinence; R33.8 Other retention of urine; E86.0 Dehydration; E86.9 Volume depletion, unspecified; L90.9 Atrophic disorder of skin, unspecified; B96.89 Other specified bacterial agents as the cause of diseases classified elsewhere; I69.391 Dysphagia following cerebral infarction; R13.10 Dysphagia, unspecified; R49.0 Dysphonia; L27.0 Generalized skin eruption due to drugs and medicaments taken internally; T36.0X5A Adverse effect of penicillins, initial encounter; I69.328 Other speech and language deficits following cerebral infarction; M19.90 Unspecified osteoarthritis, unspecified site; F32.9 Major depressive disorder, single episode, unspecified; Z88.1 Allergy status to other antibiotic agents; G47.00 Insomnia, unspecified; Z79.82 Long term (current) use of aspirin; Z79.899 Other long term (current) drug therapy; R50.9 Fever, unspecified; R11.2 Nausea with vomiting, unspecified; R41.82 Altered mental status, unspecified
CPT/HCPCS: 36415 ×2; 70450; 71045; 80053; 81001; 82962; 83605 ×2; 83735; 84484; 85025; 87040 ×2; 87077; 87086; 87088 ×2; 87181 ×2; 87184; 87186 ×2; 93005; 94640; 96361; 96365; 96375; 99285; A9270; C9113; J0696; J7030; J7040 ×4; 51701; 51702; 51798; 76770; 76770-26; 80048; 86140; 92610-GN; 93010; 97110-GO; 97110-GP; 97116-GP; 97161-GP; 97162-GP; 97166-GO; 97530-GO; J0360; J1644; J1956; J2405; J2543; J2920; J3490; J7620-GY